=== PATIENT | female | born 1940 | race Caucasian/White ===

== ENCOUNTER 2017-12-21 12:38 | Inpatient (IN) | payer MEDICARE ==
[2017-12-21 13:37] VITALS: BMI 38.8
[2017-12-21 13:59] LABS: #Basophils 0.1 thou/uL (0.0-0.2); #Eosinphils 0.1 thou/uL (0.0-0.7); #Lymphocytes 0.9 thou/uL (1.20-3.40); #Monocytes 0.6 thou/uL (0.11-0.59); #Neutrophils 7.2 thou/uL (1.40-6.50); %Basophils 0.7 % (0.0-1.0); %Eosinophils 0.9 % (0.0-10.0); %Lymphocytes 10.6 % (21.0-51.0); %Monocytes 6.4 % (0.0-10.0); %Neutrophils 81.4 % (42.0-75.0); Hemoglobin 13.9 g/dL (12.0-16.0); Mean Corpuscular HGB CONC 32.2 g/dL (32.0-36.0); Mean Corpuscular Hemoglobin 29.9 pg (27.0-31.0); Mean Corpuscular Volume 92.7 fL (78.0-98.0); Mean Platelet Volume 8.5 fL (7.4-10.4); Platelet Count 236 thou/uL (130-400); Red Blood Cell (RBC) Count 4.65 mill/uL (4.20-5.40); White Blood Cell (WBC) Count 8.8 thou/uL (4.8-10.8)
[2017-12-21 14:05] LABS: INR-International Normal Ratio 1.3; PTT 29.5 SEC (22.9-36.1); Prothrombin Time 15.8 SEC (12.0-14.7)
[2017-12-21 14:20] LABS: ALT (SGPT) 10 U/L (8-55); AST (SGOT) 19 U/L (5-34); Albumin 3.8 g/dL (3.4-4.8); Alkaline Phosphatase 129 U/L (40-150); Anion Gap 11 mmol/L (10-20); BUN (Urea Nitrogen) 13 mg/dL (9.8-20.1); Calc. Creatinine Clearance 105 mL/min (70-130); Calcium 9.5 mg/dL (7.8-10.44); Carbon Dioxide 29 mmol/L (23-31); Chloride 106 mmol/L (98-107); Estimated GFR-MDRD 68; Globulin 2.8 g/dL (2.4-3.5); Glucose 109 mg/dL (83-110); Potassium 3.4 mmol/L (3.5-5.1); Protein, Total 6.6 g/dL (6.0-8.3); Sodium 143 mmol/L (136-145)
--- NOTE | 2017-12-21 14:28 | RAD ---
THREE VIEWS LEFT FOOT: Comparison: None. History: Non-healing foot ulcer. FINDINGS: Three views of the left foot shows the patient to be status post resection of the distal aspect of th e fifth metatarsal. There is a wound along the great toe metatarsal phalangeal joint. There is erosio n of the first metatarsal head concerning for osteomyelitis. No other osseous erosions are seen. Dege nerative changes are seen in the midfoot and hindfoot. IMPRESSION: Osseous erosions involving the first metatarsal head are concerning for osteomyelitis. POS: GAIL
[2017-12-21] MEDS: cefTRIAXone\\ROCEPHIN 2 GM in Sodium Chloride 0.9% 100 ML IVPB SCH (18:25)
[2017-12-21] MEDS: Pregabalin 50 MG CAP PO SCH (19:59)
[2017-12-21] MEDS: metroNIDAZOLE 500 MG TAB PO SCH (19:59)
[2017-12-21] MEDS: Melatonin 3 MG TAB PO SCH (19:59)
[2017-12-21] MEDS: traMADol HCl 50 MG TAB PO SCH (20:02)
[2017-12-21] MEDS: Acyclovir 400 mg Tablet PO SCH (20:03)
[2017-12-21] MEDS: Fluticasone Propionate Nasal Spray 16 gm Bottle NASAL SCH (20:04)
--- NOTE | 2017-12-21 20:32 | CON ---
DATE OF CONSULTATION: 12/21/2017 REASON FOR CONSULTATION: Possible osteomyelitis, left first MPJ area. HISTORY OF PRESENT ILLNESS: A 77-year-old who has a history of hypertension, deep vein thrombosis, p ulmonary disease with pulmonary embolism and neuropathy of unclear etiology, who has developed an ulc eration of the left first MPJ skin site for the past few weeks, previously managed by paramedical aide with progression of the area of ulceration and development of areas of necrosis. Patient was admitted, a nd she has plain film evidence of areas of osteolysis involving the first metatarsal head. The patient currently is in no apparent distress, no headaches, visual symptoms, sore throat, odynoph agia, dysphagia. No cough or sputum production or chest pain. No abdominal pain or diarrhea. No ge nitourinary symptoms. No neurological symptoms outside the neuropathy related symptoms. PAST MEDICAL HISTORY: Prior DVT and neuropathy of unclear etiology, also with history of atrial fibr illation on Xarelto and had previously an vena cava filter placed. PAST SURGICAL HISTORY: Includes left TKR, right shoulder repair, tubal ligation, appendectomy. I be lieve she also had a right TKR. ALLERGIES: None. She does have some adverse gastrointestinal reactions to OPIOIDS. CURRENT MEDICATION LIST: No medications are recorded at this time. PHYSICAL EXAMINATION: VITAL SIGNS: Temperature 98, blood pressure 160/79, pulse 75, respirations 16, O2 sat 99%. SKIN: Shows a round necrotic ulcer on medial aspect of the left first MPJ skin site measuring about 3 cm in diameter, appears to be a tendon exposure in the medial aspect and I was able to probe it abo ut 1 cm, but no evidence of bone exposure upon probing of the area. She has evidence of mild stasis dermatitis in lower extremities. Peripheral IV access. No Santoro catheter. HEENT: Ocular movements are conjugate. Nasal passages patent. Oral cavity normal. NECK: Supple. No jugular venous distention. LUNGS: Symmetric. Clear breath sounds. HEART: S1, S2, regular rate. No S3, S4. ABDOMEN: Soft, nondistended, nontender. No ascites. No bladder distention. EXTREMITIES: Pulses are faintly palpable in popliteals and dorsalis pedis. Cap refill is normal. NEUROLOGIC: Cognitive function appears to be normal. LABORATORY DATA: White cell count 8.8, hemoglobin 13.9, platelets 236. Sodium 143, creatinine 0.82 with normal transaminases. ASSESSMENT: History of atrial fibrillation, prior deep vein thrombosis, varicosities with I believe a recent procedure of venous ablation in the left lower extremity and now development of an ulcerated area in the medial aspect of the left MPJ skin site, probably secondary to neuropathy with progressi on and evidence of osteomyelitis. DISCUSSION: There is evidence of penetration of this ulcer and the x-ray indicates osteomyelitis of the metatarsal head by contiguity. This area will require debridement and maybe even demand amputati on of the first ray. We will start antimicrobial therapy for the time being with broad spectrum cove rage and consult General Surgery. We will order formal arterial studies if those have not been done yet.
--- NOTE | 2017-12-21 21:59 | ULT ---
LEFT LOWER EXTREMITY ARTERIAL DOPPLER ULTRASOUND: 12/21/17 HISTORY: Left lower extremity pain. FINDINGS: The peak systolic velocities in the left lower extremity arteries are as follows: NAPHTHALENE STILL OPERATOR: 143 cm/s. Profunda: 80 cm/s. Proximal SFA: 127 cm/s. Mid SFA: 144 cm/s. Distal SFA: 105 cm/s. Popliteal artery: 154 cm/s. Anterior tibial artery: 146 cm/s. Posterior tibial artery: 80 cm/s. Dorsalis pedis artery: 44 cm/s. There is triphasic waveform in the NAPHTHALENE STILL OPERATOR and proximal SFA, biphasic in the profunda and monophasic in t he remainder of the arteries mentioned above. IMPRESSION: No evidence of arterial occlusion in the left lower extremity. POS: GAIL
--- NOTE | 2017-12-22 06:03 | PDOC.EVN ---
Event Note - Event Note Event Note: h&p dictated [id number]
--- NOTE | 2017-12-22 07:58 | HP ---
CHIEF COMPLAINT: Concern for osteomyelitis. HISTORY OF PRESENT ILLNESS: This is a 77-year-old female who was visiting her customer advocate on a [facility] outpatient followup when she was found to have a foot wound progression that was concerning for t he possibility of osteomyelitis. The patient was subsequently admitted via a direct admission proces s to our service. The patient has a known prior history of hypertension, hyperlipidemia, depression, Alzheimer's, atria l fibrillation, prior history of PE and DVT in 2012 and chronic pain who presented with a concern for osteomyelitis secondary to an ulcer located along the medial aspect of her left first metatarsal. At the time of my evaluation, the patient is accompanied by her daughter at bedside. They state that over the last several months this wound has been treated on an outpatient basis with poor healing. The patient has longstanding neuropathy and typically does not have any pain or discomfort in both of her lower extremities; however, over the last few days she has developed an increasingly throbbing s ensation around that wound area. The patient otherwise denies any fevers, chills, nausea or vomiting . The patient denies any additional or recent trauma to that area. The patient denies any prior sim ilar episodes. REVIEW OF SYSTEMS: As per HPI. CONSTITUTIONAL: No fevers, no chills, no significant weight changes in the last few months. HEENT: No new headaches, lightheadedness, dizziness, or changes in vision. CARDIOVASCULAR: Denies any chest pain, chest pressure, easy fatigability with exertion, left-sided a rm numbness or tingling. RESPIRATORY: No dyspnea with exertion. No new shortness of breath, no new cough or congestion. GASTROINTESTINAL: Denies any nausea, vomiting, abdominal pain. Denies any issues with constipation or diarrhea. GENITOURINARY: Denies any dysuria, change in urinary frequency, quality, quantity or odor. MUSCULOSKELETAL: No new myalgias or arthralgias, other than the pain described above in the HPI. The remainder of the review of systems is otherwise negative. PAST MEDICAL HISTORY: As per history of present illness, includes: 1. Hypertension. 2. Hyperlipidemia. 3. Cholesterol. 4. A prior history of PE and left lower extremity DVT in 2011. 5. Atrial fibrillation. 6. Spondylosis of the lower spine, status post multiple steroid injections. 7. Status post fifth metatarsal resection of the fifth metatarsal head, resection of the left foot i n 2011. 8. IVC filter placement for DVT in 2014. 9. Left heart catheterization in 2013. 10. Left total knee replacement in 2014. 11. History of macular degeneration. 12. History of "Alzheimer's" disease. HOME MEDICATIONS: Please see the EMR for full details. The patient denies any recent rjvt-trk-smekq er medications, any herbal supplementations or any new vitamins. The patient denies any recent spence es to her home medication regimen which currently include memantine 5 mg p.o. daily, donepezil 5 mg p .o. daily, omeprazole 20 mg p.o. daily, aspirin 325 mg p.o. daily. Cetirizine 10 mg p.o. daily, tomás tonin 3 mg p.o. at bedtime, pregabalin 50 mg p.o. b.i.d., Cholecalciferol 4000 units p.o. daily. Acy clovir 400 mg p.o. b.i.d., tramadol 50 mg p.o. at bedtime, Fluticasone 2 sprays each nares at bedtime , diltiazem 120 mg p.o. daily. ALLERGIES: Include MORPHINE which filled the patient is a sense of overwhelming drude as the reactio n. FAMILY HISTORY: The patient denies any family history of known peripheral vascular disease. Denies any family history of recurrent infections or diabetic infection. SOCIAL HISTORY: The patient resides with her daughter who was with her at bedside. The patient does not use any alcohol, tobacco or illicit drug use actively. CODE STATUS: The daughter is designated as the medical decision maker if the patient is unable to m chepe her medical decisions. The patient is currently a full code as per discussion at bedside. PHYSICAL EXAMINATION: GENERAL: The patient is awake, alert, conversant, in no acute distress, seated in the hospital bed. HEENT: Normocephalic, atraumatic. Ocular motions are intact. Moist mucous membranes. CARDIOVASCULAR: S1, S2. No murmurs, rubs or gallops. Pulses 2+ bilateral upper extremities, trace bilateral peripheral edema. No carotid bruits. RESPIRATORY: Reasonable air movement. No wheezes, rales or rhonchi. CHEST: Clear to auscultation. No conversational dyspnea. ABDOMEN: Positive bowel sounds, soft, nontender to palpation. MUSCULOSKELETAL: Able to move all 4 extremities independently. The affected lesion is seen, it is a deeply ulcerative lesion and circular in appearance, also with significant amount of purulence scatt ered throughout the lesion which is approximately 1 inch in diameter. IMAGIN12/21/2017, x-ray of the foot. Impression: "osseous erosion involving the first metatarsal head are concerning for osteomyelitis". LABORATORY DATA: WBC 8.8, hemoglobin 13.9, hematocrit 43.1, platelets 236, neutrophils 81%, lymphocy bassem 10.6. PT 15.8, INR 1.3. Sodium 143, potassium 3.4, chloride 106, bicarbonate 59, BUN 13, creati nine 0.82, glucose 109, calcium 9.5, total bilirubin 1.0, AST 19, ALT 10, alkaline phosphatase 129, t otal protein 6.6, albumin 3.8. ASSESSMENT AND PLAN: This is a 77-year-old female who was brought in for concern worsening diabetic ulcer. 1. Concern for probable osteomyelitis. I appreciate Infectious Disease consultation. The patient h as been started on empiric antibiotics including ceftriaxone and metronidazole. Further antibiotic m anagement and infectious management as per Dr. Baum. 2. Prior history of deep venous thrombosis and PE. Continue the patient on her home regimen. The p atient currently also has an IVC filter in place it appears. 3. Left lower extremity pain likely related to the infectious process. General Surgery request has also been placed. Question ideal ____ imaging for the patient beyond x-ray. Whether or not an MRI i s warranted, will defer to both Infectious Disease and General Surgery. 4. Diet: Cardiac. 5. Activity: As tolerated. 6. DVT prophylaxis with enoxaparin.
[2017-12-22] MEDS ORDERED: Non-Formulary Item 1 EACH (Omeprazole [Omeprazole] 20 MG) PO SCH (09:00)
[2017-12-22] MEDS: metroNIDAZOLE 500 MG TAB PO SCH ×3 (09:46→21:20)
[2017-12-22] MEDS: Donepezil HCl 5 MG TAB PO SCH (09:46)
[2017-12-22] MEDS: Aspirin 325 MG TAB PO SCH (09:50)
[2017-12-22] MEDS: Acyclovir 400 mg Tablet PO SCH ×2 (09:51→21:20)
[2017-12-22] MEDS: Cetirizine HCl 10 MG TAB PO SCH (09:51)
[2017-12-22] MEDS: Enoxaparin Sodium 40 MG/0.4 ML SYRINGE SC SCH (09:51)
[2017-12-22] MEDS: Pregabalin 50 MG CAP PO SCH ×2 (09:52→21:20)
[2017-12-22] MEDS: cefTRIAXone\\ROCEPHIN 2 GM in Sodium Chloride 0.9% 100 ML IVPB SCH (16:00)
--- NOTE | 2017-12-22 17:49 | PDOC.PN ---
- Subjective Encounter Start Date: 12/22/17 Encounter Start Time: 08:40 Pt seen for followup re: osteomyelitis. Denies chest pain. denies foot pain. denies fevers. - Objective Vital Signs & Weight: Vital Signs (12 hours) Temp Pulse Resp BP BP Pulse Ox 12/22/17 16:21 98 F 67 19 125/61 94 L 12/22/17 11:29 98 F 63 22 H 138/68 93 L 12/22/17 09:48 73 149/67 H 12/22/17 08:00 93 L 12/22/17 07:31 98.2 F 71 20 156/73 H 93 L Weight Admit Weight 255 lb 5.007 oz Weight 255 lb 5.007 oz I&O: 12/21/17 12/22/17 12/23/17 06:59 06:59 06:59 Intake Total 480 580 Balance 480 580 Result Diagrams: 12/21/17 13:37 12/21/17 13:37 Phys Exam - Physical Examination Obese HEENT: moist MMs, sclera anicteric, oral pharynx no lesions, 2+ tonsils Neck: no nodes, no JVD, supple, full ROM Respiratory: no wheezing, no rales, no rhonchi, clear to auscultation bilateral Cardiovascular: RRR, no rub S1, s2 Gastrointestinal: soft, non-tender, no distention, positive bowel sounds Neurological: moves all 4 limbs Psychiatric: normal affect Deviation from normal: Oriented to person and place, not to time Deviation from normal: Ulcer over medial aspect of left foot Dx/Plan (1) Osteomyelitis Code(s): M86.9 - OSTEOMYELITIS, UNSPECIFIED Status: Acute Comment: continue IV ceftriaxone and metronidazole (2) HTN (hypertension) Code(s): I10 - ESSENTIAL (PRIMARY) HYPERTENSION Status: Chronic Comment: controlled (3) Afib Code(s): I48.91 - UNSPECIFIED ATRIAL FIBRILLATION Status: Chronic Comment: continue diltiazem (4) Alzheimer disease Code(s): G30.9 - ALZHEIMER'S DISEASE, UNSPECIFIED; F02.80 - DEMENTIA IN OTH DISEASES CLASSD ELSWHR W/O BEHAVRL DISTURB Status: Chronic Comment: continue Aricept and Namenda - Plan * . Review of Systems - Review of Systems Constitutional: negative: fever, chills, sweats, weakness, malaise Respiratory: negative: Cough, Shortness of Breath, SOB with Excertion, Pleuritic Pain, Wheezing Cardiovascular: negative: chest pain, palpitations, orthopnea, paroxysmal nocturnal dyspnea, edema, light headedness Gastrointestinal: negative: Nausea, Vomiting, Abdominal Pain, Diarrhea, Constipation, Melena, Hematochezia Musculoskeletal: negative: Neck Pain, Shoulder Pain, Arm Pain, Back Pain, Hand Pain, Leg Pain, Foot Pain Skin: Lesions Neurological: negative: Weakness, Numbness, Incoordination, Change in Speech, Confusion, Seizures - Medications/Allergies Allergies/Adverse Reactions: Allergies Allergy/AdvReac Type Severity Reaction Status Date / Time morphine Allergy Verified 12/21/17 13:16 Medications: Current Medications Acyclovir (Zovirax) 400 mg PO BID [facility] Last Admin: 12/22/17 09:51 Dose: 400 mg Aspirin (Aspirin) 325 mg PO DAILY [facility] Last Admin: 12/22/17 09:50 Dose: 325 mg Cetirizine HCl (Zyrtec) 10 mg PO DAILY [facility] Last Admin: 12/22/17 09:51 Dose: 10 mg Cholecalciferol (Vitamin D3) 4,000 units PO DAILY [facility] Last Admin: 12/22/17 09:47 Dose: 4,000 units Diltiazem HCl (Cardizem Cd) 120 mg PO DAILY [facility] Last Admin: 12/22/17 09:48 Dose: 120 mg Donepezil HCl (Aricept) 5 mg PO DAILY [facility] Last Admin: 12/22/17 09:46 Dose: 5 mg Enoxaparin Sodium (Lovenox) 40 mg SC 0900 [facility] Last Admin: 12/22/17 09:51 Dose: 40 mg Fluticasone Propionate (Flonase Nasal [place]) 0 gm NASAL HS [facility] Last Admin: 12/21/17 20:04 Dose: 2 sprays Ceftriaxone Sodium 2 gm/ (Sodium Chloride) 100 mls @ 200 mls/hr IVPB Q24HR [facility] Last Admin: 12/22/17 16:00 Dose: 100 mls Melatonin (Melatonin) 3 mg PO HS [facility] Last Admin: 12/21/17 19:59 Dose: 3 mg Memantine (Namenda) 5 mg PO DAILY [facility] Last Admin: 12/22/17 09:46 Dose: 5 mg Metronidazole (Flagyl) 500 mg PO TID [facility] Last Admin: 12/22/17 14:25 Dose: 500 mg Pantoprazole Sodium (Protonix) 40 mg PO DAILY [facility] Last Admin: 12/22/17 09:50 Dose: 40 mg Pregabalin (Lyrica) 50 mg PO BID [facility] Last Admin: 12/22/17 09:52 Dose: 50 mg Sodium Chloride (Flush - Normal Saline) 10 ml IVF Q12HR [facility] Last Admin: 12/22/17 09:53 Dose: 10 ml Sodium Chloride (Flush - Normal Saline) 10 ml IVF PRN PRN PRN Reason: Saline Flush Tramadol HCl (Ultram) 50 mg PO HS [facility] Last Admin: 12/21/17 20:02 Dose: 50 mg
[2017-12-22] MEDS: Melatonin 3 MG TAB PO SCH (21:19)
[2017-12-22] MEDS: traMADol HCl 50 MG TAB PO SCH (21:19)
[2017-12-22] MEDS: Fluticasone Propionate Nasal Spray 16 gm Bottle NASAL SCH (21:20)
--- NOTE | 2017-12-23 00:22 | CON ---
DATE OF CONSULTATION: 12/22/2017 She is an inpatient in room #4412 SUBJECTIVE FINDINGS: The patient was found to be sleep in her bed. The patient was easily awoken. I have been consulted for a diagnosis of osteomyelitis of the left first metatarsal head. Patient is diabetic and has neuropathy. Patient is known to our office. OBJECTIVE FINDINGS: Patient had an ultrasound of the right arterial flow yesterday on 12/21/2017. IMPRESSION: Reveals no evidence of arterial occlusion in the left lower extremity. X-ray examinatio n reviewed and seen on x-ray is lysis of the first metatarsal head and medial base of the proximal ph alanx first MPJ. It appears that the wound has the first metatarsophalangeal joint exposed. After removal of the patient's clean and dry bandaging, the wound was examined. The wound is dry and has a foul odor. Examination shows the first metatarsal head and base of the proximal phalanx in th e wound. There is erythema that surrounding the foot dorsally and medially. No exudate from the wou nd is noted. ASSESSMENT AND PLAN: The patient has osteomyelitis is evident from radiographic examination. The pa tietyrel has a necrotic ulcer on the medial aspect of the first metatarsophalangeal joint left foot with a foul smell and no exudate. There is also cellulitis to the foot. After discussing the current problems with the patient, we have scheduled an incision and drainage an d amputation of the distal first metatarsal with possible first digit. The patient asked me to call her son Ajay, which was done the night and the same problems and procedure was discussed with him. I informed Dr. Baum of her current status and of the procedure to be performed on 12/23/2017 at noon .
[2017-12-23] MEDS: Aspirin 325 MG TAB PO SCH (11:26)
[2017-12-23] MEDS: Donepezil HCl 5 MG TAB PO SCH (11:26)
[2017-12-23] MEDS: Acyclovir 400 mg Tablet PO SCH ×2 (11:26→21:44)
[2017-12-23] MEDS: Cetirizine HCl 10 MG TAB PO SCH (11:26)
[2017-12-23] MEDS: Enoxaparin Sodium 40 MG/0.4 ML SYRINGE SC SCH (11:26)
[2017-12-23] MEDS: metroNIDAZOLE 500 MG TAB PO SCH ×3 (11:27→21:45)
[2017-12-23] MEDS: Pregabalin 50 MG CAP PO SCH ×2 (11:27→21:46)
[2017-12-23] MEDS ORDERED: Bupivacaine PF 0.5% 30 ML VIAL ONE (12:26)
[2017-12-23] MEDS ORDERED: Neomycin-Polymyxin 1 ML AMP ONE (12:26)
[2017-12-23] MEDS ORDERED: Fentanyl 100 MCG/2 ML VIAL ONE (12:33)
[2017-12-23] MEDS ORDERED: Ondansetron HCl/PF 4 MG/2 ML Vial ONE (13:32)
[2017-12-23] MEDS ORDERED: Lidocaine 1% PF 5 ML VIAL ONE (13:32)
[2017-12-23] MEDS ORDERED: Succinylcholine Chloride 20 MG/ML 10 ml SYRINGE FS ONE (13:32)
[2017-12-23] MEDS ORDERED: Glycopyrrolate 0.2 MG/ML 5 ML SYRINGE ONE (13:32)
[2017-12-23] MEDS ORDERED: PROPOFOL 200 MG/20 ML VIAL ONE (13:32)
--- NOTE | 2017-12-23 14:56 | PDOC.PN ---
- Subjective Encounter Start Date: 12/23/17 Encounter Start Time: 09:20 Pt seen for followup re: osteomyelitis. Denies chest pain, shortness of breath , fevers or chills. - Objective MAR Reviewed: Yes Vital Signs & Weight: Vital Signs (12 hours) Temp Pulse Resp BP Pulse Ox 12/23/17 14:27 97.7 F 77 18 123/77 94 L 12/23/17 10:45 98.3 F 68 14 167/91 H 93 L 12/23/17 07:18 98.7 F 62 14 131/75 92 L Weight Admit Weight 255 lb 5.007 oz Weight 255 lb 5.007 oz I&O: 12/22/17 12/23/17 12/24/17 06:59 06:59 06:59 Intake Total 480 580 Balance 480 580 Result Diagrams: 12/21/17 13:37 12/21/17 13:37 Additional Labs: labs reviewed by me Phys Exam - Physical Examination Constitutional: NAD HEENT: moist MMs, sclera anicteric, oral pharynx no lesions, 2+ tonsils Neck: no nodes, no JVD, supple, full ROM Respiratory: no wheezing, no rales, no rhonchi, clear to auscultation bilateral Cardiovascular: RRR, no rub Gastrointestinal: soft, non-tender, no distention, positive bowel sounds Musculoskeletal: pulses present Neurological: moves all 4 limbs Psychiatric: normal affect Deviation from normal: ulcer medial aspect of left foot Dx/Plan (1) Osteomyelitis Code(s): M86.9 - OSTEOMYELITIS, UNSPECIFIED Status: Acute Comment: continue IV ceftriaxone and metronidazole, pt to go for surgery today (2) HTN (hypertension) Code(s): I10 - ESSENTIAL (PRIMARY) HYPERTENSION Status: Chronic Comment: controlled (3) Afib Code(s): I48.91 - UNSPECIFIED ATRIAL FIBRILLATION Status: Chronic Comment: on diltiazem (4) Alzheimer disease Code(s): G30.9 - ALZHEIMER'S DISEASE, UNSPECIFIED; F02.80 - DEMENTIA IN OTH DISEASES CLASSD ELSWHR W/O BEHAVRL DISTURB Status: Chronic Comment: on Aricept and Namenda - Plan * . Review of Systems - Review of Systems Constitutional: negative: fever, chills, sweats, weakness, malaise Respiratory: negative: Cough, Shortness of Breath, SOB with Excertion, Pleuritic Pain, Wheezing Cardiovascular: other. negative: chest pain, palpitations, orthopnea, paroxysmal nocturnal dyspnea, edema, light headedness Gastrointestinal: negative: Nausea, Vomiting, Abdominal Pain, Diarrhea, Constipation, Melena, Hematochezia Musculoskeletal: negative: Neck Pain, Shoulder Pain, Arm Pain, Back Pain, Hand Pain, Leg Pain, Foot Pain Skin: Lesions - Medications/Allergies Allergies/Adverse Reactions: Allergies Allergy/AdvReac Type Severity Reaction Status Date / Time morphine Allergy Verified 12/21/17 13:16 Medications: Current Medications Acyclovir (Zovirax) 400 mg PO BID [facility] Last Admin: 12/23/17 11:26 Dose: Not Given Aspirin (Aspirin) 325 mg PO DAILY [facility] Last Admin: 12/23/17 11:26 Dose: Not Given Cetirizine HCl (Zyrtec) 10 mg PO DAILY [facility] Last Admin: 12/23/17 11:26 Dose: Not Given Cholecalciferol (Vitamin D3) 4,000 units PO DAILY [facility] Last Admin: 12/23/17 11:26 Dose: Not Given Diltiazem HCl (Cardizem Cd) 120 mg PO DAILY [facility] Last Admin: 12/23/17 11:26 Dose: Not Given Donepezil HCl (Aricept) 5 mg PO DAILY [facility] Last Admin: 12/23/17 11:26 Dose: Not Given Enoxaparin Sodium (Lovenox) 40 mg SC 0900 [facility] Last Admin: 12/23/17 11:26 Dose: Not Given Fluticasone Propionate (Flonase Nasal [place]) 0 gm NASAL HS [facility] Last Admin: 12/22/17 21:20 Dose: 2 sprays Ceftriaxone Sodium 2 gm/ (Sodium Chloride) 100 mls @ 200 mls/hr IVPB Q24HR [facility] Last Admin: 12/22/17 16:00 Dose: 100 mls Melatonin (Melatonin) 3 mg PO HS [facility] Last Admin: 12/22/17 21:19 Dose: 3 mg Memantine (Namenda) 5 mg PO DAILY [facility] Last Admin: 12/23/17 11:26 Dose: Not Given Metronidazole (Flagyl) 500 mg PO TID [facility] Last Admin: 12/23/17 11:27 Dose: Not Given Pantoprazole Sodium (Protonix) 40 mg PO DAILY [facility] Last Admin: 12/23/17 11:27 Dose: Not Given Pregabalin (Lyrica) 50 mg PO BID [facility] Last Admin: 12/23/17 11:27 Dose: Not Given Sodium Chloride (Flush - Normal Saline) 10 ml IVF Q12HR [facility] Last Admin: 12/23/17 11:27 Dose: Not Given Sodium Chloride (Flush - Normal Saline) 10 ml IVF PRN PRN PRN Reason: Saline Flush Tramadol HCl (Ultram) 50 mg PO HS [facility] Last Admin: 12/22/17 21:19 Dose: 50 mg
[2017-12-23] MEDS: cefTRIAXone\\ROCEPHIN 2 GM in Sodium Chloride 0.9% 100 ML IVPB SCH (16:36)
[2017-12-23] MEDS: Melatonin 3 MG TAB PO SCH (21:44)
[2017-12-23] MEDS: traMADol HCl 50 MG TAB PO SCH (21:47)
[2017-12-23] MEDS: Fluticasone Propionate Nasal Spray 16 gm Bottle NASAL SCH (21:50)
--- NOTE | 2017-12-23 22:19 | OP ---
DATE OF SERVICE: 12/23/2017 PREOPERATIVE DIAGNOSES: Osteomyelitis of the first metatarsal head, proximal phalanx and necrosis f the first metatarsophalangeal joint, left foot. POSTOPERATIVE DIAGNOSES: Osteomyelitis of the first metatarsal head, proximal phalanx and necrosis o f the first metatarsophalangeal joint, left foot. PROCEDURE: Amputation of the hallux and partial first ray with debridement of abscess, left foot. ANESTHESIA: General with local. ESTIMATED BLOOD LOSS: Less than 100 mL. No hemostasis utilized. PATHOLOGY: Culture and sensitivity with Gram stain sent to the lab. Necrotic first metatarsophalang eal joint with adjacent bone noted. COMPLICATIONS: None. Patient is readmitted to the hospital for wound care and IV antibiotics.
--- NOTE | 2017-12-23 22:22 | OP ---
DATE OF PROCEDURE: 12/23/2017 SURGEON: Tomi Ballesteros D.P.M PREOPERATIVE DIAGNOSES: Osteomyelitis, first metatarsal head, base of the proximal phalanx and absce ss beneath the first ray distally, left foot. POSTOPERATIVE DIAGNOSES: Osteomyelitis, first metatarsal head, base of the proximal phalanx and absc ess beneath the first ray distally, left foot. SURGICAL PROCEDURE: Hallux amputation with partial first ray with incision and debridement of necrot ic tissue and plantar abscess, left foot. ANESTHESIA: General with ankle block. ESTIMATED BLOOD LOSS: Less than 100 mL. No hemostasis utilized. OBJECTIVE FINDINGS: The patient was taken to the operating room, placed on the operating room table in the supine position. After general anesthesia was achieved, an ankle block was performed on the l eft lower extremity. Next, the left lower extremity was scrubbed and draped in the usual surgical ma nner. Attention was directed to the left foot. An incision was made dorsal to the ulceration. At this idalia e, blunt dissection was utilized around the metatarsal and it was noted that necrotic tissue was at t he lateral aspect. Significant necrotic tissue at the first metatarsophalangeal joint also noted. A t this time, it was decided to remove the hallux with a partial first ray. An incision was made in a n elliptical manner from skin to bone surrounding the distal first metatarsal and hallux. Care was t aken not to expose the clean tissue to the ulcerative site. The hallux was clamped with a traumatic towel clamp and using a power saw, the first metatarsal was incised at an angle and the anatomical un it was removed. At this time, the plantar abscess was debrided at the first metatarsal. Next, with a rongeur and sharp dissection, all necrotic tissues were removed. Next, copious lavage with irri ernestine was performed. All remaining tissues appeared to be healthy and bleeding well. Several small v essels were bleeding and were cauterized. The wound was packed with iodoform gauze and retention suture placed over the skin flaps using 2-0 ny bandar suture. Dressings were then applied consisting of 4 x 4 gauze, Nayeli, and an Kevin bandage. Attention was directed to the back table. A deep culture was obtained from the amputated first metat arsal hallux unit. This was sent to the lab for culture, sensitivity, and Gram stain. The patient tolerated the procedure and anesthesia well. The patient left the operating room to bernice very room with vital signs stable. The patient will be readmitted to the hospital for wound care, pl acement of VAC. Physical therapy and to get IV antibiotics until cultures are returned.
[2017-12-24] MEDS: Aspirin 325 MG TAB PO SCH (08:06)
[2017-12-24] MEDS: metroNIDAZOLE 500 MG TAB PO SCH ×3 (08:06→20:43)
[2017-12-24] MEDS: Pregabalin 50 MG CAP PO SCH ×2 (08:07→20:43)
[2017-12-24] MEDS: Donepezil HCl 5 MG TAB PO SCH (08:09)
[2017-12-24] MEDS: Enoxaparin Sodium 40 MG/0.4 ML SYRINGE SC SCH (08:10)
[2017-12-24] MEDS: Acyclovir 400 mg Tablet PO SCH ×2 (08:56→20:43)
[2017-12-24] MEDS: Cetirizine HCl 10 MG TAB PO SCH (08:57)
[2017-12-24 09:46] LABS: #Basophils 0.1 thou/uL (0.0-0.2); #Eosinphils 0.1 thou/uL (0.0-0.7); #Lymphocytes 0.8 thou/uL (1.20-3.40); #Monocytes 1.1 thou/uL (0.11-0.59); #Neutrophils 9.7 thou/uL (1.40-6.50); %Basophils 0.5 % (0.0-1.0); %Eosinophils 0.5 % (0.0-10.0); %Lymphocytes 6.9 % (21.0-51.0); %Monocytes 9.3 % (0.0-10.0); %Neutrophils 82.8 % (42.0-75.0); Hemoglobin 13.3 g/dL (12.0-16.0); Mean Corpuscular HGB CONC 31.8 g/dL (32.0-36.0); Mean Corpuscular Hemoglobin 29.8 pg (27.0-31.0); Mean Corpuscular Volume 93.9 fL (78.0-98.0); Mean Platelet Volume 8.6 fL (7.4-10.4); Platelet Count 212 thou/uL (130-400); RBC Distribution Width 13.2 % (11.5-14.5); Red Blood Cell (RBC) Count 4.48 mill/uL (4.20-5.40); White Blood Cell (WBC) Count 11.8 thou/uL (4.8-10.8)
[2017-12-24 10:06] LABS: Anion Gap 11 mmol/L (10-20); BUN (Urea Nitrogen) 10 mg/dL (9.8-20.1); Calc. Creatinine Clearance 99 mL/min (70-130); Calcium 8.8 mg/dL (7.8-10.44); Carbon Dioxide 29 mmol/L (23-31); Chloride 103 mmol/L (98-107); Estimated GFR-MDRD 63; Glucose 133 mg/dL (83-110); Potassium 3.8 mmol/L (3.5-5.1); Sodium 139 mmol/L (136-145)
--- NOTE | 2017-12-24 13:35 | PRG ---
DATE OF SERVICE: 12/24/2017 ROOM NUMBER: [id number] SUBJECTIVE FINDINGS: The patient is resting comfortably in bed. The patient has had the VAC placed on the wound. The patient states she is feeling well and having no pain. OBJECTIVE FINDINGS: The patient responds appropriately and VAC appears to be in good placement and f unctional. PLAN: The patient can be discharged to home from podiatric standpoint. The patient will follow up willy bryant in the office in 1-2 weeks post-discharge.
[2017-12-24] MEDS: cefTRIAXone\\ROCEPHIN 2 GM in Sodium Chloride 0.9% 100 ML IVPB SCH (16:20)
[2017-12-24] MEDS ORDERED: traMADol HCl 50 MG TAB PO PRN (17:29)
--- NOTE | 2017-12-24 17:31 | PDOC.PN ---
- Subjective Encounter Start Date: 12/24/17 Encounter Start Time: 09:10 Pt seen for followup re: osteomyelitis. Feels better. No chest pain. - Objective MAR Reviewed: Yes Vital Signs & Weight: Vital Signs (12 hours) Temp Pulse Resp BP BP Pulse Ox 12/24/17 11:15 98.8 F 86 18 131/81 93 L 12/24/17 08:09 84 12/24/17 08:00 92 L 12/24/17 07:30 98.4 F 84 18 127/76 90 L Weight Admit Weight 255 lb 5.007 oz Weight 255 lb 5.007 oz I&O: 12/23/17 12/24/17 12/25/17 06:59 06:59 06:59 Intake Total 580 460 Balance 580 460 Result Diagrams: 12/25/17 04:10 12/25/17 04:10 Additional Labs: Accuchecks 12/23/17 20:38 POC Glucose 140 H Labs reviewed by me Phys Exam - Physical Examination Obese HEENT: moist MMs Neck: supple Respiratory: clear to auscultation bilateral Cardiovascular: RRR Gastrointestinal: soft s/p amputation of L hallux and distal ray Neurological: moves all 4 limbs Psychiatric: normal affect Dx/Plan (1) Osteomyelitis Code(s): M86.9 - OSTEOMYELITIS, UNSPECIFIED Status: Acute Comment: continue IV ceftriaxone and metronidazole, s/p L hallux and ray amputation (2) HTN (hypertension) Code(s): I10 - ESSENTIAL (PRIMARY) HYPERTENSION Status: Chronic Comment: controlled (3) Afib Code(s): I48.91 - UNSPECIFIED ATRIAL FIBRILLATION Status: Chronic Comment: continue diltiazem (4) Alzheimer disease Code(s): G30.9 - ALZHEIMER'S DISEASE, UNSPECIFIED; F02.80 - DEMENTIA IN OTH DISEASES CLASSD ELSWHR W/O BEHAVRL DISTURB Status: Chronic Comment: continue Aricept and Namenda - Plan * . Tramadol for pain control Review of Systems - Review of Systems Cardiovascular: negative: chest pain, palpitations, orthopnea, paroxysmal nocturnal dyspnea, edema, light headedness Musculoskeletal: negative: Neck Pain, Shoulder Pain, Arm Pain, Back Pain, Hand Pain, Leg Pain, Foot Pain - Medications/Allergies Allergies/Adverse Reactions: Allergies Allergy/AdvReac Type Severity Reaction Status Date / Time morphine Allergy Verified 12/21/17 13:16 Medications: Current Medications Acyclovir (Zovirax) 400 mg PO BID [facility] Last Admin: 12/24/17 08:56 Dose: 400 mg Aspirin (Aspirin) 325 mg PO DAILY [facility] Last Admin: 12/24/17 08:06 Dose: 325 mg Cetirizine HCl (Zyrtec) 10 mg PO DAILY [facility] Last Admin: 12/24/17 08:57 Dose: Not Given Cholecalciferol (Vitamin D3) 4,000 units PO DAILY [facility] Last Admin: 12/24/17 08:08 Dose: 4,000 units Diltiazem HCl (Cardizem Cd) 120 mg PO DAILY [facility] Last Admin: 12/24/17 08:09 Dose: 120 mg Donepezil HCl (Aricept) 5 mg PO DAILY [facility] Last Admin: 12/24/17 08:09 Dose: 5 mg Enoxaparin Sodium (Lovenox) 40 mg SC 0900 [facility] Last Admin: 12/24/17 08:10 Dose: 40 mg Fluticasone Propionate (Flonase Nasal [place]) 0 gm NASAL HS [facility] Last Admin: 12/23/17 21:50 Dose: 2 sprays Ceftriaxone Sodium 2 gm/ (Sodium Chloride) 100 mls @ 200 mls/hr IVPB Q24HR [facility] Last Admin: 12/24/17 16:20 Dose: 100 mls Melatonin (Melatonin) 3 mg PO HS [facility] Last Admin: 12/23/17 21:44 Dose: 3 mg Memantine (Namenda) 5 mg PO DAILY [facility] Last Admin: 12/24/17 08:06 Dose: 5 mg Metronidazole (Flagyl) 500 mg PO TID [facility] Last Admin: 12/24/17 15:08 Dose: 500 mg Pantoprazole Sodium (Protonix) 40 mg PO DAILY [facility] Last Admin: 12/24/17 08:07 Dose: 40 mg Pregabalin (Lyrica) 50 mg PO BID [facility] Last Admin: 12/24/17 08:07 Dose: 50 mg Sodium Chloride (Flush - Normal Saline) 10 ml IVF Q12HR [facility] Last Admin: 12/24/17 08:10 Dose: 10 ml Sodium Chloride (Flush - Normal Saline) 10 ml IVF PRN PRN PRN Reason: Saline Flush Tramadol HCl (Ultram) 50 mg PO HS [facility] Last Admin: 12/23/17 21:47 Dose: 50 mg Tramadol HCl (Ultram) 50 mg PO Q6H PRN PRN Reason: Pain
[2017-12-24] MEDS: Melatonin 3 MG TAB PO SCH (20:43)
[2017-12-24] MEDS: traMADol HCl 50 MG TAB PO SCH (20:43)
[2017-12-24] MEDS: Fluticasone Propionate Nasal Spray 16 gm Bottle NASAL SCH (20:44)
[2017-12-24] MEDS: Acetaminophen 325 MG TAB PO PRN (22:02)
[2017-12-25 04:47] LABS: #Basophils 0.1 thou/uL (0.0-0.2); #Eosinphils 0.1 thou/uL (0.0-0.7); #Lymphocytes 1.2 thou/uL (1.20-3.40); #Monocytes 1.2 thou/uL (0.11-0.59); #Neutrophils 6.7 thou/uL (1.40-6.50); %Basophils 0.6 % (0.0-1.0); %Eosinophils 1.4 % (0.0-10.0); %Lymphocytes 12.9 % (21.0-51.0); %Monocytes 12.8 % (0.0-10.0); %Neutrophils 72.2 % (42.0-75.0); Hemoglobin 12.2 g/dL (12.0-16.0); Mean Corpuscular HGB CONC 32.4 g/dL (32.0-36.0); Mean Corpuscular Hemoglobin 30.4 pg (27.0-31.0); Mean Corpuscular Volume 93.8 fL (78.0-98.0); Mean Platelet Volume 8.8 fL (7.4-10.4); Platelet Count 195 thou/uL (130-400); RBC Distribution Width 13.1 % (11.5-14.5); White Blood Cell (WBC) Count 9.2 thou/uL (4.8-10.8)
[2017-12-25 05:13] LABS: Anion Gap 9 mmol/L (10-20); BUN (Urea Nitrogen) 11 mg/dL (9.8-20.1); Calc. Creatinine Clearance 98 mL/min (70-130); Calcium 8.7 mg/dL (7.8-10.44); Carbon Dioxide 29 mmol/L (23-31); Chloride 104 mmol/L (98-107); Estimated GFR-MDRD 62; Glucose 96 mg/dL (83-110); Potassium 3.2 mmol/L (3.5-5.1); Sodium 139 mmol/L (136-145)
[2017-12-25] MEDS: metroNIDAZOLE 500 MG TAB PO SCH ×3 (08:33→22:04)
[2017-12-25] MEDS: Aspirin 325 MG TAB PO SCH (08:33)
[2017-12-25] MEDS: Pregabalin 50 MG CAP PO SCH ×2 (08:33→22:04)
[2017-12-25] MEDS: Donepezil HCl 5 MG TAB PO SCH (08:33)
[2017-12-25] MEDS: Enoxaparin Sodium 40 MG/0.4 ML SYRINGE SC SCH (08:34)
[2017-12-25] MEDS: Cetirizine HCl 10 MG TAB PO SCH (08:38)
[2017-12-25] MEDS: Acyclovir 400 mg Tablet PO SCH ×2 (11:34→22:04)
[2017-12-25] MEDS: Acetaminophen 325 MG TAB PO PRN (11:37)
[2017-12-25] MEDS: cefTRIAXone\\ROCEPHIN 2 GM in Sodium Chloride 0.9% 100 ML IVPB SCH (16:28)
--- NOTE | 2017-12-25 17:57 | PDOC.PN ---
- Subjective Encounter Start Date: 12/25/17 Encounter Start Time: 09:20 Pt seen for followup re: osteomyelitis. Denies any complaints. - Objective MAR Reviewed: Yes Vital Signs & Weight: Vital Signs (12 hours) Temp Pulse Resp BP BP Pulse Ox 12/25/17 15:37 98.5 F 12/25/17 12:00 99.8 F H 12/25/17 11:27 98.9 F 12/25/17 08:31 64 110/67 12/25/17 08:00 91 L 12/25/17 07:24 97.6 F 64 18 110/67 91 L Weight Admit Weight 255 lb 5.007 oz Weight 255 lb 5.007 oz I&O: 12/24/17 12/25/17 12/26/17 06:59 06:59 06:59 Intake Total 460 490 Balance 460 490 Result Diagrams: 12/25/17 04:10 12/25/17 04:10 Additional Labs: labs reviewed by me Phys Exam - Physical Examination Constitutional: NAD HEENT: moist MMs Neck: supple Respiratory: clear to auscultation bilateral Cardiovascular: RRR Gastrointestinal: soft s/p L foot surgery Neurological: moves all 4 limbs Psychiatric: normal affect Dx/Plan (1) Osteomyelitis Code(s): M86.9 - OSTEOMYELITIS, UNSPECIFIED Status: Acute Comment: continue IV ceftriaxone and metronidazole, s/p L hallux and ray amputation on Dec 23, 2017. Pt will need wound vac. (2) HTN (hypertension) Code(s): I10 - ESSENTIAL (PRIMARY) HYPERTENSION Status: Chronic Comment: controlled (3) Afib Code(s): I48.91 - UNSPECIFIED ATRIAL FIBRILLATION Status: Chronic Comment: on diltiazem (4) Alzheimer disease Code(s): G30.9 - ALZHEIMER'S DISEASE, UNSPECIFIED; F02.80 - DEMENTIA IN OTH DISEASES CLASSD ELSWHR W/O BEHAVRL DISTURB Status: Chronic Comment: on Aricept and Namenda - Plan * . Review of Systems - Review of Systems Cardiovascular: negative: chest pain, palpitations, orthopnea, paroxysmal nocturnal dyspnea, edema, light headedness Gastrointestinal: negative: Nausea, Vomiting, Abdominal Pain, Diarrhea, Constipation, Melena, Hematochezia - Medications/Allergies Allergies/Adverse Reactions: Allergies Allergy/AdvReac Type Severity Reaction Status Date / Time morphine Allergy Verified 12/21/17 13:16 Medications: Current Medications Acetaminophen (Tylenol) 650 mg PO Q6H PRN PRN Reason: Mild Pain (1-3)/TEMP Last Admin: 12/25/17 11:37 Dose: 650 mg Acyclovir (Zovirax) 400 mg PO BID [facility] Last Admin: 12/25/17 11:34 Dose: 400 mg Aspirin (Aspirin) 325 mg PO DAILY [facility] Last Admin: 12/25/17 08:33 Dose: 325 mg Cetirizine HCl (Zyrtec) 10 mg PO DAILY [facility] Last Admin: 12/25/17 08:38 Dose: 10 mg Cholecalciferol (Vitamin D3) 4,000 units PO DAILY [facility] Last Admin: 12/25/17 08:33 Dose: 4,000 units Diltiazem HCl (Cardizem Cd) 120 mg PO DAILY [facility] Last Admin: 12/25/17 08:31 Dose: 120 mg Donepezil HCl (Aricept) 5 mg PO DAILY [facility] Last Admin: 12/25/17 08:33 Dose: 5 mg Enoxaparin Sodium (Lovenox) 40 mg SC 0900 [facility] Last Admin: 12/25/17 08:34 Dose: 40 mg Fluticasone Propionate (Flonase Nasal [place]) 0 gm NASAL HS [facility] Last Admin: 12/24/17 20:44 Dose: 2 sprays Ceftriaxone Sodium 2 gm/ (Sodium Chloride) 100 mls @ 200 mls/hr IVPB Q24HR [facility] Last Admin: 12/25/17 16:28 Dose: 100 mls Melatonin (Melatonin) 3 mg PO HS [facility] Last Admin: 12/24/17 20:43 Dose: 3 mg Memantine (Namenda) 5 mg PO DAILY [facility] Last Admin: 12/25/17 08:33 Dose: 5 mg Metronidazole (Flagyl) 500 mg PO TID [facility] Last Admin: 12/25/17 14:55 Dose: 500 mg Pantoprazole Sodium (Protonix) 40 mg PO DAILY [facility] Last Admin: 12/25/17 08:33 Dose: 40 mg Pregabalin (Lyrica) 50 mg PO BID [facility] Last Admin: 12/25/17 08:33 Dose: 50 mg Sodium Chloride (Flush - Normal Saline) 10 ml IVF Q12HR [facility] Last Admin: 12/25/17 08:34 Dose: 10 ml Sodium Chloride (Flush - Normal Saline) 10 ml IVF PRN PRN PRN Reason: Saline Flush Tramadol HCl (Ultram) 50 mg PO HS [facility] Last Admin: 12/24/17 20:43 Dose: 50 mg Tramadol HCl (Ultram) 50 mg PO Q6H PRN PRN Reason: Pain Last Admin: 12/25/17 08:32 Dose: 50 mg
[2017-12-25] MEDS: Melatonin 3 MG TAB PO SCH (22:04)
[2017-12-25] MEDS: traMADol HCl 50 MG TAB PO SCH (22:05)
[2017-12-25] MEDS: Fluticasone Propionate Nasal Spray 16 gm Bottle NASAL SCH (22:06)
[2017-12-26] MEDS: Pregabalin 50 MG CAP PO SCH ×2 (09:50→21:37)
[2017-12-26] MEDS: Aspirin 325 MG TAB PO SCH (09:50)
[2017-12-26] MEDS: Donepezil HCl 5 MG TAB PO SCH (09:50)
[2017-12-26] MEDS: metroNIDAZOLE 500 MG TAB PO SCH ×3 (09:51→21:36)
[2017-12-26] MEDS: Enoxaparin Sodium 40 MG/0.4 ML SYRINGE SC SCH (09:51)
[2017-12-26] MEDS: Cetirizine HCl 10 MG TAB PO SCH (09:53)
[2017-12-26] MEDS: Acyclovir 400 mg Tablet PO SCH ×2 (09:53→21:36)
--- NOTE | 2017-12-26 16:53 | PDOC.PN ---
- Subjective Encounter Start Date: 12/26/17 Encounter Start Time: 15:30 -: old records requested/rev Pt seen and examined, chart reviewed in its entirety, this is my first visit with this patient No F/C,no N/V/D/C, no CP or SOB, no cough. No acute events overnight, no new complaints All systems reviewed and neg except as above - Objective MAR Reviewed: Yes Vital Signs & Weight: Vital Signs (12 hours) Temp Pulse Resp BP BP Pulse Ox 12/26/17 09:49 68 145/83 H 12/26/17 08:00 97 12/26/17 07:19 98.2 F 68 18 145/83 H 97 Weight Admit Weight 255 lb 5.007 oz Weight 255 lb 5.007 oz I&O: 12/25/17 12/26/17 12/27/17 06:59 06:59 06:59 Intake Total 490 250 Balance 490 250 Result Diagrams: 12/25/17 04:10 12/25/17 04:10 Radiology Reviewed by me: Yes EKG Reviewed by me: Yes Phys Exam - Physical Examination Constitutional: NAD HEENT: PERRLA, moist MMs, sclera anicteric, oral pharynx no lesions Neck: no nodes, no JVD, supple, full ROM Respiratory: no wheezing, no rales, no rhonchi, clear to auscultation bilateral Cardiovascular: RRR, no significant murmur, no rub Gastrointestinal: soft, non-tender, no distention, positive bowel sounds Musculoskeletal: edema present Neurological: moves all 4 limbs Lymphatic: no nodes Psychiatric: normal affect Skin: no rash, normal turgor, cap refill <2 seconds Dx/Plan (1) Osteomyelitis Code(s): M86.9 - OSTEOMYELITIS, UNSPECIFIED Status: Acute Qualifiers: Osteomyelitis location: foot Laterality: left Comment: continue IV ceftriaxone and metronidazole, s/p L hallux and ray amputation on Dec 23, 2017. Pt will need wound vac. to go to [facility] when approved. path of proximal margin pending (2) Afib Code(s): I48.91 - UNSPECIFIED ATRIAL FIBRILLATION Status: Chronic Qualifiers: Atrial fibrillation type: chronic Qualified Code(s): I48.2 - Chronic atrial fibrillation Comment: on diltiazem for rate control (3) Alzheimer disease Code(s): G30.9 - ALZHEIMER'S DISEASE, UNSPECIFIED; F02.80 - DEMENTIA IN OTH DISEASES CLASSD ELSWHR W/O BEHAVRL DISTURB Status: Chronic Comment: on Aricept and Namenda (4) Dyslipidemia Code(s): E78.5 - HYPERLIPIDEMIA, UNSPECIFIED Status: Chronic (5) HTN (hypertension) Code(s): I10 - ESSENTIAL (PRIMARY) HYPERTENSION Status: Chronic Qualifiers: Hypertension type: essential hypertension Qualified Code(s): I10 - Essential (primary) hypertension Comment: controlled - Plan cont current plan of care, 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
[2017-12-26] MEDS: cefTRIAXone\\ROCEPHIN 2 GM in Sodium Chloride 0.9% 100 ML IVPB SCH (17:41)
[2017-12-26] MEDS: traMADol HCl 50 MG TAB PO SCH (21:36)
[2017-12-26] MEDS: Fluticasone Propionate Nasal Spray 16 gm Bottle NASAL SCH (21:37)
[2017-12-26] MEDS: Melatonin 3 MG TAB PO SCH (21:42)
[2017-12-27] MEDS: Acyclovir 400 mg Tablet PO SCH (09:49)
[2017-12-27] MEDS: Donepezil HCl 5 MG TAB PO SCH (09:49)
[2017-12-27] MEDS: metroNIDAZOLE 500 MG TAB PO SCH (09:49)
[2017-12-27] MEDS: Enoxaparin Sodium 40 MG/0.4 ML SYRINGE SC SCH (09:49)
[2017-12-27] MEDS: Cetirizine HCl 10 MG TAB PO SCH (09:50)
[2017-12-27] MEDS: Aspirin 325 MG TAB PO SCH (09:50)
[2017-12-27] MEDS: Pregabalin 50 MG CAP PO SCH (09:50)
[2017-12-27] MEDS ORDERED: Piperacillin/Tazobactam 4.5 GM in Sodium Chloride 0.9% 100 ML IVPB SCH (14:00)
[2017-12-27 16:35] VITALS: BP 134/84; TEMP 98
--- NOTE | 2017-12-27 18:59 | PRG ---
DATE OF SERVICE: 12/27/2017 SUBJECTIVE: The patient denies any shortness of breath or chest pain. No abdominal pain, no diarrhe a. OBJECTIVE: VITAL SIGNS: T-max 100.1 on 12/27/2017, BP 144/84, pulse 73, respirations 18, O2 sat 92%. GENERAL: Appears in no distress. HEART: S1, S2 regular rate. ABDOMEN: Soft and not distended. LUNGS: With symmetric clear breath sounds. EXTREMITIES: The wound site with the extensive area of debridement, fairly deep amputation site, has negative pressure dressing over it. LABORATORY DATA: White cell count 9.2, hemoglobin 12.2, platelets 195. Sodium 139, creatinine 0.88 with a normal liver profile. Microbiology with P. aeruginosa with a broad susceptibility profile and Enterococcus species to different strains, which is susceptible to penicillin. Pathology of the sandy gical specimen is pending to determine the margin of amputation. ASSESSMENT AND DISCUSSION: Atrial fibrillation, prior deep venous thrombosis, varicosities with a re cent venous ablation procedure, and osteomyelitis of the left first MPJ status post ray amputation. Waiting on the margin of amputation. The patient has to be transitioned to cefepime or oral ciproflo xacin plus coverage for Enterococcus with oral Augmentin or could transition him to Zosyn, which woul d cover both elements. Once there is further improvement, then transition to fully oral antimicrobia l therapy with Augmentin plus ciprofloxacin for I would say another 3-4 weeks.
== END 2017-12-27 17:52 | DRG 617 ==
LOC: 2SW 12:38 → OBSVTOIN 19:04 → T4-A 23:22
PROVIDERS: ADMIT Internal Medicine; ATTEND Internal Medicine
PROC: 0Y6Q0Z0 Detachment at Left 1st Toe, Complete, Open Approach (ICD-10-PCS; principal; 2017-12-23)
DX: E11.69 Type 2 diabetes mellitus with other specified complication (principal); M86.8X7 Other osteomyelitis, ankle and foot; L03.115 Cellulitis of right lower limb; Z86.718 Personal history of other venous thrombosis and embolism; I48.2 Chronic atrial fibrillation; G30.9 Alzheimer's disease, unspecified; F02.80 Dementia in other diseases classified elsewhere, unspecified severity, without behavioral disturbance, psychotic disturbance, mood disturbance, and anxiety; E78.5 Hyperlipidemia, unspecified; I10 Essential (primary) hypertension; E11.40 Type 2 diabetes mellitus with diabetic neuropathy, unspecified; E66.8 Other obesity; Z68.38 Body mass index [BMI] 38.0-38.9, adult; Z86.711 Personal history of pulmonary embolism; Z79.01 Long term (current) use of anticoagulants; Z96.653 Presence of artificial knee joint, bilateral
CPT/HCPCS: 36415; 36416; 80048; 80053; 85025; 85610; 85730; 87070; 87077; 87186; 87205; 88305; 88311; 90471; 90662; 93923; G0008; G8978-GP-CL; G8979-GP-CJ; J0696; J1650; J2001; J2405; J2543; J2704; J3010; J7050; S0020

== ENCOUNTER 2018-03-15 02:37 | Observation (INO) | payer MEDICARE ==
[2018-03-15 03:38] LABS: #Basophils 0.1 thou/uL (0.0-0.2); #Eosinphils 0.1 thou/uL (0.0-0.7); #Lymphocytes 0.9 thou/uL (1.20-3.40); #Monocytes 0.7 thou/uL (0.11-0.59); #Neutrophils 9.2 thou/uL (1.40-6.50); %Basophils 0.6 % (0.0-1.0); %Eosinophils 1.2 % (0.0-10.0); %Lymphocytes 8.2 % (21.0-51.0); %Monocytes 6.6 % (0.0-10.0); %Neutrophils 83.4 % (42.0-75.0); Hemoglobin 13.9 g/dL (12.0-16.0); Mean Corpuscular HGB CONC 33.2 g/dL (32.0-36.0); Mean Corpuscular Hemoglobin 30.3 pg (27.0-31.0); Mean Corpuscular Volume 91.3 fL (78.0-98.0); Mean Platelet Volume 5.4 fL (7.4-10.4); Platelet Count 192 thou/uL (130-400); RBC Distribution Width 13.5 % (11.5-14.5); Red Blood Cell (RBC) Count 4.59 mill/uL (4.20-5.40)
[2018-03-15 03:55] LABS: ALT (SGPT) 8 U/L (8-55); AST (SGOT) 19 U/L (5-34); Albumin 3.8 g/dL (3.4-4.8); Alkaline Phosphatase 127 U/L (40-150); Anion Gap 17 mmol/L (10-20); BUN (Urea Nitrogen) 13 mg/dL (9.8-20.1); Bilirubin, Total 0.8 mg/dL (0.2-1.2); Calc. Creatinine Clearance 0 mL/min (70-130); Calcium 9.8 mg/dL (7.8-10.44); Carbon Dioxide 28 mmol/L (23-31); Chloride 104 mmol/L (98-107); Estimated GFR-MDRD 63; Globulin 2.9 g/dL (2.4-3.5); Glucose 100 mg/dL (83-110); Potassium 3.2 mmol/L (3.5-5.1); Protein, Total 6.7 g/dL (6.0-8.3); Sodium 146 mmol/L (136-145)
[2018-03-15] MEDS ORDERED: Potassium Chloride 20 MEQ TAB ONE (05:20)
--- NOTE | 2018-03-15 08:39 | RAD ---
AP VIEW CHEST: Date: 03/15/18 HISTORY: Left arm pain. FINDINGS: Comparison made to previous exam from 10/04/14. AP vie of chest demonstrates previous right shoulder surgical changes. The lungs are well aerated. Th ere is some mild elevation of the right hemidiaphragm. No evidence of effusions, pneumonia, or pneumo thorax seen. IMPRESSION: Mildly elevated right hemidiaphragm. No acute intrathoracic abnormality is seen. POS: [facility]
--- NOTE | 2018-03-15 09:00 | CT ---
"PRELIMINARY REPORT/[facility]/EMERGENTY AFTER-HOURS PROCEDURE CT Head Without Contrast EXAM DATE/TIME: 03/15/2018 3:39 AM CLINICAL HISTORY: 78 years old, female; Signs and symptoms; Numbness / parasthesia; Left; Patient HX: Er 7; Left upper ext numbness TECHNIQUE: Axial computed tomography images of the head/brain without contrast. COMPARISON: No relevant prior studies available. FINDINGS: Brain: There is no evidence for acute stroke or bleed. There is parenchymal volume loss. Remote right occipi leroy infarct. There are scattered foci of decreased attenuation in the periventricular and subcortical white matter, nonspecific, but most consistent with chronic small vessel ischemic changes in patient of this age. Ventricles / cisterns / extra-axial spaces: There is no hydrocephalus, midline shift, or acute extra-axial fluid collection. There is no sulcal e ffacement. Sinuses: No findings of acute sinusitis or suspicious sinus mass. Bone: No acute fracture or displacement. Benign hyperostosis. Impression: Chronic changes without evidence for acute, intracranial pathology. Thank you for allowing us to participate in the care of your patient. MANJIT MCGRAW | Preliminary Radiology Report ASSISTANT PROGRAM MANAGER (QA) DISCREPANCY? If there is a discrepancy between the preliminary and final interpretation, please notify [facility] via ht [email or web address]. If you do not have access to our QA portal, call our QA team at [phone] CONFIDENTIALITY STATEMENT This report is intended only for the use of the referring physician, and only in accordance with law, If you received this in error, call [phone] Page 2 of 2 Dictated and Authenticated by: Alistair Lu MD 03/15/2018 4:08 AM Central Time ([place] & [place]) FINAL REPORT HEAD CT WITHOUT CONTRAST: Date: 03/15/18 COMPARISON: 10/13/15. HISTORY: Left upper extremity numbness. FINDINGS/IMPRESSION: This report is in agreement with the preliminary report given by [facility]. There is a new area of hypoden sity within the occipital lobe on the right, suggesting encephalomalacia on the basis of prior right PLOW HOLDER infarction. If there is clinical concern for acute infarction, brain MRI is suggested. Imaged par anasal sinuses and mastoid air cells appear well aerated. There is no displaced calvarial fracture. T here is periventricular hypodensity, evidence of small vessel disease. 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 Evidence of small vessel disease with no evidence for intrac ranial hemorrhage. If there is clinical concern for acute infarction, brain MRI advised. POS: [facility]"
[2018-03-15 09:33] LABS: Cardiac Risk 5.5 (Less than 4.5)
[2018-03-15 09:37] LABS: Troponin I 0.033 ng/mL (< 0.028)
[2018-03-15] MEDS ORDERED: Prevnar 13-Val Conj/PF 0.5 ML SYRINGE IM ONE (10:00)
--- NOTE | 2018-03-15 10:07 | ULT ---
CAROTID DOPPLER ULTRASOUND: Date: 03/15/18 HISTORY: TIA. COMPARISON: None. TECHNIQUE: Real-time Azar scale, color Doppler, and spectral analysis of the extracranial carotid and vertebral arteries was performed. FINDINGS: Normal peak systolic velocities within the internal carotid arteries. Antegrade flow both vertebral a rteries. Right ICA/CCA ratio is 0.81. Left ICA/CCA ratio is 0.89. IMPRESSION: No hemodynamically significant stenosis. POS: [facility]
--- NOTE | 2018-03-15 13:11 | MRI ---
MRI OF THE BRAIN WITHOUT CONTRAST: Date: 03-15-18 Comparison: 01-22-12 History: Left arm numbness and tingling. Possible TIA/Stroke. Technique: Multiplanar, multisequence MRI images were obtained of the brain without contrast. FINDINGS: The diffusion weighted imaging demonstrates no evidence for acute infarction. There is an old infarction of the RECTIFICATION PRINTER territory on the right. In this region there is a linear bloomi ng artifact consistent with prior hemorrhage in this region. No MR evidence of acute hemorrhage is no alva. Imaged paranasal sinuses and mastoid air cells well aerated. Arterial flow voids at axial level of skull base appear patent on the T2 weighted imaging. Imaged paranasal sinuses/mastoid air cells well aerated. There is multifocal, periventricular, deep and subcortical white matter T2 and FLAIR hyperintensity, evidence of significant small vessel disease. 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 No MR evidence for acute hemorrhage or acute infar ction. Small vessel disease. POS: [facility]
[2018-03-15 13:17] LABS: Troponin I 0.029 ng/mL (< 0.028)
[2018-03-15] MEDS ORDERED: Acetaminophen 500 MG TAB PO PRN (13:41)
[2018-03-15] MEDS ORDERED: Nitroglycerin 2% Ointment 1 INCH/1 GM Packet TOP SCH (13:45)
[2018-03-15] MEDS ORDERED: Potassium Chloride 20 MEQ TAB PO SCH (15:45)
--- NOTE | 2018-03-15 18:06 | HP ---
PRIMARY CARE PHYSICIAN: Dr. Suero. CHIEF COMPLAINT: Left arm pain and numbness starting around midnight. HISTORY OF PRESENT ILLNESS: Ms. Davis is a very pleasant 78-year-old female, who presented to the emergency room [facility] on 03/15/2018 for evaluation of left arm pain accompanied with numbness in her hands. The patient has a history of atrial fibrillation, rate controlled, dementia, neuropathy, and GERD. The patient reports that she was asleep and woke up to her left arm hurting and numbness. Reports that when she was in the ambulance, it improved. On exam, this morning, she denied any current pain or numbness or tingling. 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 Evidence of small-vessel disease. No evidence of intracranial hemorrhage. Based on history and symptoms, the patient was admitted to the stroke unit for further management. PAST MEDICAL HISTORY: As above. Also history of osteomyelitis in December with amputation of the left great toe, history of DVT in left leg in 2011, chronic pain and peripheral neuropathy, GERD, Alzheimer's, history of herpes simplex-1, spondylosis of the LS spine, venous insufficiency of lower extremities. PAST SURGICAL HISTORY: Amputation of left great toe in December of 2017, placement of filter device in July of 2013 after she developed DVT, resection of left fifth metatarsal in 2011, orthopedic surgery on her right shoulder and rotator cuff repair in 1998, required repeat surgery in 2002, had stomach stapling in 1981 and removal of the staple in 1984, total abdominal hysterectomy, hemorrhoidectomy, cholecystectomy. She had a heart catheterization in 2013. SOCIAL HISTORY: The patient lives at home with her . She has a family that is close by and assists her with her ADLs. HOME MEDICATIONS: Include; 1. Acyclovir 400 mg p.o. b.i.d. as needed for herpes outbreaks. 2. Aspirin 325 mg p.o. daily. 3. Zyrtec 10 mg p.o. daily. 4. Vitamin D 4000 units p.o. daily. 5. Diltiazem 120 mg ER daily. 6. Aricept 5 mg p.o. daily. 7. Fluconazole 2 sprays each nostril daily. 8. Melatonin 3 mg p.o. at bedtime. 9. Namenda 5 mg p.o. daily. 10. Prilosec 20 mg p.o. daily. 11. Lyrica 500 mg p.o. b.i.d. 12. Ultram 50 mg p.o. at bedtime. 13. Tylenol 650 mg p.o. q.6 hours as needed for pain. 14. Probiotic 250 mg p.o. daily. ALLERGIES: CODEINE AND MORPHINE. REVIEW OF SYSTEMS: CONSTITUTIONAL: Denies chills or fever. HEENT: Eyes, denies eye pain or vision changes. ENT; denies sore throat, rhinorrhea, or voice changes. CARDIOVASCULAR: Denies chest pain or palpitations. RESPIRATORY: Denies cough or shortness of breath. GI: Denies abdominal pain, constipation, or diarrhea. : Denies dysuria or increased frequency. MUSCULOSKELETAL: Currently denies back pain. Denies fall. Denies injury. Reports that she had some left arm pain and numbness, which is resolved. SKIN: Denies rashes or skin changes. NEUROLOGIC: Denies headache. Denies mental status changes. Denies sensory changes. Currently, reports that she had some numbness in her left hand when she reported to the ER earlier today. PHYSICAL EXAMINATION: VITAL SIGNS: Blood pressure is 175/65, pulse is 59, respirations 18, temperature is 97.8, pulse ox is 98% on room air. CONSTITUTIONAL: The patient is alert and oriented to person, place, and time. Appears nontoxic. HEENT: Head is atraumatic and normocephalic. Eyes, pupils are equally round and reactive to light. Extraocular muscles are intact. ENT, mouth exam is normal. Mucous membranes are moist. NECK: Normal range of motion. Trachea is midline. RESPIRATORY AND CHEST: Regular heart rate and rhythm. Heart sounds are normal. ABDOMEN: Nontender. Bowel sounds are heard. BACK: Normal inspection. Normal range of motion. EXTREMITIES: Upper extremities, inspection is normal, normal range of motion. Motor strength is normal bilaterally. Sensation is intact bilaterally. Radial pulse is equal bilaterally. Lower extremity, normal range of motion. Normal motor strength. Sensation intact. Pedal pulses are normal bilaterally. NEUROLOGIC: The patient is oriented to person, place, and time. Gait is not assessed. Cranial nerves 2 through 12 are intact. No focal motor deficits. No focal sensory deficits. SKIN: Warm, dry, and normal in color. PSYCH: Normal affect. IMAGING DATA: EKG in the emergency room shows atrial fibrillation with controlled ventricular rate, beats per minute 65, infrequent premature ventricular complexes, T-waves are normal, axis is left. LABORATORY DATA: White blood cell count 11, platelets 192. Sodium 146, potassium 3.2, chloride 104, carbon dioxide 28, gap is 17, BUN is 13, creatinine 0.87, estimated GFR 63, AST is 19, ALT is 8, alkaline phosphatase is 127. Troponin 0.015. Albumin 3.8, globulin 2.9, cholesterol 214, triglycerides 111, LDL 153, HDL 39. TSH is 2.27. ASSESSMENT AND PLAN: 1. Left arm pain with numbness, which is currently resolved. Only one troponin was ordered in the ER. We will repeat x2. We will order an MRI of the brain and echocardiogram. 2. Hypertension. We will continue home medications. 3. Dementia. We will continue home medications. 4. We will continue aspirin 325 mg. 5. We will provide DVT and GI prophylaxis as needed. 6. Hospital course is dependent on clinical findings. Job ID: [id number]
--- NOTE | 2018-03-15 20:39 | PDOC.EVN ---
Event Note - Event Note Event Note: Reviewed with Jennifer. Evaluated patient. Had possible TIA symptoms with some numbness in extremities. Workup revealed equivocal trops, but not in a physiologic rise. Echo pending. She complains of some left arm pain, but cannot give much detail beyond the fact that it is the upper arm. Has some dementia, but appears to be at baseline. Heart regular. Lungs clear. No evidence of neuro deficits other than the dementia. Evidence of TIA with workup pending. Negative MRI for acute findings. Cardiology consult pending. May be cervical radiculopathy.
--- NOTE | 2018-03-16 01:54 | CON ---
DATE OF CONSULTATION: HISTORY OF PRESENT ILLNESS: Sylvie Davis is a 78-year-old white female, who has been a patient of Dr. Jansen for many years. In December 2011, she was hospitalized with acute onset shortness of breath and diaphoresis after she had been on long car trip in [place], that lasted 3 hours. She also had a history of DVT x2 in the past. CT angiogram showed extensive pulmonary emboli. She also had mildly elevated troponin. She was placed on Coumadin and Lovenox. Other evaluations in the past include cardiac catheterization in December 2013 for exertional dyspnea on equivocal nuclear scan. This revealed normal coronary arteries with ejection fraction of 55% to 60%. She underwent placement of an IVC filter in July 2014 due to the need for surgery and to interrupt anticoagulation. Also, discussion has been held with her in regard to Watchman procedure; however , she does not wish to pursue that. Currently, she is not anticoagulated. She now is admitted with pain in her left arm from her elbow to her wrist associated with some numbness that she woke with. She had a brain CT which showed possible new chronic right posterior cerebral artery infarction and evidence of small vessel disease. There was no intracranial hemorrhage. She has had mildly elevated troponin I. PAST MEDICAL HISTORY: Hypertension, diabetes, hyperlipidemia, DVT, pulmonary emboli, chronic pain, peripheral neuropathy, GERD, Alzheimer disease, venous insufficiency, osteomyelitis in December 2017 with amputation of left great toe. OPERATIONS: Amputation if left great toe in December 2017 for osteomyelitis, IVC filter placed in July 2014, resection of left 5th metatarsal in 2011, right shoulder and right rotator cuff repair with repeat surgery 4 years later, stomach stapling, removal of silas in 1984, total abdominal hysterectomy, hemorrhoidectomy, cholecystectomy. SOCIAL HISTORY: She does not smoke or drink. MEDICATIONS: 1. Acyclovir 400 b.i.d. p.r.n. 2. Aspirin 325 daily. 3. Zyrtec 10 daily. 4. Diltiazem 120 daily. 5. Aricept 5 mg daily. 6. Fluconazole each nostril 2 sprays daily. 7. Melatonin 3 mg at bedtime. 8. Namenda 5 mg daily. 9. Lyrica 500 mg b.i.d. 10. Prilosec 20 daily. 11. Probiotic 250 daily. 12. Ultram 50 mg p.o. at bedtime. ALLERGIES: 1. CODEINE. 2. MORPHINE. REVIEW OF SYSTEMS: A 12-point review of systems unremarkable. Specifically, she denies any chest discomfort or shortness of breath. PHYSICAL EXAMINATION: VITAL SIGNS: Blood pressure 164/73, pulse of 63. HEENT: PERRL. NECK: Supple. CHEST: Clear. CARDIAC: S1 and S2 normal without any S3, S4, or murmurs. ABDOMEN: Normal bowel sounds without tenderness or organomegaly. Abdomen is obese. EXTREMITIES: Revealed no clubbing, cyanosis, or edema. Left arm is warm without any skin discoloration. There are normal pulses. NEUROLOGIC: Grossly intact. SKIN: Warm and dry. LABORATORY DATA: EKG revealed atrial fibrillation with left axis deviation, poor R-wave progression. White count 11,000, hemoglobin 13.9, hematocrit 41.9, platelets 192,000. Sodium 146, potassium 3.2, chloride 104, carbon dioxide 28, BUN 13, creatinine 0.87. Cholesterol 214, triglycerides 111, HDL 39, LDL 153. Troponin I 0.033. TSH is normal. Echocardiogram revealed mild concentric left ventricular hypertrophy with ejection fraction of 55% to 60%, mild left atrial enlargement, moderate mitral regurgitation, aortic valve sclerosis, moderate aortic insufficiency, mild tricuspid regurgitation, and moderate pulmonic insufficiency. IMPRESSION: 1. Left forearm pain, which has resolved and there is no palpable tenderness at this time. There was a question of stroke on CT. Brain MRI shows old hemorrhagic infarction of the right posterior cerebral artery. No acute hemorrhage or acute infarction. There is a small vessel disease. 2. Very mildly elevated troponin I, probably due to demand ischemia. She also had elevated troponin I in 2011 with her pulmonary embolism. 3. Chronic atrial fibrillation, not anticoagulated with a history of previous intracranial bleed. 4. History of deep venous thrombosis and pulmonary embolism, status post IVC filter placement in July 2014. 5. Normal coronary arteries on catheterization in 2013. 6. Hypertension. 7. Hypercholesterolemia, not on a statin at this time. 8. Alzheimer's disease. PLAN: Certainly, concern needs to give the possibility of embolic phenomenon to her left arm. However, her arm is warm with good capillary refill, and I doubt this is the case. I imagine this is some neurological problem that she has had. I do not feel that the troponin I needs to be further evaluated with normal coronary arteries on catheterization in 2013. She also did not have any chest discomfort or any other associated cardiac symptoms. Job ID: [id number] MTDD
[2018-03-16 05:24] LABS: #Basophils 0.1 thou/uL (0.0-0.2); #Eosinphils 0.2 thou/uL (0.0-0.7); #Lymphocytes 1.4 thou/uL (1.20-3.40); #Monocytes 0.8 thou/uL (0.11-0.59); #Neutrophils 5.8 thou/uL (1.40-6.50); %Basophils 1.1 % (0.0-1.0); %Eosinophils 2.6 % (0.0-10.0); %Lymphocytes 17.3 % (21.0-51.0); %Monocytes 8.9 % (0.0-10.0); Hemoglobin 13.2 g/dL (12.0-16.0); Mean Corpuscular HGB CONC 33.2 g/dL (32.0-36.0); Mean Corpuscular Hemoglobin 30.1 pg (27.0-31.0); Mean Corpuscular Volume 90.9 fL (78.0-98.0); Mean Platelet Volume 8.6 fL (7.4-10.4); Platelet Count 192 thou/uL (130-400); RBC Distribution Width 13.4 % (11.5-14.5); Red Blood Cell (RBC) Count 4.39 mill/uL (4.20-5.40); White Blood Cell (WBC) Count 8.3 thou/uL (4.8-10.8)
[2018-03-16 05:43] LABS: ALT (SGPT) 9 U/L (8-55); AST (SGOT) 18 U/L (5-34); Albumin 3.4 g/dL (3.4-4.8); Alkaline Phosphatase 108 U/L (40-150); Anion Gap 15 mmol/L (10-20); BUN (Urea Nitrogen) 13 mg/dL (9.8-20.1); Bilirubin, Total 0.9 mg/dL (0.2-1.2); Calc. Creatinine Clearance 95 mL/min (70-130); Carbon Dioxide 25 mmol/L (23-31); Chloride 107 mmol/L (98-107); Estimated GFR-MDRD 66; Globulin 2.7 g/dL (2.4-3.5); Glucose 110 mg/dL (83-110); Potassium 3.7 mmol/L (3.5-5.1); Protein, Total 6.1 g/dL (6.0-8.3); Sodium 143 mmol/L (136-145)
[2018-03-16 06:12] LABS: Bilirubin Negative (Negative); Blood, Urine Negative (Negative); Glucose, Urine (Dipstick) Negative (Negative); Leukocyte Trace (Negative); Nitrite Positive (Negative); Protein, Urine (Dipstick) Negative (Neg-Trace); Specific Gravity, Urine 1.025 (1.005-1.030); Urobilinogen 0.2 mg/dL (0.2-1.0); pH, Urine 6.5 (5.0-9.0)
[2018-03-16 06:15] LABS: Clarity Clear (Clear)
[2018-03-16 06:24] LABS: RBC/HPF 0-3 HPF (0-3)
[2018-03-16 06:25] LABS: WBC/HPF 0-3 HPF (0-3)
[2018-03-16 06:26] LABS: Bacteria/HPF 4+ HPF (None Seen); Renal Epithelial None Seen HPF (0-3); Squamous Epithelial 0-3 HPF (0-3); Transitional Epithelial NONE SEEN HPF (0-3)
[2018-03-16 06:27] LABS: Hyaline Casts/LPF NONE SEEN LPF (0-3 Hyaline)
[2018-03-16 06:28] LABS: Crystals/HPF 1+ CA OXALATE HPF (Negative)
[2018-03-16] MEDS ORDERED: Potassium Chloride 20 MEQ TAB PO SCH (08:00)
[2018-03-16] MEDS ORDERED: hydrALAZINE 20 MG/ML VIAL SLOW IVP PRN (08:43)
[2018-03-16] MEDS ORDERED: Acyclovir 400 mg Tablet PO SCH (09:00)
[2018-03-16] MEDS ORDERED: Donepezil HCl 5 MG TAB PO SCH (09:00)
[2018-03-16] MEDS ORDERED: Pregabalin 50 MG CAP PO SCH (09:00)
[2018-03-16] MEDS ORDERED: Aspirin 325 MG TAB PO SCH (09:00)
[2018-03-16] MEDS: cefTRIAXone\\ROCEPHIN 1 GM in Sodium Chloride 0.9% 100 ML IVPB SCH ×2 (10:22→12:46)
[2018-03-16 11:53] VITALS: TEMP 97.9
[2018-03-16 12:08] VITALS: BP 161/77
[2018-03-16] MEDS ORDERED: Cefdinir 300 MG CAP PO SCH (21:00)
[2018-03-16] MEDS ORDERED: Atorvastatin Calcium 40 MG TAB PO SCH (21:00)
[2018-03-16] MEDS ORDERED: traMADol HCl 50 MG TAB PO SCH (21:00)
--- NOTE | 2018-03-17 02:53 | DIS ---
DATE OF ADMISSION: 03/15/2018 DATE OF DISCHARGE: 03/16/2018 PRIMARY CARE PHYSICIAN: Dr. Suero. CONSULTANTS: Dr. Palacios, Cardiology. PROCEDURES: 1. The patient had a brain CT. 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 Brain MRI is suggested. The patient had a chest x-ray, which showed a mildly elevated right hemidiaphragm. No acute abnormality is seen. 2. The patient had a brain MRI that showed an old hemorrhagic infarction of the right IMPORT EXPORT AGENT territory. No evidence for acute hemorrhage or acute infarction, small-vessel disease. 3. Carotid Doppler study showed no hemodynamically significant stenosis. 4. Echocardiogram showed mild concentric left ventricular hypertrophy. Ejection fraction visually estimated at 55%-60%. Left atrium is mildly dilated. Moderate mitral regurgitation is present. Aortic valve is sclerotic. Moderate aortic regurgitation. Mild tricuspid regurgitation. Moderate pulmonic regurgitation is present. DISCHARGE DIAGNOSES: 1. Left arm pain, resolved. 2. Possible transient ischemic attack. 3. Hypertension. 4. Dementia. 5. Herpes simplex I. 6. Peripheral neuropathy. REVIEW OF SYSTEMS: The patient was examined on the day of discharge and reports that she feels better. Denies any current arm pain. Reports that she generally feels better. All other systems were reviewed and are negative unless mentioned in the hospital course. PHYSICAL EXAMINATION: VITAL SIGNS: Temperature 98.2, pulse 69, respirations 16, blood pressure 191/77, pulse ox is 92% on room air. CONSTITUTIONAL: The patient appears nontoxic, appears pain free, is alert and oriented to person, place, and time. HEENT: Head is atraumatic and normocephalic. Eyes; eyelids are normal to inspection. Pupils are equally round and reactive to light. ENT; mouth exam is normal. Mucous membranes are moist. NECK: Trachea is midline. Normal range of motion. No tenderness on palpation. RESPIRATORY/CHEST: Breath sounds are clear. No findings of respiratory distress. CARDIOVASCULAR: Regular heart rate and rhythm. Heart sounds are normal. ABDOMEN: Nontender. Bowel sounds are heard. BACK: Normal inspection. Normal range of motion. EXTREMITIES: Upper extremities, normal range of motion, normal inspection. Sensation is intact. Motor strength is normal. Radial pulses are equal bilaterally. Lower extremity, normal inspection. Normal range of motion. Sensation intact. Pedal pulses are equal bilaterally. NEURO: The patient is oriented to person, place, and time. Speech is normal. Cranial nerves 2 through 12 are intact. No focal sensory or motor deficits are noted. SKIN: Warm, dry, and normal in color. PSYCH: Normal affect. HOSPITAL COURSE: Ms. Davis is a very pleasant 78-year-old female who presented to the emergency room on date of admission complaining of left arm pain and numbness, which started around midnight. She denied any chest pain, but reports the pain is sharp in nature, shooting and reports that her hand had decreased sensation. Reports that on her way to the emergency room that pain and numbness started to improve. The patient underwent a TIA workup on the stroke unit, findings as above. The patient had a slightly bumped troponin x2 out and due to symptoms and slightly elevated troponin, we asked Cardiology to consult. Dr. Palacios did not believe the pain was cardiac in nature and we are grateful for his input. The patient's vital signs and labs have remained stable. The patient did have a nitrite positive UA and patient was started on Omnicef, which she will continue as an outpatient. Case was discussed with Dr. Guaman and he agreed to the plan. Patient was discharged home. DISCHARGE MEDICATIONS: Patient was restarted on home medications: 1. Acyclovir 400 mg p.o. b.i.d. 2. Aspirin 325 p.o. daily. 3. Bismuth 30 mL p.o. t.i.d. as needed. 4. Vitamin D 4000 units p.o. daily. 5. Diltiazem 120 mg p.o. daily. 6. Aricept 5 mg p.o. daily. 7. Namenda 5 mg p.o. daily. 8. Prednisone 20 mg p.o. at night. 9. Lyrica 50 mg p.o. b.i.d. 10. Ultram 50 mg p.o. at night. 11. Lipitor 40 mg p.o. daily, which was added on this visit and as well as cefdinir 300 mg p.o. b.i.d. x7 days. ALLERGIES: 1. CODEINE. 2. MORPHINE. PATIENT CONDITION: Stable. DISPOSITION: The patient may be discharged home. REFERRAL: Patient should follow up with within one week. Urine culture was sent off and will need to be reviewed by Dr. Suero. Job ID: [id number]
== END 2018-03-16 14:01 | disposition home health service (06) ==
LOC: ERS 02:37 → 2SE 04:49
PROVIDERS: ADMIT Internal Medicine Infectious Disease; ATTEND Internal Medicine Infectious Disease
DX: M79.602 Pain in left arm (principal); I48.2 Chronic atrial fibrillation; I10 Essential (primary) hypertension; B00.9 Herpesviral infection, unspecified; E11.42 Type 2 diabetes mellitus with diabetic polyneuropathy; E78.00 Pure hypercholesterolemia, unspecified; G30.9 Alzheimer's disease, unspecified; F02.80 Dementia in other diseases classified elsewhere, unspecified severity, without behavioral disturbance, psychotic disturbance, mood disturbance, and anxiety; K21.9 Gastro-esophageal reflux disease without esophagitis; Z86.711 Personal history of pulmonary embolism; Z86.718 Personal history of other venous thrombosis and embolism; Z90.710 Acquired absence of both cervix and uterus; Z89.412 Acquired absence of left great toe; Z90.49 Acquired absence of other specified parts of digestive tract; Z88.5 Allergy status to narcotic agent; Z79.82 Long term (current) use of aspirin; Z79.2 Long term (current) use of antibiotics; Z79.891 Long term (current) use of opiate analgesic; Z79.899 Other long term (current) drug therapy; Z98.890 Other specified postprocedural states
CPT/HCPCS: 70450; 70551; 71045; 80053; 80061; 84484 ×2; 85025; 87077; 87086; 87186; 93005; 93306; 93880; 94760; 97139; 99285; G0378 ×2; 36415; 81003; 81015; 84443; J0696; J7050

== ENCOUNTER 2018-05-19 12:47 | Day surgery (SDC) | payer MEDICARE ==
[~2018-05-19 12:47] MED LIST: Heparin 1,000 UNITS/ML VIAL ONE; MEROPENEM 1 GM/50 ML 1 GM in Premix Bag 1 BAG IVPB SCH
--- NOTE | 2018-05-19 15:21 | SPC ---
ULTRASOUND GUIDED LEFT UPPER EXTREMITY PICC LINE PLACEMENT: DATE: 05/19/2018. HISTORY: Osteomyelitis distal bilateral lower extremities. The patient needs long-term IV antibiotics. TECHNIQUE: After informed consent was obtained. The patient was placed on the angiography table in the supine po sition. The left upper extremity was meticulously prepped and draped in the usual sterile fashion. An appropriate access site was determined with ultrasound guidance. The skin and subcutaneous tissues were infiltrated with buffered 1% Lidocaine for local anesthesia at the intended puncture site. The left basilic vein was accessed utilizing micropuncture technique an d concurrent real-time ultrasound guidance. A 5 [place] peelaway sheath was placed. The catheter was measured and cut to the appropriate length. The catheter was placed over the guidewire with the tip positioned overlying the distal SVC. Guidewire and peelaway sheath were removed. The catheter was accessed and aspirated/flushed easily. The catheter was secured in place utilizing a dry sterile priya ssing. The patient tolerated the procedure well and without immediate complication. FLUOROSCOPY: Total fluoroscopy time is 0 minutes with a total dose of 640 mGy*^cm2. FINDINGS: Technically successful placement of a single-lumen 5 [place] 43 cm PICC line via the left basilic vein . The tip of the catheter overlies the distal SVC. IMPRESSION: Technically successful left upper extremity PICC line placement. POS: GAIL
== END 2018-05-19 15:49 | disposition home or self-care (01) ==
LOC: SPEC 12:47 → ONC/OP 15:49
PROVIDERS: ATTEND Internal Medicine Infectious Disease
PROC: 02HV33Z Insertion of Infusion Device into Superior Vena Cava, Percutaneous Approach (ICD-10-PCS; principal; 2018-05-19)
DX: M86.271 Subacute osteomyelitis, right ankle and foot (principal); M86.272 Subacute osteomyelitis, left ankle and foot; Z79.2 Long term (current) use of antibiotics; Z88.5 Allergy status to narcotic agent
CPT/HCPCS: 36569; 96365; J1644; J2185

== ENCOUNTER 2018-10-06 15:18 | Inpatient (IN) | payer MEDICARE ==
[2018-10-06] MEDS ORDERED: Ondansetron ODT 4 MG TAB SL PRN (18:55)
[2018-10-06] MEDS ORDERED: Ondansetron PF 4 MG/2 ML Vial IVP PRN ×2 (18:55→19:32)
[2018-10-06] MEDS ORDERED: Acetaminophen 325 MG TAB PO PRN (19:32)
[2018-10-06] MEDS ORDERED: Guaifenesin DM 100-10/5 ML UDCUP PO PRN (19:32)
[2018-10-06] MEDS ORDERED: Bismuth Subs 17.5mg/mL Susp 120 ML BOT PO PRN (19:32)
[2018-10-06] MEDS ORDERED: Bisacodyl 10 MG SUPP PR PRN (19:32)
[2018-10-06 20:06] VITALS: BMI 37.7
--- NOTE | 2018-10-06 20:25 | HP ---
REASON FOR ADMISSION: Right foot osteomyelitis. HISTORY OF PRESENTING ILLNESS: The patient gives history of her home health nurse, who is also managing her wound care told her that her right foot wound was not looking good. The foot was swollen and was red. She called an ambulance to send her to [facility]. From there, the patient was transferred here for higher level of care. The patient stays with her . She ambulates with a walker. The patient was supposed to see Dr. Baum in followup unclear of the exact date. The patient has had prior amputation of left big toe with prior ulcerations as well in the legs. She has known likely venous stasis in both lower extremities. 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 CURRENT MEDICATIONS: The patient is on: 1. Acyclovir 400 mg twice daily. 2. Lyrica 50 mg twice daily. 3. Aspirin 325 mg daily. 4. Zyrtec 10 mg p.r.n. 5. Vitamin D 4000 units p.o. daily. 6. Cardizem CD 120 mg daily. 7. Aricept 5 mg daily. 8. Namenda 5 mg daily. 9. Melatonin 3 mg p.o. at bedtime. 10. Lipitor 20 mg p.o. at bedtime. 11. Prilosec 20 mg p.o. daily. 12. Ultram 50 mg p.o. at bedtime. 13. Tylenol p.r.n. ALLERGIES: ALLERGIC TO CODEINE AND MORPHINE. PERSONAL HISTORY: Does not abuse alcohol or drugs. No history of smoking. Lives with her . FAMILY HISTORY: Mother in her late 60s from unknown causes. Father at the age of 74 years from natural causes as far as she knows. CODE STATUS: Do not attempt to resuscitate. I have discussed this with the patient at bedside in room 4 in the ER. Power of prosecuting attorney is her . REVIEW OF SYSTEMS: CONSTITUTIONAL: Negative for weight loss or gain, ability to conduct usual activities. SKIN: Negative for rash, itching. EYES: Negative for double vision, pain. ENT/MOUTH: Negative for nose bleeding, neck stiffness, pain, tenderness. CARDIOVASCULAR: Negative for palpitations, dyspnea on exertion, orthopnea. RESPIRATORY: Negative for shortness of breath, wheezing, cough, hemoptysis, fever or night sweats. GASTROINTESTINAL: Negative for poor appetite, abdominal pain, heartburn, nausea , vomiting, constipation, or diarrhea. GENITOURINARY: Negative for urgency, frequency, dysuria, nocturia. MUSCULOSKELETAL: Negative for pain, swelling. NEUROLOGIC/PSYCHIATRIC: Negative for anxiety, depression. ALLERGY/IMMUNOLOGIC: Negative for skin rash, bleeding tendency. PHYSICAL EXAMINATION: GENERAL: The patient is a 78-year-old female, who is currently not in any acute distress. VITAL SIGNS: Blood pressure 170/96, pulse 58 per minute, respiratory rate 18 per minute, temperature 98 degrees Fahrenheit, and saturating 97% on room air. NECK: Supple. No elevated JVD. HEENT: Eyes; extraocular muscles intact. Pupils reacting to light. Oral cavity, mucous membranes are moist. No exudates or congestion. CARDIOVASCULAR: S1 and S2 heard. Regular rhythm. RESPIRATORY SYSTEM: Air entry 1+ bilateral. No rales or rhonchi. ABDOMEN: Soft. Bowel sounds heard. No tenderness, rigidity, or guarding. EXTREMITIES: The patient has ulcer with a sinus tract measuring 0.5 x 0.5 cm at the outer edge on the right lateral fifth metatarsal area. She also has a left medial foot area sinus tract with ulceration. Right forefoot is edematous and erythematous. No tenderness to touch. The patient has left big toe amputation in the past, likely ray amputation. Peripheral pulses are 1+ bilateral. No ischemic ulcerations or gangrene. CENTRAL NERVOUS SYSTEM: No gross focal deficits noted. The patient is alert, awake, and responds well to questions. The patient takes a bit to recall events , but otherwise responds well. PSYCHIATRIC SYSTEM: No obvious hallucinations or delusions. LABORATORY DATA: Right foot three-view x-ray done shows osteopenia and degenerative changes of the foot. Erosive changes involving the lateral aspect of the distal fifth metatarsal could represent changes of osteomyelitis. Diffuse soft tissue swelling in the mid foot and forefoot is seen. White count of 9.4, hemoglobin and hematocrit of 12 and 39, platelet count 155, MCV is 89 with 79% neutrophils. Electrolytes stable. BUN 20, creatinine 1.0, calcium 9.1, serum glucose 107, and CRP 2.1. CLINICAL IMPRESSION AND PLAN: The patient will be admitted to medical floor for right foot osteomyelitis with right foot cellulitis. Deep wound cultures will be obtained. She will be placed on vancomycin and Zosyn. We will continue her aspirin, Lipitor, Cardizem CD, Aricept, Namenda, Ultram, and Lyrica as before. I have spoken to Dr. Hernandez, who will see her on Tuesday. Further imaging studies will be obtained per Dr. Hernandez's advice. We will obtain PT/OT evaluations to make her ambulate. The patient to continue her venous compression device that she uses at home. If not, we will place a PAUL hose on her to reduce swelling. Job ID: [id number] MTDD
[2018-10-06] MEDS: Pregabalin 50 MG CAP PO SCH (20:48)
[2018-10-06] MEDS: traMADol HCl 50 MG TAB PO SCH (20:49)
[2018-10-06] MEDS: Piperacillin/Tazobactam 3.375 GM in Sodium Chloride 0.9% 100 ML IVPB SCH (20:49)
[2018-10-06] MEDS: Senokot S 8.6-50 MG TAB PO SCH (20:50)
[2018-10-06] MEDS ORDERED: Non-Formulary Item 1 EACH (Omeprazole [Omeprazole] 20 MG) PO SCH (21:00)
[2018-10-06] MEDS: Vancomycin HCl 1.25 GM in Sodium Chloride 0.9% 250 ML 250 ML IVPB SCH (21:02)
[2018-10-07] MEDS ORDERED: Vancomycin HCl 1 GM in Premix Bag 1 BAG IVPB SCH (01:00)
[2018-10-07] MEDS: Piperacillin/Tazobactam 3.375 GM in Sodium Chloride 0.9% 100 ML IVPB SCH ×3 (04:44→20:45)
[2018-10-07 06:41] LABS: #Eosinphils 0.3 thou/uL (0.0-0.7); #Lymphocytes 1.1 thou/uL (1.20-3.40); #Monocytes 0.7 thou/uL (0.11-0.59); #Neutrophils 5.5 thou/uL (1.40-6.50); %Basophils 0.6 % (0.0-1.0); %Eosinophils 4.5 % (0.0-10.0); %Lymphocytes 14.1 % (21.0-51.0); %Monocytes 9.1 % (0.0-10.0); %Neutrophils 71.7 % (42.0-75.0); Hemoglobin 12.7 g/dL (12.0-16.0); Mean Corpuscular HGB CONC 32.2 g/dL (32.0-36.0); Mean Platelet Volume 9.1 fL (7.4-10.4); Platelet Count 147 thou/uL (130-400); RBC Distribution Width 15.5 % (11.5-14.5); Red Blood Cell (RBC) Count 4.38 mill/uL (4.20-5.40); White Blood Cell (WBC) Count 7.7 thou/uL (4.8-10.8)
[2018-10-07 07:01] LABS: Anion Gap 13 mmol/L (10-20); BUN (Urea Nitrogen) 18 mg/dL (9.8-20.1); Calc. Creatinine Clearance 90 mL/min (70-130); Calcium 9.3 mg/dL (7.8-10.44); Carbon Dioxide 23 mmol/L (23-31); Chloride 110 mmol/L (98-107); Estimated GFR-MDRD 58; Glucose 93 mg/dL (83-110); Potassium 4.1 mmol/L (3.5-5.1); Sodium 142 mmol/L (136-145)
[2018-10-07] MEDS: Senokot S 8.6-50 MG TAB PO SCH ×2 (09:26→20:44)
[2018-10-07] MEDS: Aspirin 325 MG TAB PO SCH (09:26)
[2018-10-07] MEDS: Donepezil HCl 5 MG TAB PO SCH (09:27)
[2018-10-07] MEDS: Atorvastatin Calcium 40 MG TAB PO SCH (09:27)
[2018-10-07] MEDS: Pregabalin 50 MG CAP PO SCH ×2 (09:27→20:43)
[2018-10-07] MEDS: Vancomycin HCl 1.25 GM in Sodium Chloride 0.9% 250 ML 250 ML IVPB SCH (09:28)
[2018-10-07] MEDS: Enoxaparin Sodium 40 MG/0.4 ML SYRINGE SC SCH (09:28)
--- NOTE | 2018-10-07 12:57 | PDOC.HOSPP ---
- Subjective Subjective: awake, no pain in her foot had good sleep, ate her breakfast no sob or chest pain - Objective Vital Signs & Weight: Vital Signs (12 hours) Temp Pulse Resp BP Pulse Ox 10/07/18 11:45 97.8 F 72 20 159/71 H 97 10/07/18 09:26 72 10/07/18 08:00 97 10/07/18 07:48 97.8 F 72 20 153/82 H 97 10/07/18 04:00 98.3 F 68 18 150/83 H 95 Weight Weight 255 lb 4.8 oz Result Diagrams: 10/07/18 05:48 10/07/18 05:48 ROS - Review of Systems All systems: All other ROS were reviewed and found negative. - Medication Medications: Active Medications Generic Name Dose Route Start Last Admin Trade Name Freq PRN Reason Stop Dose Admin Aspirin 325 mg 10/07/18 09:00 10/07/18 09:26 Aspirin PO 325 mg DAILY PRISCILLA Administration Atorvastatin Calcium 40 mg 10/07/18 09:00 10/07/18 09:27 Lipitor PO 40 mg DAILY PRISCILLA Administration Diltiazem HCl 120 mg 10/07/18 09:00 10/07/18 09:26 Cardizem Cd PO 120 mg DAILY PRISCILLA Administration Donepezil HCl 5 mg 10/07/18 09:00 10/07/18 09:27 Aricept PO 5 mg DAILY PRISCILLA Administration Enoxaparin Sodium 40 mg 10/07/18 09:00 10/07/18 09:28 Lovenox SC 40 mg 0900 PRISCILLA Administration Piperacillin Sod/Tazobactam 100 mls @ 200 mls/hr 10/06/18 22:00 10/07/18 04: 44 Sod 3.375 gm/ Sodium Chloride IVPB 100 mls Q8HR PRISCILLA Administration Vancomycin HCl 1.25 gm/ Sodium 250 mls @ 166.667 mls/hr 10/06/18 21:00 09:28 Chloride IVPB 250 mls Q12HR PRISCILLA Administration Memantine 5 mg 10/07/18 09:00 10/07/18 09:26 Namenda PO 5 mg DAILY PRISCILLA Administration Pantoprazole Sodium 40 mg 10/06/18 21:00 10/06/18 20:48 Protonix PO 40 mg HS PRISCILLA Administration Pregabalin 50 mg 10/06/18 21:00 10/07/18 09:27 Lyrica PO 50 mg BID PRISCILLA Administration Senna/Docusate Sodium 2 tab 10/06/18 21:00 10/07/18 09:26 Senokot S PO 2 tab BID PRISCILLA Administration Sodium Chloride 10 ml 10/06/18 21:00 10/07/18 09:28 Flush - Normal Saline IVF 10 ml Q12HR PRISCILLA Administration Tramadol HCl 50 mg 10/06/18 21:00 10/06/18 20:49 Ultram PO 50 mg HS PRISCILLA Administration - Exam NAD, awake alert Eye: PERRL, anicteric sclera ENT: no oropharyngeal lesions, moist mucosa Neck: supple, no JVD Heart: RRR, no murmur Respiratory: no wheezes, no rales, rhonchi Gastrointestinal: soft, non-tender, normal bowel sounds Extremities: 1+ LE edema (right foot erythema and edema is better) Neurological: CN's grossly intact, no focal deficits Psychiatric: normal affect, normal behavior Hosp A/P (1) Osteomyelitis Code(s): M86.9 - OSTEOMYELITIS, UNSPECIFIED Status: Acute Qualifiers: Osteomyelitis location: foot Laterality: right (2) H/O: CVA (cerebrovascular accident) Code(s): Z86.73 - PRSNL HX OF TIA (TIA), AND CEREB INFRC W/O RESID DEFICITS Status: Chronic Plan: 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 (3) Chronic venous stasis Code(s): I87.8 - OTHER SPECIFIED DISORDERS OF VEINS Status: Chronic (4) Afib Code(s): I48.91 - UNSPECIFIED ATRIAL FIBRILLATION Status: Chronic Qualifiers: Atrial fibrillation type: paroxysmal Qualified Code(s): I48.0 - Paroxysmal atrial fibrillation (5) Alzheimer disease Code(s): G30.9 - ALZHEIMER'S DISEASE, UNSPECIFIED; F02.80 - DEMENTIA IN OTH DISEASES CLASSD ELSWHR W/O BEHAVRL DISTURB Status: Chronic Qualifiers: Alzheimer's disease onset: unspecified onset (6) Dyslipidemia Code(s): E78.5 - HYPERLIPIDEMIA, UNSPECIFIED Status: Chronic (7) HTN (hypertension) Code(s): I10 - ESSENTIAL (PRIMARY) HYPERTENSION Status: Chronic Qualifiers: Hypertension type: essential hypertension Qualified Code(s): I10 - Essential (primary) hypertension - Plan is on vanc and zosyn, cultures have been obtained continue asp, lipitor, maryann cd, lyrica, namenda and aricept wound care, will see her on tuesday hemostable, sourav will need placement
--- NOTE | 2018-10-07 15:36 | CON ---
DATE OF CONSULTATION: HISTORY OF PRESENT ILLNESS: Sylvie Davis is a 78-year-old female ambulates with a walker, lives at home with her . She is admitted by Dr. Saunders, hospitalist service, on 10/06/2018, 7 p.m. on Tuesday for a right foot infection. Home Health has been managing the wound care. The wound is swollen and red. X-rays revealed changes consistent with osteomyelitis. She is transferred from [facility]. The patient has had prior amputation of the left great toe by Dr. Ballesteros. This wound had almost completely healed, except for a small opening. The patient has an ulceration over the metatarsophalangeal joint laterally right foot of the fifth toe. Probing of this wound revealed it extends down to the bone. The patient has a history of dementia, chronic venous stasis disease. She reports history of coronary stents. She has a history of bariatric surgery in 1991, type of which she cannot recall. This was an open procedure. MEDICATIONS: 1. Acyclovir. 2. Lyrica. 3. Aspirin. 4. Zyrtec. 5. Vitamin D. 6. Cardizem. 7. Aricept. 8. Namenda. 9. Melatonin. 10. Lipitor. 11. Prilosec. 12. Ultram. 13. Tylenol. ALLERGIES: CODEINE, MORPHINE. HABITS: Tobacco and alcohol, none. FAMILY HISTORY: Significant for that her mother in her late 60s, father at age 74. The patient is a DNR per Dr. Saunders's report. Power of workers compensation defense attorney is the patient's . PAST MEDICAL HISTORY: Dementia, GERD, history of morbid obesity, coronary artery disease with cardiac catheterization in 2013 and stenting. Prior stroke, right [employer] territory. Based on MRI of March 2018. PAST SURGICAL HISTORY: Bariatric surgery in 1981, type of which she cannot recall, open procedure; hysterectomy, unknown status of ovaries; IVC filter in 2013; right shoulder surgery. PHYSICAL EXAMINATION: GENERAL: The patient is alert and able to converse. She is not cognitive of her details of her past history, but she is able to give some history. VITAL SIGNS: 5 feet 9 inches, 255 pounds, 37 BMI, temperature 97.8, heart rate 72, blood pressure 159/71. HEAD, EYES, EARS, NOSE, AND THROAT: Unremarkable. LUNGS: Clear to auscultation. CARDIAC: Regular rate and rhythm. No murmur or gallop. ABDOMEN: Soft and nontender. Midline scar, well healed, xiphoid, below umbilicus. No abdominal masses. EXTREMITIES: Palpable femoral, popliteal, posterior tibial pulses bilaterally. Chronic venous stasis changes in both feet. Status post amputation of left great toe, wound completely healed, almost except for open wound approximately less than 1 cm, granulating without infection. It is superficial in depth. On the right foot, there is an ulceration laterally over the metatarsophalangeal joint of the small toe. This extends to the bone. IMAGING STUDIES: X-rays of the right foot reveal changes consistent with osteomyelitis of the metatarsal. White count 7, hemoglobin 12. Comprehensive metabolic profile normal. ASSESSMENT AND PLAN: Osteomyelitis, right foot. We would recommend amputation of the right fifth toe and metatarsal healing by secondary intention with wound VAC and outpatient arrangements for wound VAC. She understands risks, benefits, and consents. She will discuss with her . We will plan this for Tuesday unless she decides otherwise. Job ID: [id number]
--- NOTE | 2018-10-07 18:32 | RAD ---
Right foot 3 views HISTORY: Right foot pain. Ulcers. COMPARISON: 10/06/2018. FINDINGS: Lisfranc joint alignment is anatomic. Plantar arch is maintained. Erosions involving the pl renea lateral aspect of the fifth metatarsal head is again demonstrated. Medial subluxation of the lateral third metatarsophalangeal joints is also stable. Osseous structures are diffusely demineraliz ed. Prominent degenerative changes of the midfoot and hindfoot. IMPRESSION: Erosion of the fifth metatarsal head and other findings are stable.
--- NOTE | 2018-10-07 18:34 | RAD ---
Left foot 3 views HISTORY: Left foot pain. Ulcers. COMPARISON: 12/21/2017. FINDINGS: Amputation of the first ray at the distal metatarsal shaft is now apparent. Small amount of soft tissue gas at the medial margin of the postoperative level. Surgical resection of the fifth metatarsal head is similar in appearance. Lisfranc joint alignment is anatomic. Plantar arch is maint ained. Osteophytosis and other degenerative changes throughout the foot are similar in appearance to the prior study. IMPRESSION: Interval surgical resection of the left big toe. Other findings are stable.
[2018-10-07 20:28] LABS: Vancomycin, Trough 19.3 ug/mL
[2018-10-07] MEDS: traMADol HCl 50 MG TAB PO SCH (20:44)
[2018-10-07] MEDS: Vancomycin HCl 1 GM in Premix Bag 1 BAG IVPB SCH (20:45)
[2018-10-08] MEDS: Piperacillin/Tazobactam 3.375 GM in Sodium Chloride 0.9% 100 ML IVPB SCH ×3 (04:51→20:06)
[2018-10-08 08:43] LABS: Anion Gap 11 mmol/L (10-20); BUN (Urea Nitrogen) 17 mg/dL (9.8-20.1); Calc. Creatinine Clearance 82 mL/min (70-130); Calcium 9.2 mg/dL (7.8-10.44); Carbon Dioxide 27 mmol/L (23-31); Chloride 106 mmol/L (98-107); Estimated GFR-MDRD 52; Glucose 117 mg/dL (83-110); Potassium 4.4 mmol/L (3.5-5.1); Sodium 140 mmol/L (136-145)
[2018-10-08] MEDS: Pregabalin 50 MG CAP PO SCH ×2 (09:38→20:05)
[2018-10-08] MEDS: Aspirin 325 MG TAB PO SCH (09:38)
[2018-10-08] MEDS: Enoxaparin Sodium 40 MG/0.4 ML SYRINGE SC SCH (09:39)
[2018-10-08] MEDS: Donepezil HCl 5 MG TAB PO SCH (09:39)
[2018-10-08] MEDS: Atorvastatin Calcium 40 MG TAB PO SCH (09:39)
[2018-10-08] MEDS: Senokot S 8.6-50 MG TAB PO SCH ×2 (09:40→20:05)
[2018-10-08] MEDS: Vancomycin HCl 1 GM in Premix Bag 1 BAG IVPB SCH ×2 (09:45→20:06)
--- NOTE | 2018-10-08 14:11 | PDOC.HOSPP ---
- Subjective Subjective: awake, not in distress is moving extemities has worked with PT yesterday - Objective Vital Signs & Weight: Vital Signs (12 hours) Temp Pulse Resp BP BP Pulse Ox 10/08/18 09:39 66 148/53 H 10/08/18 08:28 98.3 F 66 18 148/83 H 96 10/08/18 08:00 96 Weight Admit Weight 255 lb 4.8 oz Weight 255 lb 4.8 oz Result Diagrams: 10/07/18 05:48 10/08/18 07:36 ROS - Review of Systems All systems: All other ROS were reviewed and found negative. - Medication Medications: Active Medications Generic Name Dose Route Start Last Admin Trade Name Freq PRN Reason Stop Dose Admin Aspirin 325 mg 10/07/18 09:00 10/08/18 09:38 Aspirin PO 325 mg DAILY PRISCILLA Administration Atorvastatin Calcium 40 mg 10/07/18 09:00 10/08/18 09:39 Lipitor PO 40 mg DAILY PRISCILLA Administration Diltiazem HCl 120 mg 10/07/18 09:00 10/08/18 09:39 Cardizem Cd PO 120 mg DAILY PRISCILLA Administration Donepezil HCl 5 mg 10/07/18 09:00 10/08/18 09:39 Aricept PO 5 mg DAILY PRISCILLA Administration Enoxaparin Sodium 40 mg 10/07/18 09:00 10/08/18 09:39 Lovenox SC 40 mg 0900 PRISCILLA Administration Piperacillin Sod/Tazobactam 100 mls @ 200 mls/hr 10/06/18 22:00 10/08/18 04: 51 Sod 3.375 gm/ Sodium Chloride IVPB 100 mls Q8HR PRISCILLA Administration Vancomycin HCl 1 gm/ Device 200 mls @ 200 mls/hr 10/07/18 21:00 10/08/18 09: 45 IVPB 200 mls Q12HR PRISCILLA Administration Memantine 5 mg 10/07/18 09:00 10/08/18 09:39 Namenda PO 5 mg DAILY PRISCILLA Administration Pantoprazole Sodium 40 mg 10/06/18 21:00 10/07/18 20:43 Protonix PO 40 mg HS PRISCILLA Administration Pregabalin 50 mg 10/06/18 21:00 10/08/18 09:38 Lyrica PO 50 mg BID PRISCILLA Administration Senna/Docusate Sodium 2 tab 10/06/18 21:00 10/08/18 09:40 Senokot S PO Not Given BID PRISCILLA Sodium Chloride 10 ml 10/06/18 21:00 10/08/18 09:40 Flush - Normal Saline IVF 10 ml Q12HR PRISCILLA Administration Tramadol HCl 50 mg 10/06/18 21:00 10/07/18 20:44 Ultram PO 50 mg HS PRISCILLA Administration - Exam NAD, awake alert Eye: PERRL, anicteric sclera ENT: normocephalic atraumatic, moist mucosa Neck: supple, no JVD Heart: RRR, no gallops Respiratory: CTAB, no rales Gastrointestinal: soft, non-tender, normal bowel sounds Extremities: no cyanosis, no clubbing Neurological: CN's grossly intact, no focal deficits Hosp A/P (1) Osteomyelitis Code(s): M86.9 - OSTEOMYELITIS, UNSPECIFIED Status: Acute Qualifiers: Osteomyelitis location: foot Laterality: right (2) H/O: CVA (cerebrovascular accident) Code(s): Z86.73 - PRSNL HX OF TIA (TIA), AND CEREB INFRC W/O RESID DEFICITS Status: Chronic (3) Chronic venous stasis Code(s): I87.8 - OTHER SPECIFIED DISORDERS OF VEINS Status: Chronic (4) Afib Code(s): I48.91 - UNSPECIFIED ATRIAL FIBRILLATION Status: Chronic Qualifiers: Atrial fibrillation type: paroxysmal Qualified Code(s): I48.0 - Paroxysmal atrial fibrillation (5) Alzheimer disease Code(s): G30.9 - ALZHEIMER'S DISEASE, UNSPECIFIED; F02.80 - DEMENTIA IN OTH DISEASES CLASSD ELSWHR W/O BEHAVRL DISTURB Status: Chronic Qualifiers: Alzheimer's disease onset: unspecified onset (6) Dyslipidemia Code(s): E78.5 - HYPERLIPIDEMIA, UNSPECIFIED Status: Chronic (7) HTN (hypertension) Code(s): I10 - ESSENTIAL (PRIMARY) HYPERTENSION Status: Chronic Qualifiers: Hypertension type: essential hypertension Qualified Code(s): I10 - Essential (primary) hypertension - Plan hemostable await gen surgery/fur weigher opinion in am is on vanc and zosyn, wound care continue asp, lipitor, cardizem cd, lyrica, namenda and aricept
[2018-10-08 18:59] LABS: Bacteria/HPF None Seen HPF (None Seen); Bilirubin Negative (Negative); Blood, Urine Trace (Negative); Clarity Clear (Clear); Glucose, Urine (Dipstick) Normal (Negative); Leukocyte Negative Leu/uL (Negative); Nitrite Negative (Negative); Protein, Urine (Dipstick) 50 mg/dL (Neg-Trace); RBC/HPF 0-3 HPF (0-3); Urobilinogen Normal mg/dL (Less than 2); WBC/HPF 0-3 HPF (0-3)
[2018-10-08 19:03] LABS: Urine Culture Reflex No No
[2018-10-08] MEDS: traMADol HCl 50 MG TAB PO SCH (20:05)
[2018-10-09] MEDS: Piperacillin/Tazobactam 3.375 GM in Sodium Chloride 0.9% 100 ML IVPB SCH (05:06)
[2018-10-09 05:48] LABS: Anion Gap 12 mmol/L (10-20); BUN (Urea Nitrogen) 26 mg/dL (9.8-20.1); Calc. Creatinine Clearance 36 mL/min (70-130); Calcium 9.4 mg/dL (7.8-10.44); Carbon Dioxide 28 mmol/L (23-31); Chloride 106 mmol/L (98-107); Estimated GFR-MDRD 20; Glucose 111 mg/dL (83-110); Potassium 4.2 mmol/L (3.5-5.1); Sodium 142 mmol/L (136-145)
[2018-10-09 08:31] LABS: Vancomycin, Trough 42.4 ug/mL
[2018-10-09] MEDS ORDERED: Vancomycin HCl 1 GM in Premix Bag 1 BAG IVPB SCH (09:00)
[2018-10-09] MEDS: Sodium Chloride 0.9% 1,000 ML IV SCH ×2 (09:15→21:09)
[2018-10-09] MEDS: Aspirin 325 MG TAB PO SCH (09:24)
[2018-10-09] MEDS: Donepezil HCl 5 MG TAB PO SCH (09:24)
[2018-10-09] MEDS: Atorvastatin Calcium 40 MG TAB PO SCH (09:24)
[2018-10-09] MEDS: Senokot S 8.6-50 MG TAB PO SCH ×2 (09:24→21:00)
[2018-10-09] MEDS: Pregabalin 50 MG CAP PO SCH ×2 (09:24→21:04)
[2018-10-09] MEDS: Enoxaparin Sodium 30 MG/0.3 ML SYRINGE SC SCH (09:31)
--- NOTE | 2018-10-09 10:59 | CON ---
DATE OF CONSULTATION: 10/07/2018 SUBJECTIVE FINDINGS: I was asked to see the patient on 10/07/2018, which I did, and no family was present. The patient was resting comfortably in bed. The patient was sent to [facility] by her home nurse who noted her right foot being red and swollen. She was then transferred to [facility] in [place]. Reported x-rays being taken with some changes on the fifth metatarsal head. The patient is well known to me in the office and underwent left hallux and 1st ray partial amputation in 12/2017. OBJECTIVE FINDINGS: In cumalative findings from yesterday and today, the patient had a white blood cell count of 7.7 on 10/07/2018. The patient's blood glucose was 117 today. She is currently on vancomycin. Examination of the left foot shows a non-healed wound at the level of the medial aspect of the foot in association with the previous amputation. This wound looked bigger when I last saw her, and from reports from a wound care, it was much smaller. The left foot shows no signs of infection. No drainage. No erythema. No swelling. Today, the left foot wound measures 10 mm x 5 mm x 7 mm. No probing to bone. There is no erythema and no drainage. Examination of the right foot shows no gross swelling. No drainage. There is a wound located at the lateral fifth metatarsophalangeal joint. Some fibrotic tissue present. After debridement of this wound, it measures 10 mm x 12 mm x 3 mm. At the distal aspect of the wound, there is this was where the 3 mm depth is located. Probable debris in the metatarsophalangeal joint capsule, but could not be confirmed with visual examination. X-rays from [place] as well as yesterday show erosion on the fifth metatarsal. This does not appear to be grossly active, however, osteomyelitis cannot be ruled out. The patient has significant neuropathy. Her dorsalis pedis pulses are palpable 2/4 bilaterally. The PT pulses are nonpalpable bilaterally. However, there is moderate edema around the ankle. The patient's capillary filling time to bilateral digits is less than 3 seconds. ASSESSMENT AND PLAN: 1. I cannot rule out osteomyelitis, but due to the foot's appearance, I have some question regarding this diagnosis. 2. I discussed with her son over the phone in the evening yesterday plan and what we are trying to diagnose, he appeared to understand, all of his questions were answered. 3. At this time, an MRI will be ordered to evaluate the erosion process on the fifth metatarsal and right foot. If it is positive for osteomyelitis, choices can be amputation with IV antibiotics or IV antibiotics with wound care. 4. Left foot, we will continue wound care for this area. No surgical intervention is needed at this time. Job ID: [id number]
--- NOTE | 2018-10-09 14:30 | PDOC.HOSPP ---
- Subjective Subjective: awake, a bit lethargic this am no sob or leg pain she is usually slow to talk and recollect information. - Objective Vital Signs & Weight: Vital Signs (12 hours) Temp Pulse Resp BP BP Pulse Ox 10/09/18 09:24 81 169/86 H 10/09/18 09:10 97 10/09/18 07:39 99.1 F 81 20 169/86 H 97 Weight Admit Weight 255 lb 4.8 oz Weight 255 lb 4.8 oz Result Diagrams: 10/07/18 05:48 10/09/18 05:02 ROS - Review of Systems All systems: All other ROS were reviewed and found negative. - Medication Medications: Active Medications Generic Name Dose Route Start Last Admin Trade Name Freq PRN Reason Stop Dose Admin Aspirin 325 mg 10/07/18 09:00 10/09/18 09:24 Aspirin PO 325 mg DAILY PRISCILLA Administration Atorvastatin Calcium 40 mg 10/07/18 09:00 10/09/18 09:24 Lipitor PO 40 mg DAILY PRISCILLA Administration Diltiazem HCl 120 mg 10/07/18 09:00 10/09/18 09:24 Cardizem Cd PO 120 mg DAILY PRISCILLA Administration Donepezil HCl 5 mg 10/07/18 09:00 10/09/18 09:24 Aricept PO 5 mg DAILY PRISCILLA Administration Enoxaparin Sodium 30 mg 10/09/18 09:00 10/09/18 09:31 Lovenox SC 30 mg 0900 PRISCILLA Administration Sodium Chloride 1,000 mls @ 100 mls/hr 10/09/18 08:00 10/09/18 09:15 Normal Saline 0.9% IV 1,000 mls .Q10H PRISCILLA Administration Memantine 5 mg 10/07/18 09:00 10/09/18 09:24 Namenda PO 5 mg DAILY PRISCILLA Administration Pantoprazole Sodium 40 mg 10/06/18 21:00 10/08/18 20:05 Protonix PO 40 mg HS PRISCILLA Administration Pregabalin 50 mg 10/06/18 21:00 10/09/18 09:24 Lyrica PO 50 mg BID PRISCILLA Administration Senna/Docusate Sodium 2 tab 10/06/18 21:00 10/09/18 09:24 Senokot S PO 2 tab BID PRISCILLA Administration Sodium Chloride 10 ml 10/06/18 21:00 10/09/18 09:18 Flush - Normal Saline IVF 10 ml Q12HR PRISCILLA Administration Tramadol HCl 50 mg 10/06/18 21:00 10/08/18 20:05 Ultram PO 50 mg HS PRISCILLA Administration - Exam NAD (right foot in dressing) Eye: PERRL, anicteric sclera ENT: no oropharyngeal lesions, moist mucosa Neck: supple, no JVD Heart: RRR, no gallops Respiratory: no wheezes, rhonchi Gastrointestinal: soft, non-tender, normal bowel sounds Extremities: 1+ LE edema Neurological: CN's grossly intact, no focal deficits Psychiatric: normal affect Hosp A/P (1) Osteomyelitis Code(s): M86.9 - OSTEOMYELITIS, UNSPECIFIED Status: Acute Qualifiers: Osteomyelitis location: foot Laterality: right (2) H/O: CVA (cerebrovascular accident) Code(s): Z86.73 - PRSNL HX OF TIA (TIA), AND CEREB INFRC W/O RESID DEFICITS Status: Chronic (3) Chronic venous stasis Code(s): I87.8 - OTHER SPECIFIED DISORDERS OF VEINS Status: Chronic (4) Afib Code(s): I48.91 - UNSPECIFIED ATRIAL FIBRILLATION Status: Chronic Qualifiers: Atrial fibrillation type: paroxysmal Qualified Code(s): I48.0 - Paroxysmal atrial fibrillation (5) Alzheimer disease Code(s): G30.9 - ALZHEIMER'S DISEASE, UNSPECIFIED; F02.80 - DEMENTIA IN OTH DISEASES CLASSD ELSWHR W/O BEHAVRL DISTURB Status: Chronic Qualifiers: Alzheimer's disease onset: unspecified onset (6) Dyslipidemia Code(s): E78.5 - HYPERLIPIDEMIA, UNSPECIFIED Status: Chronic (7) HTN (hypertension) Code(s): I10 - ESSENTIAL (PRIMARY) HYPERTENSION Status: Chronic Qualifiers: Hypertension type: essential hypertension Qualified Code(s): I10 - Essential (primary) hypertension (8) EDUARD (acute kidney injury) Code(s): N17.9 - ACUTE KIDNEY FAILURE, UNSPECIFIED Status: Acute Plan: likely sec to antibiotics/infection - Plan vanc trough is high, held, pharmacy to dose per protocol dc zosyn, add cipro renal dose gentle iv hydration, may dc if she starts coughing or clinical signs of overload Statistical Modeler has seen her, mri is pending, no contrast with MRI due to eduard continue asp, lipitor, cardijessicam cd, lyrica, namenda and aricept PT to mobilize as tolerated, has been amb and participating with PT
--- NOTE | 2018-10-09 18:15 | MRI ---
MRI RIGHT FOOT WITH AND WITHOUT CONTRAST: 10/09/2018 HISTORY: Concern for infection laterally. Erosion in the region of the 5th metatarsal head. COMPARISON: None. TECHNIQUE: Multiplanar, multisequence MR imaging of the midfoot/forefoot on the right obtained with and without contrast media. FINDINGS: STIR imaging demonstrates abnormally increased signal intensity within the majority of the 5th proxim al phalanx, as well as involving the head of the 5th metatarsal. These areas of increased STIR signa l demonstrate abnormally decreased precontrast T1 marrow signal intensity and post contrast enhanceme nt. Findings are suspicious for osteomyelitis involving the 5th proximal phalanx and the 5th metatar lory head with probable involvement of the joint and associated septic arthritis of the 5th metatarsop halangeal joint. The 5th distal phalanx appears normal in signal intensity. There is no additional area of abnormal signal intensity concerning for osteomyelitis. There are a few foci of abnormal sig nal intensity involving the base of the 1st proximal phalanx and the 1st metatarsal head, which are p robably on the basis of degenerative change. The soft tissues adjacent to the 5th metatarsal head and the 5th proximal phalanx demonstrate edema w ith enhancement, suggesting associated cellulitis. There is partial visualization of the calcaneus, near its articulation with the cuboid bone. The sub talar joint is partially imaged. These regions demonstrate increased STIR signal with enhancement, s uggesting severe degenerative change involving the subtalar joint and the calcaneal cuboid articulati on. Infection in these regions cannot be fully excluded, but correlation with radiographs suggests t hat this is on the basis of degenerative change. IMPRESSION: 1. Findings suggesting septic arthritis at the 5th metatarsophalangeal joint, with associated osteom yelitis of the 5th metatarsal head and the 5th proximal phalanx. Adjacent soft tissue signal abnorma lity suggests cellulitis. 2. Partially imaged hindfoot, demonstrating probable prominent subtalar joint degenerative change. Please see above discussion. POS: GAIL
[2018-10-09] MEDS: traMADol HCl 50 MG TAB PO SCH (21:01)
[2018-10-09] MEDS: Ciprofloxacin 500 MG TAB PO SCH (21:03)
--- NOTE | 2018-10-09 21:50 | CON ---
DATE OF CONSULTATION: 10/09/2018 REASON FOR CONSULTATION: Bilateral feet ulcers. HISTORY OF PRESENT ILLNESS: A 78-year-old, whom I had seen in the past when she presented with a history of hypertension, DVT, pulmonary embolism and neuropathy of unclear etiology, who developed an ulceration in the left first MPJ skin site a few weeks before admission. There was evidence of penetration of the ulcer to the bone and there was osteomyelitis on plain films. Therefore, she was treated with amputation of the first MPJ ray. After that, she was given antimicrobial therapy. On March 15, she was brought in complaining of left arm pain and numbness starting around midnight. 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 Discharge proceeded with resolution of left arm pain and possible transient ischemic attack. She was discharged on acyclovir for herpetic eruption, aspirin, bismuth, Aricept, Namenda, prednisone, Ultram, and Lipitor. Now, she presents with pain in the right foot and swelling. She was given vancomycin and Rocephin. The initial vital signs were pulse 63, respirations 18, O2 saturation 97%, and the exam was fairly unremarkable except for lower extremity swelling and erythema in the lateral aspect of the right foot. She had 2 feet x-rays, which showed resection of the left big toe in the left side and right foot ulcers with diffusely demineralized osseous structures. Currently, Ms. Davis is awake. She has quite a bit of difficulty in having a conversation. She has difficulty in finding words and recollecting events in the recent past. She denies headaches. No dyspnea. A little bit of cough. No abdominal pain. Voiding in the bedside commode. Ocular movements are conjugate. Sclerae are white. She has a bit of hypomotility. Oral cavity with numerous missing teeth. Neck is supple. No jugular vein distention. Lungs are symmetric. Clear breath sounds. S1 and S2, regular rate. Abdomen is soft, not distended or tender. No ascites. No bladder distention. The left first MPJ site has an area of ulceration right at the base of the fifth metatarsal amputation site. I probed this area and could not reach any evidence of bone at the base. The base appeared red with some blood. There was no erythema surrounding those areas. The left foot also had an open ulcer at the base of the left first MPJ site and I tried to probe bone with this lesion and could not either. Pulses are 1+ in dorsalis pedis. There is very slight erythema in the right lateral forefoot region. No edema. No lymphadenopathy. PHYSICAL EXAMINATION: GENERAL: She is a little bit apathetic. LYMPH: No lymphadenopathy. HEENT: Ocular movements are conjugate. Sclerae are white. Oral cavity with numerous missing teeth. NECK: Supple. No jugular venous distention. No sternoclavicular joint inflammatory changes. No shoulder pain. LUNGS: Symmetric. Clear breath sounds. HEART: S1 and S2, regular rate. No S3 or S4. ABDOMEN: Soft, not distended or tender. No ascites. No bladder distention. EXTREMITIES: Moves extremities equally, diffusely weak. NEUROLOGIC: She knows her name, knows where she is after giving some thought. LABORATORY DATA: White cell count 7.7, hemoglobin 12.7, platelets 147, 71% neutrophils. Sodium 142, creatinine 0.94. CRP 2.1. Urinalysis was fairly normal. Microbiology data with Edwige albicans and Enterococcus faecalis in the right foot sample. In the left, there is Enterococcus faecalis and Pseudomonas aeruginosa. X-rays of the left foot showed amputation of the first ray and a small amount of soft tissue gas. X-ray of the right foot demonstrated maintained plantar arch erosions involving the plantar lateral aspect of the fifth metatarsal head. ASSESSMENT AND PLAN: Hypertension, prior episodes of thromboembolism, neuropathy of unclear etiology, some element of cognitive dysfunction, prior amputations of the right 5th and left first metatarsophalangeal joint and rays with now persistence of wound ulceration, but no bone exposure after probing of the area. She has pretty good pulses and unless she has a microvascular disease, this is unlikely to represent a vascular insufficiency. The possibility of osteomyelitis has been brought up by Dr. Ballesteros and I believe MRIs have been scheduled to evaluate the possibility. The MRI in this situation may be difficult to interpret because of bone remodeling following the amputation, but she may have been enough number of months since the procedure to allow interpretation. If there is evidence of osteomyelitis, then we will have to consider treatment after debridement. If there is not, then we will just continue wound care. Job ID: [id number] [facility]
[2018-10-10] MEDS: Ciprofloxacin 500 MG TAB PO SCH ×2 (05:28→20:24)
[2018-10-10] MEDS: Sodium Chloride 0.9% 1,000 ML IV SCH ×3 (05:33→20:33)
[2018-10-10 05:51] LABS: Anion Gap 13 mmol/L (10-20); BUN (Urea Nitrogen) 28 mg/dL (9.8-20.1); Calc. Creatinine Clearance 32 mL/min (70-130); Calcium 8.8 mg/dL (7.8-10.44); Carbon Dioxide 22 mmol/L (23-31); Chloride 109 mmol/L (98-107); Estimated GFR-MDRD 18; Glucose 105 mg/dL (83-110); Potassium 3.9 mmol/L (3.5-5.1); Sodium 140 mmol/L (136-145)
[2018-10-10] MEDS: Enoxaparin Sodium 30 MG/0.3 ML SYRINGE SC SCH (07:49)
[2018-10-10] MEDS: Aspirin 325 MG TAB PO SCH (07:49)
[2018-10-10] MEDS: Donepezil HCl 5 MG TAB PO SCH (07:53)
[2018-10-10] MEDS: Senokot S 8.6-50 MG TAB PO SCH ×2 (07:58→20:23)
[2018-10-10] MEDS: Pregabalin 50 MG CAP PO SCH ×2 (09:00→20:25)
[2018-10-10] MEDS: Atorvastatin Calcium 40 MG TAB PO SCH (09:00)
--- NOTE | 2018-10-10 10:25 | CON ---
DATE OF CONSULTATION: REQUESTING PHYSICIAN: Felicia Saunders MD REASON FOR CONSULTATION: Acute kidney injury. IMPRESSION: 1. Acute kidney injury. This is likely medication related, in this case possibility of vancomycin-induced toxicity as the vancomycin of this patient is noted to be supratherapeutic. Also one cannot completely rule out cytokine mediated injury in the context of osteomyelitis. PLAN: 1. Hemodynamic support. 2. We will strongly recommend holding the vancomycin and renally dose her other medications. 3. Avoid potentially nephrotoxic agents. 4. Further management to be dependent on the clinical course. HISTORY OF PRESENT ILLNESS: A 78-year-old female patient, who presented here with osteomyelitis as well as chronic venous stasis. The patient could not give much of any history as the patient seems demented in the context of Alzheimer's disease. In any case, the patient presented with a creatinine of about 0.9 to 1.03, but over the course of hospitalization, creatinine has jumped up to 2.35 and at the same time vancomycin was noted to be supratherapeutic in terms of level, this was noted at 42.4. The finding of elevated creatinine necessitated this renal consultation. PAST MEDICAL HISTORY: Significant for osteomyelitis, peripheral neuropathy, chronic venous stasis, dementia, herpes infection, reflux disease, hemorrhoidectomy, cholecystectomy, cardiac catheterization. MEDICATIONS: Reviewed and as documented on [employer]. ALLERGIES: TO CODEINE, AND MORPHINE. SOCIAL HISTORY: No alcohol. No tobacco. No illicit drug use. REVIEW OF SYSTEMS: Highly limited given the fact this patient does not communicate. PHYSICAL EXAMINATION: GENERAL: The patient was found to be ill looking, does not quite communicate noted with the following vital signs. VITAL SIGNS: Afebrile, temperature 98.5, pulse , respiratory rate of 18, O2 saturation 93% with blood pressure of 163/81. HEENT: Unremarkable. Moist oral mucosa. NECK: Supple. No conjunctival injection or icterus. CARDIOVASCULAR: First and second heart sounds were heard. RESPIRATORY: Clear to auscultation. DIGESTIVE: Revealed an obese abdomen. EXTREMITIES: No peripheral edema. Has some wrapped with bandage. SUMMARY: A 78-year-old female patient, who presented with osteomyelitis, noted with worsening renal failure in the context of supratherapeutic vancomycin level. Job ID: [id number]
[2018-10-10] MEDS ORDERED: Neomycin-Polymyxin 1 ML AMP ONE (11:45)
[2018-10-10] MEDS ORDERED: Bupivacaine PF 0.5% 30 ML VIAL ONE (11:45)
[2018-10-10] MEDS ORDERED: Fentanyl 100 MCG/2 ML VIAL ONE (11:57)
[2018-10-10] MEDS ORDERED: Promethazine HCl 25 MG/ML VIAL SLOW IVP PRN (13:14)
[2018-10-10] MEDS ORDERED: Promethazine HCl 25 MG/ML VIAL IM PRN (13:14)
[2018-10-10] MEDS ORDERED: Ketorolac Tromethamine 30 MG/ML VIAL IVP PRN (13:14)
[2018-10-10] MEDS ORDERED: Meperidine HCl/PF 25 MG/ML VIAL SLOW IVP PRN (13:14)
[2018-10-10] MEDS ORDERED: Ondansetron HCl/PF 4 MG/2 ML Vial IVP PRN (13:14)
--- NOTE | 2018-10-10 14:59 | PRG ---
DATE OF SERVICE: 10/10/2018 OBJECTIVE: VITAL SIGNS: The patient noted with the following vital signs; afebrile, temperature 98.1, pulse 68, respiratory rate of 18, O2 saturations of 93%, blood pressure 135/72. HEENT: Unremarkable. CARDIOVASCULAR: First and second heart sounds were heard. RESPIRATORY: Clear to auscultation. DIGESTIVE: Benign abdomen. EXTREMITIES: No peripheral edema. SKIN: No new gross rash. LYMPHATICS: No peripheral lymphadenopathy. LABORATORY INVESTIGATION: Creatinine of 2.63 with BUN of 28. IMPRESSION: Acute kidney injury, possibly in the context of vancomycin toxicity, though cannot completely rule out cytokine-mediated injury. PLAN: 1. We will continue with the hemodynamics/renal support with gentle IV fluid rehydration. 2. Continue to hold vancomycin until level falls within the therapeutic range. 3. Avoid potentially nephrotoxic agents. 4. Renally dose all other medications. 5. Further management will be dependent on the clinical course. Job ID: [id number]
--- NOTE | 2018-10-10 15:19 | PRG ---
DATE OF SERVICE: 10/10/2018 PREOPERATIVE DIAGNOSIS: Septic right fifth MPJ with osteomyelitis of the fifth metatarsal distally. POSTOPERATIVE DIAGNOSIS: Septic right fifth MPJ with osteomyelitis of the fifth metatarsal distally. PROCEDURE: Amputation of the guera digit and partial fifth metatarsal. ANESTHESIA: General with local. HEMOSTASIS: None used. ESTIMATED BLOOD LOSS: Less than 100 mL. TISSUE SENT: Culture and sensitivity with Gram stain sent. COMPLICATIONS: None and should be evaluated. Job ID: [id number]
--- NOTE | 2018-10-10 15:45 | PDOC.HOSPP ---
- Subjective Subjective: pt up in bed no complains - Objective Vital Signs & Weight: Vital Signs (12 hours) Temp Pulse Resp BP BP Pulse Ox 10/10/18 11:24 98.1 F 68 18 135/72 93 L 10/10/18 07:59 93 L 10/10/18 07:52 69 134/73 10/10/18 07:06 100.4 F H 69 20 134/73 93 L 10/10/18 04:00 100.2 F H 75 18 119/63 93 L Weight Admit Weight 255 lb 4.8 oz Weight 255 lb 4.8 oz I&O: 10/09/18 10/10/18 10/11/18 06:59 06:59 06:59 Intake Total 1030 Balance 1030 Result Diagrams: 10/07/18 05:48 10/10/18 05:06 ROS - Review of Systems All systems: All other ROS were reviewed and found negative. Respiratory: denies: cough, dry, shortness of breath, hemoptysis, SOB with excertion, pleuritic pain, sputum, wheezing, other Cardiovascular: denies: chest pain, palpitations, orthopnea, paroxysmal noc. dyspnea, edema, light headedness, other Gastrointestinal: denies: nausea, vomitting, abdominal pain, diarrhea, constipation, melena, hematochezia, other - Medication Medications: Active Medications Generic Name Dose Route Start Last Admin Trade Name Freq PRN Reason Stop Dose Admin Acetaminophen 650 mg 10/06/18 19:32 10/10/18 07:50 Tylenol PO 650 mg Q4H PRN Administration Headache/Fever/Mild Pain (1-3) Aspirin 325 mg 10/07/18 09:00 10/10/18 07:49 Aspirin PO Not Given DAILY [facility] Atorvastatin Calcium 40 mg 10/07/18 09:00 10/10/18 09:00 Lipitor PO Not Given DAILY PRISCILLA Ciprofloxacin 250 mg 10/09/18 20:00 10/10/18 05:28 Cipro PO 250 mg [facility] Administration Diltiazem HCl 120 mg 10/07/18 09:00 10/10/18 07:52 Cardizem Cd PO 120 mg DAILY PRISCILLA Administration Donepezil HCl 5 mg 10/07/18 09:00 10/10/18 07:53 Aricept PO 5 mg DAILY [facility] Administration Enoxaparin Sodium 30 mg 10/09/18 09:00 10/10/18 07:49 Lovenox SC Not Given 0900 PRISCILLA Sodium Chloride 1,000 mls @ 100 mls/hr 10/09/18 08:00 10/10/18 05:33 Normal Saline 0.9% IV 1,000 mls .Q10H PRISCILLA Administration Memantine 5 mg 10/07/18 09:00 10/10/18 07:53 Namenda PO 5 mg DAILY PRISCILLA Administration Pantoprazole Sodium 40 mg 10/06/18 21:00 10/09/18 21:00 Protonix PO 40 mg HS PRISCILLA Administration Pregabalin 50 mg 10/06/18 21:00 10/10/18 09:00 Lyrica PO Not Given BID PRISCILLA Senna/Docusate Sodium 2 tab 10/06/18 21:00 10/10/18 07:58 Senokot S PO Not Given BID PRISCILLA Sodium Chloride 10 ml 10/06/18 21:00 10/10/18 07:57 Flush - Normal Saline IVF Not Given Q12HR PRISCILLA Tramadol HCl 50 mg 10/06/18 21:00 10/09/18 21:01 Ultram PO 50 mg HS PRISCILLA Administration - Exam Neck: negative: supple, symmetric, no JVD, no Thyromegaly, no lymphadenopathy, no carotid bruit, JVD Heart: negative: RRR, no murmur, no gallops, no rubs, normal peripheral pulses, irregular, diminshed peripheral pulses, murmur present, II/IV, III/IV Respiratory: negative: CTAB, no wheezes, no rales, no ronchi, normal chest expansion, no tachypnea, normal percussion, rales, rhonchi, tachypneic, wheezes Extremities: no edema (pt's has good pedal pulses wounds wrapped) Hosp A/P (1) Osteomyelitis Code(s): M86.9 - OSTEOMYELITIS, UNSPECIFIED Status: Acute Qualifiers: Osteomyelitis location: foot Laterality: right (2) Afib Code(s): I48.91 - UNSPECIFIED ATRIAL FIBRILLATION Status: Chronic Qualifiers: Atrial fibrillation type: paroxysmal Qualified Code(s): I48.0 - Paroxysmal atrial fibrillation (3) Dyslipidemia Code(s): E78.5 - HYPERLIPIDEMIA, UNSPECIFIED Status: Chronic (4) HTN (hypertension) Code(s): I10 - ESSENTIAL (PRIMARY) HYPERTENSION Status: Chronic Qualifiers: Hypertension type: essential hypertension Qualified Code(s): I10 - Essential (primary) hypertension - Plan pt's MRI indicates osteomyelitis. pt to undergo surgery today. per nursing staff daughter wants her to be full code. will add incentive spirometry.
[2018-10-10] MEDS ORDERED: Glycopyrrolate 0.2 MG/ML 5 ML SYRINGE ONE (15:49)
[2018-10-10] MEDS ORDERED: Lidocaine 1% PF 5 ML VIAL ONE (15:49)
[2018-10-10] MEDS ORDERED: Ondansetron PF 4 MG/2 ML Vial ONE (15:49)
[2018-10-10] MEDS ORDERED: Atropine Sulfate 0.4 mg/1 ml Vial ONE (15:49)
[2018-10-10] MEDS ORDERED: ePHEDrine 50 MG/ML VIAL ONE (15:49)
[2018-10-10] MEDS ORDERED: PROPOFOL 200 MG/20 ML VIAL ONE (15:49)
[2018-10-10] MEDS: Vancomycin HCl 500 MG in Sodium Chloride 0.9% 100 ML IVPB SCH (15:51)
--- NOTE | 2018-10-10 17:06 | OP ---
DATE OF PROCEDURE: 10/10/2018 PREOPERATIVE DIAGNOSIS: Septic joint with osteomyelitis, right fifth MPJ and metatarsal. POSTOPERATIVE DIAGNOSIS: Septic joint with osteomyelitis, right fifth MPJ and metatarsal. PROCEDURES PERFORMED: Amputation of right fifth digit and partial right fifth metatarsal. ESTIMATED BLOOD LOSS: Less than 100 mL. HEMOSTASIS: None used. ANESTHESIA: General with local. DESCRIPTION OF PROCEDURE: The patient was taken to the operating room, placed on the operating room table in a supine position. After general anesthesia was achieved, a mini Parsons block was performed using 9 mL of 0.5% plain Marcaine. The right lower extremity was then scrubbed and draped in the usual surgical manner. Attention was directed to the right foot. A circumferential incision was made from the dorsal aspect of the fifth metatarsal around the fifth digit. Soft tissues were dissected to expose the MPJ and the mid shaft of the fifth metatarsal. Using a power saw, the fifth metatarsal was cut at a bias. The entire anatomical unit was then removed and passed to the back table. All extensor and flexor tendons were clamped, retracted distally and transected proximally. All tissues remaining appeared healthy, viable, and good bleeding to the wound noted. A pulse lavage was used on the wound. Skin flaps were reapproximated loosely with 3-0 nylon suture and the wound was packed with iodoform gauze. Dressings were applied consisting of 4x4 gauze, Nayeli, and Kevin bandage. The patient will have a VAC placed tomorrow. The patient tolerated the anesthesia and procedure well. The patient left the operating room to the recovery room with vital signs stable. We will follow up with her inhouse tomorrow. She is being readmitted. Job ID: [id number]
--- NOTE | 2018-10-10 17:17 | RAD ---
3 VIEWS RIGHT FOOT: Date: 10/10/18 INDICATION: Status post surgery. COMPARISON: Prior exam dated 10/07/18. FINDINGS: Since the prior exam, there has been interval partial ray amputation of the fifth digit. Diffuse oste openia and scattered degenerative change is similar appearing. There is soft tissue swelling and gas remaining at the amputation site. IMPRESSION: Interval partial ray amputation of the fifth digit. POS: [facility]
[2018-10-10] MEDS: traMADol HCl 50 MG TAB PO SCH (20:26)
[2018-10-10] MEDS: Heparin 5,000 UNITS/ML VIAL SC SCH (20:27)
[2018-10-11] MEDS: Sodium Chloride 0.9% 1,000 ML IV SCH ×2 (03:05→16:04)
[2018-10-11 05:53] LABS: Anion Gap 13 mmol/L (10-20); BUN (Urea Nitrogen) 33 mg/dL (9.8-20.1); Calc. Creatinine Clearance 31 mL/min (70-130); Calcium 9.1 mg/dL (7.8-10.44); Carbon Dioxide 22 mmol/L (23-31); Chloride 109 mmol/L (98-107); Estimated GFR-MDRD 17; Glucose 92 mg/dL (83-110); Potassium 4.1 mmol/L (3.5-5.1); Sodium 140 mmol/L (136-145)
[2018-10-11] MEDS: Vancomycin HCl 500 MG in Sodium Chloride 0.9% 100 ML IVPB SCH (06:02)
[2018-10-11] MEDS: Ciprofloxacin 500 MG TAB PO SCH ×2 (06:07→20:54)
[2018-10-11] MEDS: Donepezil HCl 5 MG TAB PO SCH (09:08)
[2018-10-11] MEDS: Pregabalin 50 MG CAP PO SCH ×2 (09:08→20:55)
[2018-10-11] MEDS: Aspirin 325 MG TAB PO SCH (09:08)
[2018-10-11] MEDS: Senokot S 8.6-50 MG TAB PO SCH ×2 (09:09→20:55)
[2018-10-11] MEDS: Atorvastatin Calcium 40 MG TAB PO SCH (09:09)
[2018-10-11] MEDS: Heparin 5,000 UNITS/ML VIAL SC SCH ×3 (09:09→20:55)
[2018-10-11 16:35] LABS: Vancomycin, Trough 22.7 ug/mL
--- NOTE | 2018-10-11 17:17 | PDOC.HOSPP ---
- Subjective Subjective: pt up in bed no complains - Objective Vital Signs & Weight: Vital Signs (12 hours) Temp Pulse Resp BP BP Pulse Ox 10/11/18 11:00 97.5 F L 80 18 131/73 95 10/11/18 09:08 74 151/75 H 10/11/18 08:00 94 L 10/11/18 07:08 98.2 F 74 18 151/75 H 94 L Weight Admit Weight 255 lb 4.8 oz Weight 255 lb 4.8 oz I&O: 10/10/18 10/11/18 10/12/18 06:59 06:59 06:59 Intake Total 1030 600 240 Balance 1030 600 240 Result Diagrams: 10/07/18 05:48 10/11/18 04:43 ROS - Review of Systems All systems: All other ROS were reviewed and found negative. Respiratory: denies: cough, dry, shortness of breath, hemoptysis, SOB with excertion, pleuritic pain, sputum, wheezing, other Cardiovascular: denies: chest pain, palpitations, orthopnea, paroxysmal noc. dyspnea, edema, light headedness, other Gastrointestinal: denies: nausea, vomitting, abdominal pain, diarrhea, constipation, melena, hematochezia, other - Medication Medications: Active Medications Generic Name Dose Route Start Last Admin Trade Name Jaycobq PRN Reason Stop Dose Admin Acetaminophen 650 mg 10/06/18 19:32 10/10/18 07:50 Tylenol PO 650 mg Q4H PRN Administration Headache/Fever/Mild Pain (1-3) Aspirin 325 mg 10/07/18 09:00 10/11/18 09:08 Aspirin PO 325 mg DAILY [facility] Administration Atorvastatin Calcium 40 mg 10/07/18 09:00 10/11/18 09:09 Lipitor PO 40 mg DAILY [facility] Administration Ciprofloxacin 250 mg 10/09/18 20:00 10/11/18 06:07 Cipro PO 250 mg [id number] PRISCILLA Administration Diltiazem HCl 120 mg 10/07/18 09:00 10/11/18 09:08 Cardizem Cd PO 120 mg DAILY [facility] Administration Donepezil HCl 5 mg 10/07/18 09:00 10/11/18 09:08 Aricept PO 5 mg DAILY [facility]CILLA Administration Heparin Sodium (Porcine) 5,000 units 10/10/18 21:00 10/11/18 15:58 Heparin SC 5,000 units TID PRISCILLA Administration Sodium Chloride 1,000 mls @ 100 mls/hr 10/09/18 08:00 10/11/18 16:04 Normal Saline 0.9% IV 1,000 mls .Q10H PRISCILLA Administration Memantine 5 mg 10/07/18 09:00 10/11/18 09:09 Namenda PO 5 mg DAILY [facility] Administration Pantoprazole Sodium 40 mg 10/06/18 21:00 10/10/18 20:24 Protonix PO 40 mg HS PRISCILLA Administration Pregabalin 50 mg 10/06/18 21:00 10/11/18 09:08 Lyrica PO 50 mg BID PRISCILLA Administration Senna/Docusate Sodium 2 tab 10/06/18 21:00 10/11/18 09:09 Senokot S PO Not Given BID PRISCILLA Sodium Chloride 10 ml 10/06/18 21:00 10/11/18 09:09 Flush - Normal Saline IVF Not Given Q12HR PRISCILLA Tramadol HCl 50 mg 10/06/18 21:00 10/10/18 20:26 Ultram PO 50 mg HS PRISCILLA Administration - Exam Heart: negative: RRR, no murmur, no gallops, no rubs, normal peripheral pulses, irregular, diminshed peripheral pulses, murmur present, II/IV, III/IV Respiratory: negative: CTAB, no wheezes, no rales, no ronchi, normal chest expansion, no tachypnea, normal percussion, rales, rhonchi, tachypneic, wheezes Gastrointestinal: negative: soft, non-tender, non-distended, normal bowel sounds , no palpable masses, no hepatomegaly, no splenomegaly, no bruit, tender to palpation, distended, diminished bowl sounds, voluntary guarding Hosp A/P (1) Osteomyelitis Code(s): M86.9 - OSTEOMYELITIS, UNSPECIFIED Status: Acute Qualifiers: Osteomyelitis location: foot Laterality: right (2) Afib Code(s): I48.91 - UNSPECIFIED ATRIAL FIBRILLATION Status: Chronic Qualifiers: Atrial fibrillation type: paroxysmal Qualified Code(s): I48.0 - Paroxysmal atrial fibrillation (3) Dyslipidemia Code(s): E78.5 - HYPERLIPIDEMIA, UNSPECIFIED Status: Chronic (4) HTN (hypertension) Code(s): I10 - ESSENTIAL (PRIMARY) HYPERTENSION Status: Chronic Qualifiers: Hypertension type: essential hypertension Qualified Code(s): I10 - Essential (primary) hypertension - Plan her zay is worsening. will hold vanco for now. continue hydration. she is on renal dose cipro. pain control. will order her PT. s/p right 5th digit amputation and partial 5th metatarsal amputation.
[2018-10-11] MEDS: traMADol HCl 50 MG TAB PO SCH (20:56)
--- NOTE | 2018-10-11 22:14 | PRG ---
DATE OF SERVICE: 10/11/2018 SUBJECTIVE: The patient is seen and examined with no new complaint. OBJECTIVE: VITAL SIGNS: Noted with the following vital signs; afebrile, temperature 97.5, pulse 82, respiratory rate of 18, and blood pressure of 151/75. HEENT: Unremarkable. CARDIOVASCULAR SYSTEM: First and second heart sounds were heard. RESPIRATORY SYSTEM: Clear to auscultation. DIGESTIVE SYSTEM: Revealed a benign abdomen with positive bowel sounds. EXTREMITIES: No peripheral edema. SKIN: No new gross rash. LYMPHATICS: No peripheral lymphadenopathy. LABORATORY INVESTIGATION: Showed a creatinine of 2.7. IMPRESSION: Acute kidney injury, which seems to be remaining sustained. This is likely in the context of vancomycin toxicity. PLAN: 1. We will continue with current renal supportive measures. 2. Renally dose all medications and avoid potentially nephrotoxic agents. Job ID: [id number]
[2018-10-12] MEDS: Sodium Chloride 0.9% 1,000 ML IV SCH ×3 (00:04→15:21)
[2018-10-12] MEDS: Ciprofloxacin 500 MG TAB PO SCH ×2 (05:54→20:49)
[2018-10-12 07:00] LABS: Anion Gap 13 mmol/L (10-20); BUN (Urea Nitrogen) 37 mg/dL (9.8-20.1); Calc. Creatinine Clearance 34 mL/min (70-130); Calcium 9.3 mg/dL (7.8-10.44); Carbon Dioxide 20 mmol/L (23-31); Chloride 111 mmol/L (98-107); Estimated GFR-MDRD 19; Glucose 105 mg/dL (83-110); Sodium 140 mmol/L (136-145)
[2018-10-12] MEDS: Pregabalin 50 MG CAP PO SCH ×2 (08:15→20:50)
[2018-10-12] MEDS: Atorvastatin Calcium 40 MG TAB PO SCH (08:15)
[2018-10-12] MEDS: Senokot S 8.6-50 MG TAB PO SCH ×2 (08:16→20:49)
[2018-10-12] MEDS: Aspirin 325 MG TAB PO SCH (08:16)
[2018-10-12] MEDS: Enoxaparin Sodium 30 MG/0.3 ML SYRINGE SC SCH (08:17)
[2018-10-12] MEDS: Donepezil HCl 5 MG TAB PO SCH (08:17)
--- NOTE | 2018-10-12 08:46 | PRG ---
DATE OF SERVICE: 10/11/2018 SUBJECTIVE FINDINGS: The patient was seen resting comfortably in her bed eating lunch. The patient reports having no pain in her foot. She has just finished with PT for gait training. OBJECTIVE FINDINGS: The patient is alert. The patient's bandages are dry, clean, and intact. The patient's digits are inspected and had instant capillary filling time. The bandages were not taken down due to VAC being placed later this afternoon. ASSESSMENT/PLAN: From podiatry standpoint, the patient can be discharged to half-way facility pending VAC placement and Infectious Disease plan of outpatient antibiotic treatment. ADDENDUM: Later the afternoon, I was contacted by Wound Care, and they were unable to place the VAC due to the wound bleeding too profusely. The [facility] Care re-dressed the foot with a compressive dressing, and we will place the wound VAC tomorrow. Job ID: [id number]
--- NOTE | 2018-10-12 15:49 | PDOC.HOSPP ---
- Subjective Subjective: pt up in bed no complains - Objective Vital Signs & Weight: Vital Signs (12 hours) Temp Pulse Resp BP Pulse Ox Pulse Ox 10/12/18 10:26 95 10/12/18 08:15 98 10/12/18 08:00 98.5 F 74 18 163/83 H 93 L Weight Admit Weight 255 lb 4.8 oz Weight 255 lb 4.8 oz I&O: 10/11/18 10/12/18 10/13/18 06:59 06:59 06:59 Intake Total 600 1590 600 Balance 600 1590 600 Result Diagrams: 10/07/18 05:48 10/12/18 06:16 ROS - Review of Systems All systems: All other ROS were reviewed and found negative. Respiratory: denies: cough, dry, shortness of breath, hemoptysis, SOB with excertion, pleuritic pain, sputum, wheezing, other Cardiovascular: denies: chest pain, palpitations, orthopnea, paroxysmal noc. dyspnea, edema, light headedness, other Gastrointestinal: denies: nausea, vomitting, abdominal pain, diarrhea, constipation, melena, hematochezia, other - Medication Medications: Active Medications Generic Name Dose Route Start Last Admin Trade Name Freq PRN Reason Stop Dose Admin Acetaminophen 650 mg 10/06/18 19:32 10/10/18 07:50 Tylenol PO 650 mg Q4H PRN Administration Headache/Fever/Mild Pain (1-3) Aspirin 325 mg 10/07/18 09:00 10/12/18 08:16 Aspirin PO 325 mg DAILY PRISCILLA Administration Atorvastatin Calcium 40 mg 10/07/18 09:00 10/12/18 08:15 Lipitor PO 40 mg DAILY PRISCILLA Administration Ciprofloxacin 250 mg 10/09/18 20:00 10/12/18 05:54 Cipro PO 250 mg 06,1999 PRISCILLA Administration Diltiazem HCl 120 mg 10/07/18 09:00 10/12/18 08:15 Cardizem Cd PO 120 mg DAILY PRISCILLA Administration Donepezil HCl 5 mg 10/07/18 09:00 10/12/18 08:17 Aricept PO 5 mg DAILY PRISCILLA Administration Enoxaparin Sodium 30 mg 10/12/18 09:00 10/12/18 08:17 Lovenox SC 30 mg 0900 PRISCILLA Administration Sodium Chloride 1,000 mls @ 100 mls/hr 10/09/18 08:00 10/12/18 15:21 Normal Saline 0.9% IV Not Given .Q10H PRISCILLA Memantine 5 mg 10/07/18 09:00 10/12/18 08:17 Namenda PO 5 mg DAILY PRISCILLA Administration Pantoprazole Sodium 40 mg 10/06/18 21:00 10/11/18 20:55 Protonix PO 40 mg HS PRISCILLA Administration Pregabalin 50 mg 10/06/18 21:00 10/12/18 08:15 Lyrica PO 50 mg BID PRISCILLA Administration Senna/Docusate Sodium 2 tab 10/06/18 21:00 10/12/18 08:16 Senokot S PO 2 tab BID PRISCILLA Administration Sodium Chloride 10 ml 10/06/18 21:00 10/12/18 08:17 Flush - Normal Saline IVF Not Given Q12HR PRISCILLA Tramadol HCl 50 mg 10/06/18 21:00 10/11/18 20:56 Ultram PO 50 mg HS PRISCILLA Administration - Exam Heart: negative: RRR, no murmur, no gallops, no rubs, normal peripheral pulses, irregular, diminshed peripheral pulses, murmur present, II/IV, III/IV Respiratory: negative: CTAB, no wheezes, no rales, no ronchi, normal chest expansion, no tachypnea, normal percussion, rales, rhonchi, tachypneic, wheezes Gastrointestinal: negative: soft, non-tender, non-distended, normal bowel sounds , no palpable masses, no hepatomegaly, no splenomegaly, no bruit, tender to palpation, distended, diminished bowl sounds, voluntary guarding Hosp A/P (1) Osteomyelitis Code(s): M86.9 - OSTEOMYELITIS, UNSPECIFIED Status: Acute Qualifiers: Osteomyelitis location: foot Laterality: right (2) Afib Code(s): I48.91 - UNSPECIFIED ATRIAL FIBRILLATION Status: Chronic Qualifiers: Atrial fibrillation type: paroxysmal Qualified Code(s): I48.0 - Paroxysmal atrial fibrillation (3) Dyslipidemia Code(s): E78.5 - HYPERLIPIDEMIA, UNSPECIFIED Status: Chronic (4) HTN (hypertension) Code(s): I10 - ESSENTIAL (PRIMARY) HYPERTENSION Status: Chronic Qualifiers: Hypertension type: essential hypertension Qualified Code(s): I10 - Essential (primary) hypertension - Plan pt still needs a wound vac. will ask ID for abx. pt's creatinine has improved. she is tolerating her oral well. will discontinue iv fluids.
[2018-10-12 16:22] LABS: Vancomycin, Random 17.5 ug/mL (See Comment)
[2018-10-12] MEDS: Vancomycin HCl 500 MG in Sodium Chloride 0.9% 100 ML IVPB SCH (17:28)
[2018-10-12] MEDS: traMADol HCl 50 MG TAB PO SCH (20:49)
[2018-10-13] MEDS: Ciprofloxacin 500 MG TAB PO SCH (05:40)
[2018-10-13] MEDS: Vancomycin HCl 500 MG in Sodium Chloride 0.9% 100 ML IVPB SCH (05:40)
[2018-10-13 06:34] LABS: Anion Gap 15 mmol/L (10-20); BUN (Urea Nitrogen) 32 mg/dL (9.8-20.1); Calc. Creatinine Clearance 40 mL/min (70-130); Calcium 9.4 mg/dL (7.8-10.44); Carbon Dioxide 22 mmol/L (23-31); Chloride 111 mmol/L (98-107); Estimated GFR-MDRD 22; Glucose 124 mg/dL (83-110); Potassium 3.6 mmol/L (3.5-5.1); Sodium 144 mmol/L (136-145)
[2018-10-13] MEDS: Aspirin 325 MG TAB PO SCH (08:59)
[2018-10-13] MEDS: Atorvastatin Calcium 40 MG TAB PO SCH (08:59)
[2018-10-13] MEDS: Enoxaparin Sodium 30 MG/0.3 ML SYRINGE SC SCH (09:00)
[2018-10-13] MEDS: Donepezil HCl 5 MG TAB PO SCH (09:00)
[2018-10-13] MEDS: Pregabalin 50 MG CAP PO SCH (09:00)
[2018-10-13] MEDS: Senokot S 8.6-50 MG TAB PO SCH (09:01)
[2018-10-13 09:14] VITALS: BP 154/82; TEMP 98
[2018-10-13] MEDS ORDERED: Fluconazole 100 MG TAB PO SCH (12:00)
[2018-10-13] MEDS ORDERED: AMOXicillin 250 MG CAP PO SCH (21:00)
--- NOTE | 2018-10-13 21:33 | DIS ---
DATE OF ADMISSION: 10/06/2018 DATE OF DISCHARGE: 10/13/2018 DISCHARGE DIAGNOSES: As of the followin. Osteomyelitis of the right foot, status post right fifth digit amputation and partial right fifth metatarsal amputation. This was done on October 10. 2. History of dementia. 3. Acute kidney injury. 4. Dyslipidemia. 5. Atrial fibrillation. HOSPITAL COURSE: The patient is a 78-year-old female, who initially presented to the hospital on 10/06 for worsening right foot wound. The patient was supposed to see Infectious Disease, however, it is unclear if she ever followed up with Infectious Disease. 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 She initially was started on broad-spectrum antibiotics and then she was admitted to the floor and she was seen by Surgery. She underwent fifth toe metatarsal amputation by Podiatry. The patient prior to that had a lower extremity MRI, which indicated concerns for osteomyelitis in the fifth metatarsophalangeal joint. The patient's blood culture indicated presumptive Edwige and enterococcus faecalis. The patient also had a wound VAC that was placed on 10/12. She will be discharged to a swing bed and she will follow up with Infectious Disease and Podiatry. HOME MEDICATIONS: Her home medications will be as of the followin. Amoxicillin 500 mg b.i.d. for a total of 2 weeks. 2. Diflucan 200 mg daily for 2 weeks. Also have recommended checking lab work twice a week. 3. Diltiazem 120 mg daily. 4. Aricept 5 mg daily. 5. Namenda 5 mg daily. 6. Lyrica 50 mg b.i.d. 7. Aspirin 325 daily. 8. Atorvastatin 40 mg daily. PHYSICAL EXAMINATION: VITAL SIGNS: Temperature of 98.0, 77, 15, 92% on room air, 154/82. GENERAL: She is awake, alert, and oriented x3. Does not appear in distress. CV: S1, S2 present. No murmurs, rubs, or gallops. LUNGS: Clear to auscultation. No rhonchi or wheezes noted. Mental quintero, she did appear more confused today. However, per family, she always gets confused when she comes in to the hospital. Job ID: [id number]
[2018-10-14] MEDS ORDERED: Fluconazole 100 MG TAB PO SCH (09:00)
== END 2018-10-13 15:35 | disposition home or self-care (01) | DRG 475 ==
LOC: ERS 15:18 → T4-A 18:42
PROVIDERS: ADMIT Internal Medicine; ATTEND Internal Medicine
PROC: 0Y6M0ZF Detachment at Right Foot, Partial 5th Ray, Open Approach (ICD-10-PCS; principal; 2018-10-10)
PROC: 0Y6X0Z0 Detachment at Right 5th Toe, Complete, Open Approach (ICD-10-PCS; 2018-10-10)
DX: M86.8X7 Other osteomyelitis, ankle and foot (principal); L03.115 Cellulitis of right lower limb; N17.9 Acute kidney failure, unspecified; G89.29 Other chronic pain; Z66 Do not resuscitate; G62.9 Polyneuropathy, unspecified; I87.8 Other specified disorders of veins; K21.9 Gastro-esophageal reflux disease without esophagitis; I48.0 Paroxysmal atrial fibrillation; G30.9 Alzheimer's disease, unspecified; F02.80 Dementia in other diseases classified elsewhere, unspecified severity, without behavioral disturbance, psychotic disturbance, mood disturbance, and anxiety; E78.5 Hyperlipidemia, unspecified; I10 Essential (primary) hypertension; T36.8X5A Adverse effect of other systemic antibiotics, initial encounter; Z89.412 Acquired absence of left great toe; Z86.718 Personal history of other venous thrombosis and embolism; Z90.710 Acquired absence of both cervix and uterus; Z90.49 Acquired absence of other specified parts of digestive tract; Z79.82 Long term (current) use of aspirin; Z88.5 Allergy status to narcotic agent; Z86.73 Personal history of transient ischemic attack (TIA), and cerebral infarction without residual deficits
CPT/HCPCS: 36415; 36416; 80048; 80202; 81001; 85025; 85652; 86140; 87070; 87077; 87086; 87186; 87205; 88305; 88311; 93005; 93010; 99285; J0131; J0461; J1644; J1650; J2001; J2405; J2543; J2704; J3010; J3370; J3490; J7050; S0020

== ENCOUNTER 2019-04-13 12:20 | Inpatient (IN) | payer MEDICARE ==
[2019-04-13 13:12] LABS: #Eosinphils 0.1 thou/uL (0.0-0.7); #Lymphocytes 0.7 thou/uL (1.20-3.40); #Monocytes 0.9 thou/uL (0.11-0.59); #Neutrophils 13.5 thou/uL (1.40-6.50); %Basophils 0.1 % (0.0-1.0); %Eosinophils 0.4 % (0.0-10.0); %Lymphocytes 4.8 % (21.0-51.0); %Monocytes 6.1 % (0.0-10.0); %Neutrophils 88.7 % (42.0-75.0); Mean Corpuscular HGB CONC 31.7 g/dL (32.0-36.0); Mean Corpuscular Volume 91.5 fL (78.0-98.0); Mean Platelet Volume 9.2 fL (7.4-10.4); Platelet Count 119 thou/uL (130-400); RBC Distribution Width 14.2 % (11.5-14.5); Red Blood Cell (RBC) Count 4.14 mill/uL (4.20-5.40); White Blood Cell (WBC) Count 15.2 thou/uL (4.8-10.8)
[2019-04-13 13:23] LABS: Bacteria/HPF None Seen HPF (None Seen); Bilirubin Negative (Negative); Blood, Urine Negative (Negative); Clarity Clear (Clear); Glucose, Urine (Dipstick) Normal (Negative); Leukocyte 25 Leu/uL (Negative); Nitrite Negative (Negative); Protein, Urine (Dipstick) 70 mg/dL (Neg-Trace); RBC/HPF 0-3 HPF (0-3); Squamous Epithelial 0-3 HPF (0-3); Urobilinogen Normal mg/dL (Less than 2)
[2019-04-13 13:41] LABS: ALT (SGPT) Less than 7 U/L (8-55); AST (SGOT) 13 U/L (5-34); Albumin 4.1 g/dL (3.4-4.8); Alkaline Phosphatase 108 U/L (40-110); Anion Gap 16 mmol/L (10-20); BUN (Urea Nitrogen) 27 mg/dL (9.8-20.1); Bilirubin, Total 0.8 mg/dL (0.2-1.2); Calc. Creatinine Clearance 0 mL/min (70-130); Calcium 9.3 mg/dL (7.8-10.44); Carbon Dioxide 18 mmol/L (23-31); Chloride 107 mmol/L (98-107); Estimated GFR-MDRD 32; Globulin 3.3 g/dL (2.4-3.5); Glucose 128 mg/dL (83-110); Lipase 15 U/L (8-78); Magnesium 1.6 mg/dL (1.6-2.6); Potassium 4.1 mmol/L (3.5-5.1); Protein, Total 7.4 g/dL (6.0-8.3); Sodium 137 mmol/L (136-145)
--- NOTE | 2019-04-13 13:47 | RAD ---
PORTABLE CHEST: Date: 04/13/2019 HISTORY: Swelling to lower extremities. COMPARISON: 04/12/2019 study. FINDINGS: Heart size appears borderline. There are some atherosclerotic changes of the aorta. The lungs are conner ar of infiltrates. IMPRESSION: No active intrathoracic disease. No signs of failure. POS: [facility]
[2019-04-13 16:42] LABS: Lactic Acid 1.9 mmol/L (0.5-2.2)
[2019-04-13] MEDS ORDERED: cefTRIAXone\\ROCEPHIN 2 GM VIAL ONE (17:48)
--- NOTE | 2019-04-13 19:52 | PDOC.HHP ---
Hospitalist HPI - History of Present Illness Weakness, bilateral LE swelling History of Present Illness: 79 year old female with PMH dementia, neuropathy, atrial fibrillation, GERD, IVF filter presents to the ED for worsening weakness, was dx with UTI yesterday 04/12 in [place] [facility] and was discharged on bactrim, WBC was 15 but nothing else seen at that time to indicate sepsis. She now reports pitting edema to the bilateral LE. Cannot walk across room or do ADL due to weakness. Denies chest pain, SOB. Dr. Suero is PCP. Pt has history of A fib and a heel wound. In ED, WBC elevated, lactic acid 2.9 (improved to 1.9 w/ bolus). UA weak positive, CXR without acute findings, admitted to [facility] for further management. Patient AOx 1 no distress does not remember why she is here. Hospitalist ROS - Review of Systems ROS unobtainable: due to mental status - Medication Medications: acyclovir oral TABLET : Strength - 400 mg : ORAL Patient Dose: 400 mg Oral 2 times a day. diltiazem oral CAPSULE, EXTENDED RELEASE : Strength - 120 mg : ORAL Patient Dose: 120 mg Oral once a day. omeprazole CAPSULE,DELAYED RELEASE (ENTERIC COATED) : Strength - 20 mg : ORAL Patient Dose: 20 mg Oral once a day (at bedtime). Aricept TABLET : Strength - 5 mg : ORAL Patient Dose: 5 mg Oral once a day. aspirin oral TABLET : Strength - 325 mg : ORAL Patient Dose: 325 mg Oral once a day. Namenda TABLET : Strength - 5 mg : ORAL Patient Dose: 5 mg Oral once a day. ZyrTEC CAPSULE : Strength - 10 mg : ORAL Patient Dose: 10 mg Oral once a day. melatonin oral LOZENGE : Strength - 3 mg : ORAL Patient Dose: 3 mg Oral once a day (at bedtime). Lipitor TABLET : Strength - 20 mg : ORAL Patient Dose: Unknown. Vitamin D3 tablet : Strength - 5,000 unit : ORAL Patient Dose: Unknown. Flonase spray,suspension : Strength - 50 mcg/actuation : NASAL Patient Dose: Unknown. Hospitalist History - Past Medical History Other Medical History: dementia, neuropathy, atrial fibrillation, GERD, IVF filter - Past Surgical History Other Surgical History: hx. left and right shoulder repair, stomach stapleing and then reversal, tubal ligation with appendix removal, Surgical history of orthopedic surgery, right and left knees, AMPUTATION L BIG TOE, AMPUTATION R 5TH TOE. - Family History Family History: reports: no pertinent history - Social History Other Social History: Lives at home, with family, Patient denies alcohol use, Patient denies drug use , Patient has no smoking history. - Exam General Appearance: NAD, awake alert Eye: PERRL, anicteric sclera ENT: normocephalic atraumatic, no oropharyngeal lesions, moist mucosa Neck: supple, symmetric, no JVD, no thyromegaly, no lymphadenopathy, no carotid bruit Heart: RRR, no murmur, no gallops, no rubs, normal peripheral pulses Respiratory: CTAB, no wheezes, no rales, no ronchi, normal chest expansion, no tachypnea, normal percussion Gastrointestinal: soft, non-tender, non-distended, normal bowel sounds, no palpable masses, no hepatomegaly, no splenomegaly, no bruit Extremities: no cyanosis, no clubbing, no edema Skin: normal turgor, no lesions, no rashes Neurological: cranial nerve grossly intact, normal sensation to touch, no weakness, no focal deficits, no new deficit Neurological - other findings: AMS Musculoskeletal: normal tone, normal strength, no muscle wasting Psychiatric: normal affect, normal behavior Psychiatric - other findings: AMS Hospitalist Results - Labs Result Diagrams: 04/13/19 12:58 04/13/19 12:58 Lab results: WBC 15.2 thou/uL (4.8-10.8) H 04/13/19 12:58 Hgb 12.0 g/dL (12.0-16.0) 04/13/19 12:58 Hct 37.9 % (36.0-47.0) 04/13/19 12:58 MCV 91.5 fL (78.0-98.0) 04/13/19 12:58 Plt Count 119 thou/uL (130-400) L 04/13/19 12:58 Neutrophils % 88.7 % (42.0-75.0) H 04/13/19 12:58 Sodium 137 mmol/L (136-145) 04/13/19 12:58 Potassium 4.1 mmol/L (3.5-5.1) 04/13/19 12:58 Chloride 107 mmol/L (98-107) 04/13/19 12:58 Carbon Dioxide 18 mmol/L (23-31) L 04/13/19 12:58 BUN 27 mg/dL (9.8-20.1) H 04/13/19 12:58 Creatinine 1.57 mg/dL (0.6-1.1) H 04/13/19 12:58 Glucose 128 mg/dL (83-110) H 04/13/19 12:58 Lactic Acid 1.9 mmol/L (0.5-2.2) 04/13/19 16:14 Calcium 9.3 mg/dL (7.8-10.44) 04/13/19 12:58 Total Bilirubin 0.8 mg/dL (0.2-1.2) 04/13/19 12:58 AST 13 U/L (5-34) 04/13/19 12:58 ALT Less than 7 U/L (8-55) L 04/13/19 12:58 Alkaline Phosphatase 108 U/L (40-110) 04/13/19 12:58 Troponin I 0.020 ng/mL (< 0.028) 04/13/19 12:58 B-Natriuretic Peptide 130.4 pg/mL (0-100) H 04/13/19 12:58 Serum Total Protein 7.4 g/dL (6.0-8.3) 04/13/19 12:58 Albumin 4.1 g/dL (3.4-4.8) 04/13/19 12:58 Lipase 15 U/L (8-78) 04/13/19 12:58 Urine Ketones Negative mg/dL (Negative) 04/13/19 13:09 Urine Blood Negative (Negative) 04/13/19 13:09 Urine Nitrite Negative (Negative) 04/13/19 13:09 Ur Leukocyte Esterase 25 Gay/uL (Negative) 04/13/19 13:09 Urine RBC 0-3 HPF (0-3) 04/13/19 13:09 Urine WBC 4-6 HPF (0-3) A 04/13/19 13:09 Ur Squamous Epith Cells 0-3 HPF (0-3) 04/13/19 13:09 Urine Bacteria None Seen HPF (None Seen) 04/13/19 13:09 Additional comment: VITAL SIGNS TueApr 13, 2019 18:49 Tommy, REMI, Nicole BP: 131/58 Pulse: 73 Resp: 20 Temp: 97.6 (Oral) Pain: 0 O2 sat: 97 on (Room Air) Time: 04/13/2019 18:49. WBC 15.2 hgb 12 plt 119 Cr 1.57 CO2 18 lactic acid 2.9 -> 1.9 UA w/ 4-6 WBC no bacteria 25 LE CXR: no active disease - EKG Interpretation EKG: afib rate [address] changes of acuity Hospitalist H&P A/P - Plan Plan: 79 year old female with PMH dementia, neuropathy, atrial fibrillation, GERD, IVF filter presents to the ED for worsening weakness. # UTI - hold bactrim continue ceftriaxone follow cultures # weakness due to delirium and metabolic encephalopathy - treat UTI as above, consult PT/OT # atria fibrillation - rate controlled continue home medications # debility - consult case management in case home health or placement recommended by therapy, disposition based on clinical improvement, lives in house with normally ambulates with walker
[2019-04-13] MEDS ORDERED: Senokot S 8.6-50 MG TAB PO PRN (21:40)
[2019-04-13] MEDS ORDERED: Promethazine HCl 12.5 MG in Sodium Chloride 0.9% 50 ML IVPB PRN (21:40)
[2019-04-13] MEDS ORDERED: Morphine 2 MG/ML SYRINGE SLOW IVP PRN (21:40)
[2019-04-13] MEDS ORDERED: Acetaminophen 325 MG TAB PO PRN (21:40)
[2019-04-13] MEDS ORDERED: Ondansetron PF 4 MG/2 ML Vial IVP PRN (21:40)
[2019-04-13] MEDS ORDERED: Bisacodyl 5 MG TAB PO PRN (21:40)
[2019-04-13] MEDS ORDERED: hydrALAZINE 20 MG/ML VIAL SLOW IVP PRN (21:40)
[2019-04-13] MEDS ORDERED: cloNIDine 0.1 MG TAB PO PRN (21:40)
[2019-04-13] MEDS ORDERED: HYDROcodone/Acetaminophen 5/325 mg Tablet PO PRN (21:40)
[2019-04-13 22:30] VITALS: BMI 36.6
[2019-04-13] MEDS ORDERED: Donepezil HCl 5 MG TAB PO SCH (22:30)
[2019-04-13] MEDS ORDERED: Melatonin 3 MG TAB PO SCH (22:30)
[2019-04-14] MEDS: Acyclovir 400 mg Tablet PO SCH ×4 (01:37→20:49)
[2019-04-14 06:05] LABS: #Basophils 0.1 thou/uL (0.0-0.2); #Eosinphils 0.3 thou/uL (0.0-0.7); #Lymphocytes 1.4 thou/uL (1.20-3.40); #Monocytes 1.3 thou/uL (0.11-0.59); #Neutrophils 8.4 thou/uL (1.40-6.50); %Basophils 0.5 % (0.0-1.0); %Eosinophils 2.8 % (0.0-10.0); %Lymphocytes 12.5 % (21.0-51.0); %Monocytes 11.5 % (0.0-10.0); %Neutrophils 72.7 % (42.0-75.0); Anion Gap 13 mmol/L (10-20); BUN (Urea Nitrogen) 23 mg/dL (9.8-20.1); Calc. Creatinine Clearance 68 mL/min (70-130); Carbon Dioxide 20 mmol/L (23-31); Chloride 109 mmol/L (98-107); Estimated GFR-MDRD 44; Glucose 102 mg/dL (83-110); Hemoglobin 11.1 g/dL (12.0-16.0); Mean Corpuscular Hemoglobin 29.2 pg (27.0-31.0); Mean Corpuscular Volume 91.2 fL (78.0-98.0); Mean Platelet Volume 9.3 fL (7.4-10.4); Platelet Count 99 thou/uL (130-400); Potassium 4.2 mmol/L (3.5-5.1); RBC Distribution Width 14.4 % (11.5-14.5); Red Blood Cell (RBC) Count 3.82 mill/uL (4.20-5.40); Sodium 138 mmol/L (136-145); White Blood Cell (WBC) Count 11.5 thou/uL (4.8-10.8)
[2019-04-14] MEDS: Polyethylene Glycol 3350 17 GM Packet PO SCH (08:07)
[2019-04-14] MEDS: Aspirin 325 MG TAB PO SCH (08:07)
[2019-04-14] MEDS: Enoxaparin Sodium 40 MG/0.4 ML SYRINGE SC SCH (08:07)
[2019-04-14] MEDS: Fluticasone Propionate Nasal Spray 16 gm Bottle NASAL SCH (08:11)
[2019-04-14] MEDS ORDERED: Diltiazem HCl SR 60 mg Capsule PO SCH (09:00)
[2019-04-14] MEDS ORDERED: FLU VACC TS2019-20(65YR UP)/PF 180 MCG/0.5 ML SYRINGE IM ONE (09:00)
[2019-04-14] MEDS ORDERED: Prevnar 13-Val Conj/PF 0.5 ML SYRINGE IM ONE (09:00)
--- NOTE | 2019-04-14 14:48 | PDOC.HOSPP ---
- Subjective Subjective: Seen and examined. Patient sitting upright in bed, breathing comfortably on room air. She is slow to answer questions though answering all appropriately. Patient with bladder infection responding to current antibiotics with downtrend of WBC count from 15,000 to 11,000 on ceftriaxone. Patient has no acute complaints this a.m. - Objective Vital Signs & Weight: Vital Signs (12 hours) Temp Pulse Resp BP Pulse Ox 04/14/19 08:08 72 04/14/19 08:00 98 04/14/19 07:58 99.3 F 68 18 124/72 98 04/14/19 04:00 98.5 F 72 20 128/72 99 Weight Admit Weight 248 lb 0.321 oz Weight 248 lb 0.321 oz I&O: 04/13/19 04/14/19 04/15/19 06:59 06:59 06:59 Intake Total 300 480 Balance 300 480 Result Diagrams: 04/14/19 05:24 04/14/19 05:24 Radiology Reviewed by me: Yes Hospitalist ROS - Review of Systems All other systems reviewed; all pertinent +/- noted in HPI/Subj - Medication Medications: Active Medications Generic Name Dose Route Start Last Admin Trade Name Freq PRN Reason Stop Dose Admin Acyclovir 400 mg 04/14/19 09:00 04/14/19 08:11 Zovirax PO 400 mg BID PRISCILLA Administration Aspirin 325 mg 04/14/19 08:00 04/14/19 08:07 Aspirin PO 325 mg QAM- PRISCILLA Administration Cholecalciferol 5,000 units 04/14/19 09:00 04/14/19 08:07 Vitamin D3 PO 5,000 units DAILY PRISCILLA Administration Diltiazem HCl 120 mg 04/14/19 09:00 04/14/19 08:08 Cardizem Cd PO 120 mg DAILY PRISCILLA Administration Enoxaparin Sodium 40 mg 04/14/19 09:00 04/14/19 08:07 Lovenox SC 40 mg 0900 PRISCILLA Administration Fluticasone Propionate 0 gm 04/14/19 09:00 04/14/19 08:11 Flonase Nasal [place] NASAL 2 spr DAILY PRISCILLA Administration Memantine 5 mg 04/14/19 09:00 04/14/19 08:08 Namenda PO 5 mg DAILY PRISCILLA Administration Pantoprazole Sodium 40 mg 04/14/19 09:00 04/14/19 08:08 Protonix PO 40 mg DAILY PRISCILLA Administration Polyethylene Glycol 17 gm 04/14/19 09:00 04/14/19 08:07 Miralax PO 17 gm DAILY PRISCILLA Administration - Exam General Appearance: NAD, awake alert Eye: anicteric sclera ENT: normocephalic atraumatic, moist mucosa Neck: supple, symmetric, no lymphadenopathy Heart: RRR, no murmur, normal peripheral pulses Respiratory: CTAB, no wheezes, no rales, no ronchi Gastrointestinal: soft, non-tender, no guarding, no rigidity Extremities: no edema Skin: no lesions, no rashes Neurological: cranial nerve grossly intact, no weakness Musculoskeletal: generalized weakness Psychiatric: normal behavior, A&O x 3, flat affect Hosp A/P (1) UTI (urinary tract infection) Status: Acute (2) Afib Code(s): I48.91 - UNSPECIFIED ATRIAL FIBRILLATION Status: Chronic Qualifiers: Atrial fibrillation type: paroxysmal Qualified Code(s): I48.0 - Paroxysmal atrial fibrillation (3) Alzheimer disease Code(s): G30.9 - ALZHEIMER'S DISEASE, UNSPECIFIED; F02.80 - DEMENTIA IN OTH DISEASES CLASSD ELSWHR W/O BEHAVRL DISTURB Status: Chronic Qualifiers: Alzheimer's disease onset: unspecified onset (4) Chronic venous stasis Code(s): I87.8 - OTHER SPECIFIED DISORDERS OF VEINS Status: Chronic (5) Dyslipidemia Code(s): E78.5 - HYPERLIPIDEMIA, UNSPECIFIED Status: Chronic (6) H/O: CVA (cerebrovascular accident) Code(s): Z86.73 - PRSNL HX OF TIA (TIA), AND CEREB INFRC W/O RESID DEFICITS Status: Chronic (7) HTN (hypertension) Code(s): I10 - ESSENTIAL (PRIMARY) HYPERTENSION Status: Chronic Qualifiers: Hypertension type: essential hypertension Qualified Code(s): I10 - Essential (primary) hypertension (8) Status post total left knee replacement Code(s): Z96.652 - PRESENCE OF LEFT ARTIFICIAL KNEE JOINT Status: Chronic - Plan Plan: medical unit IV antibiotics blood culture urine culture De escalate to culture and sensitivity as able continue other home medications as able blood pressure control blood sugar control Jorge Luis prophylaxis DVT prophylaxis
[2019-04-14] MEDS: Donepezil HCl 5 MG TAB PO SCH (20:49)
[2019-04-14] MEDS: cefTRIAXone\\ROCEPHIN 1 GM in Sodium Chloride 0.9% 100 ML IVPB SCH (20:49)
[2019-04-14] MEDS: Melatonin 3 MG TAB PO SCH (20:49)
[2019-04-14] MEDS: Atorvastatin Calcium 20 MG TAB PO SCH (20:49)
[2019-04-15 06:02] LABS: #Basophils 0.1 thou/uL (0.0-0.2); #Eosinphils 0.5 thou/uL (0.0-0.7); #Monocytes 0.9 thou/uL (0.11-0.59); #Neutrophils 6.8 thou/uL (1.40-6.50); %Basophils 0.6 % (0.0-1.0); %Eosinophils 5.4 % (0.0-10.0); %Lymphocytes 10.7 % (21.0-51.0); %Monocytes 10.1 % (0.0-10.0); %Neutrophils 73.2 % (42.0-75.0); Hemoglobin 10.7 g/dL (12.0-16.0); Mean Corpuscular HGB CONC 30.1 g/dL (32.0-36.0); Mean Corpuscular Hemoglobin 27.4 pg (27.0-31.0); Mean Corpuscular Volume 91.1 fL (78.0-98.0); Mean Platelet Volume 9.1 fL (7.4-10.4); Platelet Count 114 thou/uL (130-400); RBC Distribution Width 14.3 % (11.5-14.5); Red Blood Cell (RBC) Count 3.91 mill/uL (4.20-5.40); White Blood Cell (WBC) Count 9.3 thou/uL (4.8-10.8)
[2019-04-15 06:20] LABS: Anion Gap 13 mmol/L (10-20); BUN (Urea Nitrogen) 19 mg/dL (9.8-20.1); Calc. Creatinine Clearance 73 mL/min (70-130); Carbon Dioxide 22 mmol/L (23-31); Chloride 107 mmol/L (98-107); Estimated GFR-MDRD 47; Glucose 105 mg/dL (83-110); Potassium 4.3 mmol/L (3.5-5.1); Sodium 138 mmol/L (136-145)
[2019-04-15] MEDS: Aspirin 325 MG TAB PO SCH (08:22)
[2019-04-15] MEDS: Acyclovir 400 mg Tablet PO SCH ×2 (08:22→20:41)
[2019-04-15] MEDS: Enoxaparin Sodium 40 MG/0.4 ML SYRINGE SC SCH (08:23)
[2019-04-15] MEDS: Fluticasone Propionate Nasal Spray 16 gm Bottle NASAL SCH (08:23)
[2019-04-15] MEDS: Polyethylene Glycol 3350 17 GM Packet PO SCH (08:24)
--- NOTE | 2019-04-15 11:14 | PDOC.HOSPP ---
- Subjective Subjective: Seen and examined. No acute complaints this morning. Slept well. Breathing comfortably on room air. Patient's mentation is alert and oriented times three and she has fair insight into a clinical condition. She is faster to answer questions today as infection is resolving. Patient will need to work with physical therapy and occupational therapy and may benefit from subacute placement. - Objective Vital Signs & Weight: Vital Signs (12 hours) Temp Pulse Resp BP BP Pulse Ox 04/15/19 08:20 97 04/15/19 07:35 98.4 F 74 16 118/73 97 04/15/19 00:00 98.8 F 64 16 115/57 L 97 Weight Admit Weight 248 lb 0.321 oz Weight 248 lb 0.321 oz I&O: 04/14/19 04/15/19 04/16/19 06:59 06:59 06:59 Intake Total 300 1660 Balance 300 1660 Result Diagrams: 04/15/19 05:49 04/15/19 05:49 Radiology Reviewed by me: Yes Hospitalist ROS - Review of Systems All other systems reviewed; all pertinent +/- noted in HPI/Subj - Medication Medications: Active Medications Generic Name Dose Route Start Last Admin Trade Name Freq PRN Reason Stop Dose Admin Acetaminophen 650 mg 04/13/19 21:40 04/14/19 20:54 Tylenol PO 650 mg Q4H PRN Administration Headache/Fever/Mild Pain (1-3) Acyclovir 400 mg 04/14/19 09:00 04/15/19 08:22 Zovirax PO 400 mg BID PRISCILLA Administration Aspirin 325 mg 04/14/19 08:00 04/15/19 08:22 Aspirin PO 325 mg QAM-WM PRISCILLA Administration Atorvastatin Calcium 20 mg 04/14/19 21:00 04/14/19 20:49 Lipitor PO 20 mg HS PRISCILLA Administration Cholecalciferol 5,000 units 04/14/19 09:00 04/15/19 08:23 Vitamin D3 PO 5,000 units DAILY PRISCILLA Administration Diltiazem HCl 120 mg 04/14/19 09:00 04/15/19 08:22 Cardizem Cd PO 120 mg DAILY PRISCILLA Administration Donepezil HCl 5 mg 04/14/19 21:00 04/14/19 20:49 Aricept PO 5 mg HS PRISCILLA Administration Enoxaparin Sodium 40 mg 04/14/19 09:00 04/15/19 08:23 Lovenox SC Not Given 0900 PRISCILLA Fluticasone Propionate 0 gm 04/14/19 09:00 04/15/19 08:23 Flonase Nasal [place] NASAL 1 spr DAILY PRISCILLA Administration Ceftriaxone Sodium 1 gm/ 100 mls @ 200 mls/hr 04/14/19 21:45 04/14/19 20:49 Sodium Chloride IVPB 04/19/19 22:14 100 mls Q24HR PRISCILLA Administration Melatonin 3 mg 04/14/19 21:00 04/14/19 20:49 Melatonin PO 3 mg HS PRISCILLA Administration Memantine 5 mg 04/14/19 09:00 04/15/19 08:23 Namenda PO 5 mg DAILY PRISCILLA Administration Pantoprazole Sodium 40 mg 04/14/19 09:00 04/15/19 08:22 Protonix PO 40 mg DAILY PRISCILLA Administration Polyethylene Glycol 17 gm 04/14/19 09:00 04/15/19 08:24 Miralax PO 17 gm DAILY PRISCILLA Administration - Exam General Appearance: NAD Eye: PERRL, anicteric sclera ENT: normocephalic atraumatic, moist mucosa Neck: supple, symmetric, no lymphadenopathy Heart: no murmur, no gallops, no rubs Respiratory: CTAB, no wheezes, no rales, no tachypnea Gastrointestinal: soft, non-tender, no guarding, no rigidity Extremities: no edema Skin: no lesions, no rashes Neurological: cranial nerve grossly intact, no focal deficits Musculoskeletal: generalized weakness Psychiatric: normal behavior, A&O x 3, flat affect Hosp A/P (1) UTI (urinary tract infection) Status: Acute (2) Afib Code(s): I48.91 - UNSPECIFIED ATRIAL FIBRILLATION Status: Chronic Qualifiers: Atrial fibrillation type: paroxysmal Qualified Code(s): I48.0 - Paroxysmal atrial fibrillation (3) Alzheimer disease Code(s): G30.9 - ALZHEIMER'S DISEASE, UNSPECIFIED; F02.80 - DEMENTIA IN OTH DISEASES CLASSD ELSWHR W/O BEHAVRL DISTURB Status: Chronic Qualifiers: Alzheimer's disease onset: unspecified onset (4) Chronic venous stasis Code(s): I87.8 - OTHER SPECIFIED DISORDERS OF VEINS Status: Chronic (5) Dyslipidemia Code(s): E78.5 - HYPERLIPIDEMIA, UNSPECIFIED Status: Chronic (6) H/O: CVA (cerebrovascular accident) Code(s): Z86.73 - PRSNL HX OF TIA (TIA), AND CEREB INFRC W/O RESID DEFICITS Status: Chronic (7) HTN (hypertension) Code(s): I10 - ESSENTIAL (PRIMARY) HYPERTENSION Status: Chronic Qualifiers: Hypertension type: essential hypertension Qualified Code(s): I10 - Essential (primary) hypertension (8) Status post total left knee replacement Code(s): Z96.652 - PRESENCE OF LEFT ARTIFICIAL KNEE JOINT Status: Chronic - Plan Plan: medical unit WBC count has normalized on ABX Mentation improved since ABX PT/OT eval and treat - may need subacute placement IV antibiotics blood culture, no growth to date urine culture, no growth to date De escalate to culture and sensitivity as able continue other home medications as able blood pressure control blood sugar control GI prophylaxis DVT prophylaxis
[2019-04-15] MEDS: Donepezil HCl 5 MG TAB PO SCH (20:41)
[2019-04-15] MEDS: Atorvastatin Calcium 20 MG TAB PO SCH (20:41)
[2019-04-15] MEDS: Melatonin 3 MG TAB PO SCH (20:41)
[2019-04-15] MEDS: cefTRIAXone\\ROCEPHIN 1 GM in Sodium Chloride 0.9% 100 ML IVPB SCH (20:41)
[2019-04-16] MEDS: Acyclovir 400 mg Tablet PO SCH ×2 (07:57→21:12)
[2019-04-16] MEDS: Aspirin 325 MG TAB PO SCH (07:57)
[2019-04-16] MEDS: Polyethylene Glycol 3350 17 GM Packet PO SCH (07:59)
[2019-04-16] MEDS: Fluticasone Propionate Nasal Spray 16 gm Bottle NASAL SCH (07:59)
[2019-04-16] MEDS: Enoxaparin Sodium 40 MG/0.4 ML SYRINGE SC SCH (07:59)
--- NOTE | 2019-04-16 15:40 | PDOC.HOSPP ---
- Subjective Encounter Date: 04/16/19 Encounter Time: 08:00 Subjective: awake, feels better no nausea or abd pain says she will work with PT today - Objective Vital Signs & Weight: Vital Signs (12 hours) Temp Pulse Pulse Resp BP Pulse Ox Pulse Ox 04/16/19 09:59 78 97 04/16/19 07:58 78 04/16/19 07:48 98.2 F 78 18 147/72 H 96 Weight Admit Weight 248 lb 0.321 oz Weight 248 lb 0.321 oz I&O: 04/15/19 04/16/19 04/17/19 06:59 06:59 06:59 Intake Total 1660 1070 Balance 1660 1070 Result Diagrams: 04/15/19 05:49 04/15/19 05:49 Hospitalist ROS - Medication Medications: Active Medications Generic Name Dose Route Start Last Admin Trade Name Freq PRN Reason Stop Dose Admin Acetaminophen 650 mg 04/13/19 21:40 04/14/19 20:54 Tylenol PO 650 mg Q4H PRN Administration Headache/Fever/Mild Pain (1-3) Acyclovir 400 mg 04/14/19 09:00 04/16/19 07:57 Zovirax PO 400 mg BID PRISCILLA Administration Aspirin 325 mg 04/14/19 08:00 04/16/19 07:57 Aspirin PO 325 mg QAM-WM PRISCILLA Administration Atorvastatin Calcium 20 mg 04/14/19 21:00 04/15/19 20:41 Lipitor PO 20 mg HS PRISCILLA Administration Cholecalciferol 5,000 units 04/14/19 09:00 04/16/19 07:58 Vitamin D3 PO 5,000 units DAILY PRISCILLA Administration Diltiazem HCl 120 mg 04/14/19 09:00 04/16/19 07:58 Cardizem Cd PO 120 mg DAILY PRISCILLA Administration Donepezil HCl 5 mg 04/14/19 21:00 04/15/19 20:41 Aricept PO 5 mg HS PRISCILLA Administration Enoxaparin Sodium 40 mg 04/14/19 09:00 04/16/19 07:59 Lovenox SC 40 mg 0900 PRISCILLA Administration Fluticasone Propionate 0 gm 04/14/19 09:00 04/16/19 07:59 Flonase Nasal [place] NASAL 1 spr DAILY PRISCILLA Administration Melatonin 3 mg 04/14/19 21:00 04/15/19 20:41 Melatonin PO 3 mg HS PRISCILLA Administration Memantine 5 mg 04/14/19 09:00 04/16/19 07:58 Namenda PO 5 mg DAILY PRISCILLA Administration Pantoprazole Sodium 40 mg 04/14/19 09:00 04/16/19 07:57 Protonix PO 40 mg DAILY PRISCILLA Administration Polyethylene Glycol 17 gm 04/14/19 09:00 04/16/19 07:59 Miralax PO 17 gm DAILY PRISCILLA Administration - Exam General Appearance: NAD, awake alert Eye: PERRL, anicteric sclera ENT: no oropharyngeal lesions, dry oral mucosa Neck: supple, no JVD Heart: RRR, no murmur Respiratory: no wheezes, no rales Gastrointestinal: soft, non-tender, non-distended, normal bowel sounds Extremities: no cyanosis, no edema Neurological: cranial nerve grossly intact, no focal deficits Hosp A/P (1) UTI (urinary tract infection) Status: Acute Qualifiers: Urinary tract infection type: acute cystitis Hematuria presence: without hematuria Qualified Code(s): N30.00 - Acute cystitis without hematuria (2) Afib Code(s): I48.91 - UNSPECIFIED ATRIAL FIBRILLATION Status: Chronic Qualifiers: Atrial fibrillation type: paroxysmal Qualified Code(s): I48.0 - Paroxysmal atrial fibrillation (3) Alzheimer disease Code(s): G30.9 - ALZHEIMER'S DISEASE, UNSPECIFIED; F02.80 - DEMENTIA IN OTH DISEASES CLASSD ELSWHR W/O BEHAVRL DISTURB Status: Chronic Qualifiers: Alzheimer's disease onset: unspecified onset (4) Dyslipidemia Code(s): E78.5 - HYPERLIPIDEMIA, UNSPECIFIED Status: Chronic (5) H/O: CVA (cerebrovascular accident) Code(s): Z86.73 - PRSNL HX OF TIA (TIA), AND CEREB INFRC W/O RESID DEFICITS Status: Chronic (6) HTN (hypertension) Code(s): I10 - ESSENTIAL (PRIMARY) HYPERTENSION Status: Chronic Qualifiers: Hypertension type: essential hypertension Qualified Code(s): I10 - Essential (primary) hypertension (7) Physical deconditioning Code(s): R53.81 - OTHER MALAISE Status: Acute (8) Sepsis Code(s): A41.9 - SEPSIS, UNSPECIFIED ORGANISM Status: Acute Qualifiers: Sepsis type: sepsis due to unspecified organism Sepsis acute organ dysfunction status: without acute organ dysfunction Qualified Code(s): A41.9 - Sepsis, unspecified organism (9) Acute metabolic encephalopathy Code(s): G93.41 - METABOLIC ENCEPHALOPATHY Status: Acute - Plan change to oral cipro cultures have not grown any organism dc plan in am to swing bed wbc down to 9k from 15k with left shift on admission hemostable to ambulate with PT as tolerated continue asp, lipitor, cardizem CD low dose, aricept and namenda. d/w case mgmt encourage po intake
[2019-04-16] MEDS: Melatonin 3 MG TAB PO SCH (21:12)
[2019-04-16] MEDS: Atorvastatin Calcium 20 MG TAB PO SCH (21:12)
[2019-04-16] MEDS: Ciprofloxacin 500 MG TAB PO SCH (21:12)
[2019-04-16] MEDS: Donepezil HCl 5 MG TAB PO SCH (21:12)
[2019-04-17] MEDS: Ciprofloxacin 500 MG TAB PO SCH (05:56)
[2019-04-17] MEDS: Aspirin 325 MG TAB PO SCH (08:07)
[2019-04-17] MEDS: Enoxaparin Sodium 40 MG/0.4 ML SYRINGE SC SCH (08:07)
[2019-04-17] MEDS: Acyclovir 400 mg Tablet PO SCH (08:07)
[2019-04-17] MEDS: Polyethylene Glycol 3350 17 GM Packet PO SCH (08:07)
[2019-04-17 08:31] VITALS: BP 150/84; TEMP 98.5
[2019-04-17] MEDS: Fluticasone Propionate Nasal Spray 16 gm Bottle NASAL SCH (08:47)
--- NOTE | 2019-04-17 15:09 | PDOC.HOSPP ---
- Subjective Encounter Date: 04/17/19 Encounter Time: 08:45 Subjective: not fully oriented but responds well to verbal questions has not eaten her breakfast yet no nausea/abd pain or sob - Objective Vital Signs & Weight: Vital Signs (12 hours) Temp Pulse Resp BP BP Pulse Ox 04/17/19 08:07 79 04/17/19 08:00 98.5 F 81 22 H 115/75 150/84 H 94 L 04/17/19 06:00 98.0 F 79 97 Weight Admit Weight 248 lb 0.321 oz Weight 248 lb 0.321 oz I&O: 04/16/19 04/17/19 04/18/19 06:59 06:59 06:59 Intake Total 1070 1100 Balance 1070 1100 Result Diagrams: 04/15/19 05:49 04/15/19 05:49 Hospitalist ROS - Medication Medications: Active Medications Generic Name Dose Route Start Last Admin Trade Name Freq PRN Reason Stop Dose Admin Acetaminophen 650 mg 04/13/19 21:40 04/14/19 20:54 Tylenol PO 650 mg Q4H PRN Administration Headache/Fever/Mild Pain (1-3) Acyclovir 400 mg 04/14/19 09:00 04/17/19 08:07 Zovirax PO 400 mg BID PRISCILLA Administration Aspirin 325 mg 04/14/19 08:00 04/17/19 08:07 Aspirin PO 325 mg QAM-WM PRISCILLA Administration Atorvastatin Calcium 20 mg 04/14/19 21:00 04/16/19 21:12 Lipitor PO 20 mg HS PRISCILLA Administration Cholecalciferol 5,000 units 04/14/19 09:00 04/17/19 08:07 Vitamin D3 PO 5,000 units DAILY PRISCILLA Administration Ciprofloxacin 500 mg 04/16/19 20:00 04/17/19 05:56 Cipro PO 500 mg 0600,1999 PRISCILLA Administration Diltiazem HCl 120 mg 04/14/19 09:00 04/17/19 08:07 Cardizem Cd PO 120 mg DAILY PRISCILLA Administration Donepezil HCl 5 mg 04/14/19 21:00 04/16/19 21:12 Aricept PO 5 mg HS PRISCILLA Administration Enoxaparin Sodium 40 mg 04/14/19 09:00 04/17/19 08:07 Lovenox SC 40 mg 0900 PRISCILLA Administration Fluticasone Propionate 0 gm 04/14/19 09:00 04/17/19 08:47 Flonase Nasal [place] NASAL Not Given DAILY PRISCILLA Melatonin 3 mg 04/14/19 21:00 04/16/19 21:12 Melatonin PO 3 mg HS PRISCILLA Administration Memantine 5 mg 04/14/19 09:00 04/17/19 08:52 Namenda PO Not Given DAILY PRISCILLA Pantoprazole Sodium 40 mg 04/14/19 09:00 04/17/19 08:07 Protonix PO 40 mg DAILY PRISCILLA Administration Polyethylene Glycol 17 gm 04/14/19 09:00 04/17/19 08:07 Miralax PO 17 gm DAILY PRISCILLA Administration - Exam Eye: PERRL, anicteric sclera ENT: no oropharyngeal lesions, dry oral mucosa Neck: supple, no JVD Heart: RRR, no murmur Respiratory: no wheezes, no rales Gastrointestinal: soft, non-tender, non-distended, normal bowel sounds Extremities: no cyanosis, 1+ LE edema Neurological: cranial nerve grossly intact, no focal deficits Hosp A/P (1) UTI (urinary tract infection) Status: Acute Qualifiers: Urinary tract infection type: acute cystitis Hematuria presence: without hematuria Qualified Code(s): N30.00 - Acute cystitis without hematuria (2) Afib Code(s): I48.91 - UNSPECIFIED ATRIAL FIBRILLATION Status: Chronic Qualifiers: Atrial fibrillation type: paroxysmal Qualified Code(s): I48.0 - Paroxysmal atrial fibrillation (3) Alzheimer disease Code(s): G30.9 - ALZHEIMER'S DISEASE, UNSPECIFIED; F02.80 - DEMENTIA IN OTH DISEASES CLASSD ELSWHR W/O BEHAVRL DISTURB Status: Chronic Qualifiers: Alzheimer's disease onset: unspecified onset (4) Dyslipidemia Code(s): E78.5 - HYPERLIPIDEMIA, UNSPECIFIED Status: Chronic (5) H/O: CVA (cerebrovascular accident) Code(s): Z86.73 - PRSNL HX OF TIA (TIA), AND CEREB INFRC W/O RESID DEFICITS Status: Chronic (6) HTN (hypertension) Code(s): I10 - ESSENTIAL (PRIMARY) HYPERTENSION Status: Chronic Qualifiers: Hypertension type: essential hypertension Qualified Code(s): I10 - Essential (primary) hypertension (7) Physical deconditioning Code(s): R53.81 - OTHER MALAISE Status: Acute (8) Sepsis Code(s): A41.9 - SEPSIS, UNSPECIFIED ORGANISM Status: Resolved Qualifiers: Sepsis type: sepsis due to unspecified organism Sepsis acute organ dysfunction status: without acute organ dysfunction Qualified Code(s): A41.9 - Sepsis, unspecified organism (9) Acute metabolic encephalopathy Code(s): G93.41 - METABOLIC ENCEPHALOPATHY Status: Acute - Plan cipro for uti cultures have not grown any organism dc plan to swing bed, d/w son Mr.Doyle Davis. wbc down to 9k from 15k with left shift on admission hemostable to ambulate with PT as tolerated continue asp, lipitor, cardizem CD low dose, aricept and namenda. d/w case mgmt encourage po intake
--- NOTE | 2019-04-17 17:32 | DIS ---
DATE OF ADMISSION: 04/13/2019 DATE OF DISCHARGE: 04/17/2019 DISCHARGE DISPOSITION: To [facility]. PRIMARY DISCHARGE DIAGNOSES: Acute metabolic encephalopathy with urinary tract infection. SECONDARY DISCHARGE DIAGNOSES: Chronic paroxysmal atrial fibrillation, dementia, dyslipidemia, history of cerebrovascular accident, hypertension, deconditioning, initial sepsis with UTI, resolved. PROCEDURES DONE DURING HOSPITALIZATION: Blood cultures x2, no growth. Urine culture, no growth. Had a white count of 15 on the day of admission with white count of 9.3 on the 2nd. BUN 19, creatinine 1.1. Admitting BUN and creatinine was 27 and 1.5. TSH 2.2. DISCHARGE MEDICATIONS: 1. Acyclovir 400 mg p.o. twice daily. 2. Aspirin 325 mg p.o. daily. 3. Lipitor 20 mg p.o. at bedtime. 4. Cetirizine 10 mg daily. 5. Vitamin D3 5000 units p.o. daily. 6. Cardizem CD 120 mg p.o. daily. 7. Fluticasone nasal spray 2 sprays to each nostril daily. 8. Melatonin 3 mg p.o. at bedtime. 9. Namenda 5 mg p.o. daily. 10. Omeprazole 20 mg p.o. daily. 11. Ciprofloxacin 500 mg p.o. twice daily for a total of 4 days. 12. Aricept 5 mg p.o. at bedtime. 13. MiraLAX 17 g p.o. daily. ALLERGIES: ALLERGIC TO CODEINE AND MORPHINE. DISCHARGE PLAN: The patient to follow up with Dr. Suero in 1 week. BRIEF COURSE DURING HOSPITALIZATION: The patient was initially brought to emergency room for generalized weakness and bilateral lower extremity swelling. She had elevated white count with left shift as well. The patient was placed on broad-spectrum antibiotics. She has underlying dementia and also had acute metabolic encephalopathy. Her urine culture did not grow any organism nor was her blood cultures. The patient is tolerating oral solid diet. She has some moments of confusion and not being oriented at times. The patient responds well to verbal questions even when she is not oriented. She is otherwise hemodynamically stable and will be shortly discharged to swing bed at [place]. Please see a [id number] documentation for the day of discharge on [facility]. A total of 35 minutes was spent on discharge plan. The patient likely will need oral diuresis with either Lasix or Bumex with close monitoring of her renal function. Primary care physician, Dr. Suero, will be following the patient at the Swing Bed. I have given complete updates to the patient's son on the day of discharge. Job ID: [id number]
== END 2019-04-17 17:36 | disposition swing bed (61) | DRG 871 ==
LOC: ERS 12:20 → T4-A 19:39 → OBSVTOIN 21:32
PROVIDERS: ADMIT Internal Medicine; ATTEND Internal Medicine
DX: A41.9 Sepsis, unspecified organism (principal); G93.41 Metabolic encephalopathy; N39.0 Urinary tract infection, site not specified; I48.20 Chronic atrial fibrillation, unspecified; E87.2 Acidosis; F03.90 Unspecified dementia, unspecified severity, without behavioral disturbance, psychotic disturbance, mood disturbance, and anxiety; E78.5 Hyperlipidemia, unspecified; I10 Essential (primary) hypertension; I48.0 Paroxysmal atrial fibrillation; E11.40 Type 2 diabetes mellitus with diabetic neuropathy, unspecified; K21.9 Gastro-esophageal reflux disease without esophagitis; R53.81 Other malaise; Z86.73 Personal history of transient ischemic attack (TIA), and cerebral infarction without residual deficits; Z79.01 Long term (current) use of anticoagulants; Z88.8 Allergy status to other drugs, medicaments and biological substances; Z89.422 Acquired absence of other left toe(s); Z89.421 Acquired absence of other right toe(s)
CPT/HCPCS: 36415; 51701; 71045; 80048; 80053; 81003; 81015; 83605; 83690; 83735; 83880; 84443; 84484; 85025; 87040; 87086; 93005; 96361; 96365; A4353; J0696; J1650; J3490

== ENCOUNTER 2019-05-28 18:37 | Inpatient (IN) | payer MEDICARE ==
[2019-05-28] MEDS ORDERED: Cefepime 2 GM in Sodium Chloride 0.9% 100 ML IVPB SCH (23:15)
[2019-05-28] MEDS ORDERED: Vancomycin 1 GM in Premix Bag 1 BAG IVPB SCH (23:15)
[2019-05-28] MEDS ORDERED: Lactated Ringer's 1,000 ML IV SCH (23:15)
[2019-05-29] MEDS ORDERED: hydrALAZINE 20 MG/ML VIAL SLOW IVP PRN (00:09)
[2019-05-29] MEDS ORDERED: Acetaminophen 325 MG TAB PO PRN (00:09)
[2019-05-29] MEDS: Lactated Ringer's 1,000 ML IV SCH ×2 (00:36→15:57)
[2019-05-29 01:39] VITALS: BMI 35.9
--- NOTE | 2019-05-29 01:58 | HP ---
PRIMARY CARE PHYSICIAN: Dr. Suero. CHIEF COMPLAINT: Fever and weakness. HISTORY OF PRESENT ILLNESS: Extremely limited as the patient has advanced dementia and the family is no longer present. I tried to call the patient's , but the phone rang. I assume they are in transit back home. The patient is a 79-year-old female, who has a history of hypertension and Alzheimer disease and atrial fibrillation. It appears she was recently hospitalized at our facility for urinary tract infection with metabolic encephalopathy. She also has a chronic left heel decubitus, which was treated. She was discharged to [facility] like [place] where she continued with wound care, IV antibiotics and physical therapy. She was released from the hospital there on May 17 about 10 days ago and apparently in the interim, she developed fever and some weakness. It was noted that she was walking at least 90 feet with a walker according to the records from [place]. She was brought to our facility for further evaluation. There is concern that the decubitus ulcer on the left heel has become infected. It is noted that there is an odor coming from the area and her white blood cell count was elevated and she has fever and is being admitted. REVIEW OF SYSTEMS: Unobtainable as the patient is has advanced dementia. PAST MEDICAL HISTORY: Significant for hypertension, Alzheimer disease, spondylosis of the lumbar spine, osteomyelitis of the left great toe, atrial fibrillation, DVT and pulmonary embolism. PAST SURGICAL HISTORY: She has had amputation of the left great toe and then also amputation of the right 5th toe in 2019. She has had cholecystectomy, total abdominal hysterectomy, hemorrhoidectomy, IVC filter placement, rotator cuff repair, bariatric surgery, and stomach stapling and then later taken down, bilateral total knee replacements. ALLERGIES: TO MORPHINE AND CODEINE WELL MELOXICAM, WHICH CAUSES STOMACH UPSET AND MECLIZINE WHICH TENDS TO MAKE VERTIGO WORSE. SOCIAL HISTORY: She is . She is a non smoker, nondrinker. Her code status is reported as full code. FAMILY HISTORY: Unobtainable. MEDICATIONS: Taken from the electronic records and these will need to be verified, but include: 1. Acyclovir 400 mg twice daily. 2. Aspirin 325 mg daily. 3. Lipitor 20 mg at bedtime. 4. Zyrtec 10 mg daily. 5. Vitamin D3 5000 units daily. 6. Diltiazem extended release 120 mg daily. 7. Flonase nasal spray. 8. Melatonin 3 mg at bedtime. 9. Omeprazole 20 mg daily. 10. Tylenol 650 mg as needed. 11. Aricept 5 mg at bedtime. 12. Namenda 10 mg twice daily. 13. Zoloft 25 mg daily. PHYSICAL EXAMINATION: GENERAL: She is oriented to person and she does know she is in the hospital, but when asked with the year, she says it is 2039 and when you ask her what month it is, she just says it is number 4. She is well developed and well nourished. VITAL SIGNS: Blood pressure was 141/68, heart rate 67, respiratory rate of 16, and currently afebrile. HEENT: Pupils are equal, round, and reactive to light. Extraocular muscles are intact. Her sclerae are anicteric. Throat, no erythema, no exudates. NECK: No adenopathy. No bruits. LUNGS: Clear to auscultation. There is no wheezing, no rales, no rhonchi. CARDIOVASCULAR: She has a normal S1, S2. I did not appreciate an S3 or S4. No murmurs, clicks, no rubs. ABDOMEN: Soft, obese, nontender, and nondistended. Positive for bowel sounds. No rebound. No guarding. No organomegaly. EXTREMITIES: She has approximately 2+ pitting edema, left more than right. No calf tenderness. No joint effusions. NEUROLOGIC: She is moving all extremities. SKIN AND INTEGUMENT: On the medial aspect of the left foot, on the left heel, there is approximately quarter-sized area of a stage II decubitus. It has a darkish color and again there is some odor. Her dorsalis pedis pulse is palpable, but thready as well as the posterior tibial on the left foot. It is a little bit stronger on the right, but still diminished. The capillary refill however is intact. There is no discoloration of the feet and there are noted the amputations of both of the 1st toes on both feet and the 5th toe on the right foot. LABORATORY DATA: The white blood cell count is 16.9, hemoglobin 11, hematocrit is 37.1, and platelet count was 220. Sodium is 142, potassium 3.5, chloride is 107, CO2 is 22, BUN of 13, creatinine of 1.02, glucose is 143. Urinalysis was essentially negative. IMAGING: The chest x-ray is poorly penetrated. The heart size is noted to be on the upper limit of normal. She has an elevation of the right hemidiaphragm, but no infiltrates that is by my reading. X-ray of the foot was reported as no evidence of osteomyelitis. ASSESSMENT: Ms. Davis is a pleasant 79-year-old female, who was brought to the hospital due to concern for an infected decubitus ulcer on the left heel. She does have an elevated white blood cell count as well as some swelling and erythema around the ulcer. She will be admitted to the medical floor, started on IV antibiotics. We will consult her senior sales operations analyst, Dr. Ballesteros, for local debridement. We will also get a wound care consult and consider ID consult since this has been a chronic ongoing problem. We will also get lower extremity arterial Dopplers, if this has not yet been done to assess her circulation. 1. Hypertension. We will need to reconcile and restart her home medications as well as p.r.n. medicines as needed. 2. Atrial fibrillation. She is currently appears to be in sinus rhythm and her heart rate is stable and it does not appear that she is on anticoagulation. 3. History of deep venous thrombosis and pulmonary embolism. Once again, she does not appear to be on anticoagulation. She does have an IVC filter. Therefore, we will place her on just general deep venous thrombosis prophylaxis at this time. Job ID: [id number]
[2019-05-29] MEDS ORDERED: Vancomycin 1 GM in Premix Bag 1 BAG IVPB SCH ×2 (02:00→05:00)
[2019-05-29 05:59] LABS: #Eosinphils 0.2 thou/uL (0.0-0.7); #Lymphocytes 0.6 thou/uL (1.20-3.40); #Neutrophils 9.1 thou/uL (1.40-6.50); %Basophils 0.2 % (0.0-1.0); %Lymphocytes 5.2 % (21.0-51.0); %Monocytes 9.3 % (0.0-10.0); %Neutrophils 83.3 % (42.0-75.0); Hemoglobin 10.1 g/dL (12.0-16.0); Mean Corpuscular HGB CONC 32.2 g/dL (32.0-36.0); Mean Corpuscular Hemoglobin 29.8 pg (27.0-31.0); Mean Corpuscular Volume 92.7 fL (78.0-98.0); Mean Platelet Volume 8.3 fL (7.4-10.4); Platelet Count 200 thou/uL (130-400); RBC Distribution Width 15.6 % (11.5-14.5); Red Blood Cell (RBC) Count 3.38 mill/uL (4.20-5.40); White Blood Cell (WBC) Count 10.9 thou/uL (4.8-10.8)
[2019-05-29 06:26] LABS: Anion Gap 12 mmol/L (10-20); BUN (Urea Nitrogen) 10 mg/dL (9.8-20.1); Calc. Creatinine Clearance 87 mL/min (70-130); Calcium 8.4 mg/dL (7.8-10.44); Carbon Dioxide 23 mmol/L (23-31); Chloride 109 mmol/L (98-107); Estimated GFR-MDRD 57; Glucose 94 mg/dL (83-110); Potassium 3.2 mmol/L (3.5-5.1); Sodium 141 mmol/L (136-145)
[2019-05-29] MEDS ORDERED: Cefepime 1 GM in Sodium Chloride 0.9% 100 ML IVPB SCH ×2 (09:00→12:00)
[2019-05-29] MEDS: Aspirin 325 MG TAB PO SCH (09:06)
[2019-05-29] MEDS: Acyclovir 400 mg Tablet PO SCH ×2 (09:07→21:55)
[2019-05-29] MEDS: Saccharomyces boulardii 250 MG CAP PO SCH (09:07)
[2019-05-29] MEDS: Enoxaparin Sodium 40 MG/0.4 ML SYRINGE SC SCH (09:07)
[2019-05-29] MEDS: Famotidine 20 MG TAB PO SCH ×2 (09:07→22:04)
[2019-05-29] MEDS: Loratadine 10 MG TAB PO SCH (09:07)
[2019-05-29] MEDS: Vancomycin HCl 25 MG/ML Oral PO SCH ×3 (10:34→19:27)
--- NOTE | 2019-05-29 12:25 | PDOC.HOSPP ---
- Subjective Encounter Date: 05/29/19 Encounter Time: 08:30 Subjective: feels better, no complaints is eating her breakfast - Objective Vital Signs & Weight: Vital Signs (12 hours) Temp Pulse Resp BP BP BP Pulse Ox 05/29/19 11:16 97.4 F L 64 16 118/74 95 05/29/19 09:57 173/80 H 05/29/19 09:06 66 129/75 05/29/19 08:00 96 05/29/19 07:21 97.4 F L 66 18 129/75 96 05/29/19 03:50 98.8 F 67 20 146/71 H 94 L Weight Weight 250 lb 4.8 oz Result Diagrams: 05/29/19 05:43 05/29/19 05:43 Hospitalist ROS - Medication Medications: Active Medications Generic Name Dose Route Start Last Admin Trade Name Freq PRN Reason Stop Dose Admin Acyclovir 400 mg 05/29/19 09:00 05/29/19 09:07 Zovirax PO 400 mg BID PRISCILLA Administration Aspirin 325 mg 05/29/19 09:00 05/29/19 09:06 Aspirin PO 325 mg DAILY PRISCILLA Administration Diltiazem HCl 120 mg 05/29/19 09:00 05/29/19 09:06 Cardizem Cd PO 120 mg DAILY PRISCILLA Administration Enoxaparin Sodium 40 mg 05/29/19 09:00 05/29/19 09:07 Lovenox SC 40 mg 0900 PRISCILLA Administration Famotidine 20 mg 05/29/19 09:00 05/29/19 09:07 Pepcid PO 20 mg BID PRISCILLA Administration Lactated Ringer's 1,000 mls @ 75 mls/hr 05/29/19 00:30 05/29/19 00:36 Lactated Ringer's IV Not Given .[id number] PRISCILLA Cefepime HCl 1 gm/ Sodium 100 mls @ 200 mls/hr 05/29/19 12:00 05/29/19 12:17 Chloride IVPB 100 mls 1200,2359 PRISCILLA Administration Vancomycin HCl 1 gm/ Device 200 mls @ 200 mls/hr 05/29/19 05:00 05/29/19 05: 46 IVPB 200 mls 0500,1700 PRISCILLA Administration Loratadine 10 mg 05/29/19 09:00 05/29/19 09:07 Claritin PO 10 mg DAILY PRISCILLA Administration Saccharomyces Boulardii 250 mg 05/29/19 09:00 05/29/19 09:07 Florastor PO 250 mg DAILY PRISCILLA Administration Sertraline HCl 25 mg 05/29/19 09:00 05/29/19 09:07 Zoloft PO 25 mg DAILY PRISCILLA Administration Vancomycin HCl 125 mg 05/29/19 09:00 05/29/19 10:34 First Vancomycin PO 125 mg 0300,0900,1500,2100 PRISCILLA Administration - Exam General Appearance: awake alert Eye: PERRL, anicteric sclera ENT: no oropharyngeal lesions, moist mucosa Neck: supple, no JVD Heart: RRR, no murmur Respiratory: no wheezes, no rales Gastrointestinal: soft, non-tender, non-distended, normal bowel sounds Extremities: no cyanosis, no edema Extremities - other findings: left heel in dressing Neurological: cranial nerve grossly intact, no focal deficits Hosp A/P (1) Osteomyelitis Code(s): M86.9 - OSTEOMYELITIS, UNSPECIFIED Status: Suspected Qualifiers: Osteomyelitis type: subacute Osteomyelitis location: foot Laterality: left Qualified Code(s): M86.272 - Subacute osteomyelitis, left ankle and foot (2) Ulcer of left heel Code(s): L97.429 - NON-PRS CHRONIC ULCER OF LEFT HEEL AND MIDFOOT W UNSP SEVERT Status: Acute (3) H/O deep venous thrombosis Code(s): Z86.718 - PERSONAL HISTORY OF OTHER VENOUS THROMBOSIS AND EMBOLISM Status: Chronic (4) Afib Code(s): I48.91 - UNSPECIFIED ATRIAL FIBRILLATION Status: Chronic Qualifiers: Atrial fibrillation type: paroxysmal (5) Alzheimer disease Code(s): G30.9 - ALZHEIMER'S DISEASE, UNSPECIFIED; F02.80 - DEMENTIA IN OTH DISEASES CLASSD ELSWHR W/O BEHAVRL DISTURB Status: Chronic Qualifiers: Alzheimer's disease onset: unspecified onset Dementia behavioral disturbance: without behavioral disturbance Qualified Code(s): G30.9 - Alzheimer's disease, unspecified; F02.80 - Dementia in other diseases classified elsewhere without behavioral disturbance (6) Chronic venous stasis Code(s): I87.8 - OTHER SPECIFIED DISORDERS OF VEINS Status: Chronic (7) Dyslipidemia Code(s): E78.5 - HYPERLIPIDEMIA, UNSPECIFIED Status: Chronic (8) H/O: CVA (cerebrovascular accident) Code(s): Z86.73 - PRSNL HX OF TIA (TIA), AND CEREB INFRC W/O RESID DEFICITS Status: Chronic (9) HTN (hypertension) Code(s): I10 - ESSENTIAL (PRIMARY) HYPERTENSION Status: Chronic Qualifiers: (10) Sepsis Code(s): A41.9 - SEPSIS, UNSPECIFIED ORGANISM Status: Acute Qualifiers: - Plan is on vanc and cefepime, wound care, podiatry consultation continue asp, lipitor, cardizem Cd, aricept, namenda and zoloft PT to mobilize as tolerated hemostable
[2019-05-29] MEDS ORDERED: Vancomycin HCl 25 MG/ML Oral PO SCH (15:29)
--- NOTE | 2019-05-29 16:59 | CON ---
DATE OF CONSULTATION: REASON FOR CONSULTATION: Fever and foot ulcer. HISTORY OF PRESENT ILLNESS: A 79-year-old with history of hypertension, prior deep vein thrombosis with IVC filter, prior pulmonary embolism and neuropathy of unclear etiology who has had complications in the right and left feet, which have led to amputations of the left first and right fifth toes. At this time she was brought in because of worsening ulceration of the left heel with concern for inflammatory changes and odor. On April 11, she was brought to the emergency room because of weakness and dizziness. On arrival, her BP was 80 to 90 systolic. She was diagnosed with urinary tract infection causing the abnormalities although a urine culture was no growth at 48 hours. She was discharged on Bactrim oral. She came back to the emergency room 2 days later with persistence of weakness and edema in both lower extremities. Her temperature was normal, O2 saturations were 99%, pulse 80, blood pressure 108/60. The exam showed decreased motor strength in all four appendicular structures. No skin abnormalities were noted. The patient was admitted with the evaluation during the hospital stay identifying atrial fibrillation, dementia, metabolic encephalopathy with urinary tract infection, and she was transferred to [facility] on acyclovir, Lipitor, cetirizine, Cardizem, fluticasone, melatonin, Namenda, and ciprofloxacin. None of the urine culture submitted around this time demonstrated positive results and the urinalysis had small amounts of neutrophils, so I do not believe the diagnosis of urinary tract infection was confirmed. In [place], patient developed diarrhea and a C difficile test was positive for both antigen and toxin. She was started on oral vancomycin 125 mg 4 times daily on May 10, expected to continue for 10 day course. She was transferred back to her family home with home health and now she is brought back to this hospital because of again weakness and temperature max 102 and concern for left calcaneus ulcer. Because of cognitive impairment, it was difficult to rely on patient's own account. Regarding her review of systems, at the moment, she is awake and she knows her name. She knew she was in the hospital, but could not tell me the name of the hospital or the date. She did follow commands, but basically denied that she was having any pain anywhere. Also denied diarrhea, which she actually had diarrhea, so I think that her personal account is not reliable. PAST MEDICAL HISTORY: Includes neuropathy of unclear etiology, dementia, possibly vascular dementia in view of the atrial fibrillation identified, a prior DVT with pulmonary embolism with vena cava filter and complications related to neuropathy in lower extremities with amputations of toes in the right and left foot and chronic heel ulcer on the left side. SOCIAL HISTORY: She never smoked in her life. Lives with family. FAMILY HISTORY: Noncontributory. ALLERGIES: MORPHINE AND CODEINE. CURRENT MEDICATIONS: Includes 1. Zovirax. 2. Cefepime. 3. Diltiazem. 4. Donepezil. 5. Lovenox. 6. Pepcid. 7. Fluticasone. 8. Claritin. 9. Melatonin. 10. Namenda. 11. Vancomycin. PHYSICAL EXAMINATION: VITAL SIGNS: She has been afebrile here in the hospital. BP 118/74, pulse 64, respirations 16, and O2 saturation 95%. GENERAL: She is awake. She has mobility impairment and she has this ulcer in the medial aspect of the left heel which has been debrided at the bedside by Dr. Mcqueen. This ulcer is round shaped, about 2 cm in diameter with a sort of dark red tissue at the base. No undermining. No erythema noted around the ulcer. I tried to probe with a Q-tip, but was not able to demonstrate any communication with any underlying bone. The patient has a peripheral IV access and voids in the diaper. No lymphadenopathy. HEENT: Ocular movements conjugate. Sclerae are white. Conjunctivae somewhat pale. Oral cavity is not remarkable. NECK: Supple. No jugular vein distention. LUNGS: Symmetric, clear breath sounds. HEART: S1 and S2. Regular rate. No S3 or S4. ABDOMEN: Not distended, not tender. Bowel sounds are normal. No bladder distention. EXTREMITIES: She is able to move extremities on command, but she is not able to lift the knees from the bed. Plantar responses are flexor. No clonus. Pulses 1+ in dorsalis pedis. NEUROLOGIC: Cognitive function is limited. The patient has poor recollection of events. Her review of systems is not reliable. She does know her name, but she really has a hard time in remembering it and could not tell me the name of the hospital she is in. LABORATORY DATA: The white cell count is 10.9, hemoglobin 10.1, platelets 200 with 83% neutrophils. Sodium 141, creatinine 0.94. Microbiology with no growth in urine culture 12 hours. Blood culture, no growth thus far two sets. Positive C diff test. IMAGING: Foot x-ray with no definite radiographic evidence of osteomyelitis. Soft tissue ulceration along the plantar aspect of left heel. Chest x-ray with no evidence of acute cardiopulmonary disease. ASSESSMENT: 1. Atrial fibrillation, cognitive impairment, probably due to vascular dementia, neuropathy of unclear etiology with complications in right and left feet. 2. Chronic heel ulcer, left side, medial aspect. 3. Fever. 4. Recently diagnosed Clostridium difficile colitis. DISCUSSION: The differential diagnosis includes persistence of C difficile infection with inflammatory changes related to it versus transient bacteremia associated with the heel ulcer. A respiratory tract infection is not apparent, but will be checked with respiratory virus PCR if not done yet. If the blood cultures and urine culture remain negative, I would discontinue the antimicrobial therapy, I do not believe she needs an MRI of the left heel at this point in time, although it might become necessary later on, depending on clinical progress. The matter of the C difficile will have to continue to be treated. I would increase the dose to 250 mg q.6 hours of oral vancomycin and then implement a taper after the original treatment course is completed. Job ID: [id number] MTDD
[2019-05-29] MEDS: Atorvastatin Calcium 40 MG TAB PO SCH (21:55)
[2019-05-29] MEDS: Donepezil HCl 10 MG TAB PO SCH (22:01)
[2019-05-29] MEDS: Melatonin 3 MG TAB PO SCH (22:04)
[2019-05-29] MEDS: Fluticasone Propionate Nasal Spray 16 gm Bottle NASAL SCH (22:05)
[2019-05-30] MEDS: Lactated Ringer's 1,000 ML IV SCH (00:30)
[2019-05-30] MEDS: Vancomycin HCl 25 MG/ML Oral PO SCH ×5 (01:18→23:48)
--- NOTE | 2019-05-30 08:07 | CON ---
DATE OF CONSULTATION: LOCATION: She is room [facility]14 in the [facility]. HISTORY OF PRESENT ILLNESS: The patient is a 79-year-old female, admitted to [facility] for altered mental status and decubitus ulceration on the left heel with possible osteomyelitis. The wound has been present for an unknown period of time. The patient is high risk due to history of peripheral neuropathy. Currently, resting well, in no apparent distress, good appetite. PAST MEDICAL HISTORY: Includes peripheral neuropathy, hypertension, and osteoarthritis. MEDICATIONS: Noted in chart. ALLERGIES: CODEINE. SOCIAL HISTORY: Denies alcohol and tobacco use. FAMILY HISTORY: No diabetes. REVIEW OF SYSTEMS: Noted in chart. PHYSICAL EXAMINATION: Lower extremity physical examination: VASCULAR STATUS: Dorsalis pedis and posterior tibial pulses were 2/4 bilaterally. Cap refill time was approximately 3 seconds digits 1 through 5 bilaterally. Positive warm skin noted distal to proximal. Reduced hair growth. Skin changes evident to bilateral lower extremities include shiny atrophic skin and thinning skin. NEUROLOGIC: Loss of protective threshold bilaterally with 5.07 [place] monofilament wire. Positive paresthesia and numbness subjectively. MUSCULOSKELETAL: Reveals 5/5 muscle grading. Stiffness on range of motion. Ambulatory with assistance. DERMATOLOGICAL: Reveals a 5 x approximately 4 cm decubitus full-thickness subcutaneous ulceration on the medial plantar aspect of the left heel. The ulcer has a fibrotic, nonviable, darkish eschar base, soft in nature with underlying granular tissue. Good viable bleeding with sharp debridement. No bacterial signs of infection. Cha-marginal border shows callus, hyperkeratotic skin build-up. No tunnelling noted to deeper tissue. Minimal fibrotic smell. Minimal serous drainage on exam. ASSESSMENT AND PLAN: 1. Peripheral neuropathy, bilateral lower extremities. 2. Decubitus ulcer, left heel. The son and I with nurse present discussed the diagnoses and treatment options. Using sharp instrumentation, the ulcer was debrided of all nonviable callus and fibrotic tissue to a good viable bleeding base. With a 15 blade, sharp debridement was performed. Good ulcer bleeding was noted at subcutaneous . The wound at this time was flushed and irrigated with saline solution. Bactroban and a temporary dressing were applied. Wound Care inhouse [facility] Team has been consulted. I wrote wound care orders consisting of cleansing the ulcer every day with wound cleanser; applying Santyl ointment, calcium alginate, and a foam dressing every day until healed. I recommended a heel protector to off-load the left heel at bedrest. A CAM walking boot was ordered for the patient to use for ambulation to off-load the left heel, specifically for physical therapy rehab. Consultations were made for Home Health Care per social skilled nursing case manager for the patient once discharged to have wound care for left heel. Dr. Baum has been consulted by hospital group for evaluation and treatment of the patient. She is currently on cefepime and vancomycin IV antibiotics at this time inhouse. The patient will follow with me 1 week from discharge from the hospital. This was made imperative to the son, so we can take serial x-rays in the future to rule out osteomyelitis, not noted on initial x-rays taken on May 27, which were negative for osteo. Impressions with x-rays showed soft tissue ulceration only. If you have any questions or concerns, please call me at [phone] or my cell phone is [phone]. Job ID: [id number]
[2019-05-30] MEDS: Saccharomyces boulardii 250 MG CAP PO SCH (09:21)
[2019-05-30] MEDS: Loratadine 10 MG TAB PO SCH (09:21)
[2019-05-30] MEDS: Aspirin 325 MG TAB PO SCH (09:21)
[2019-05-30] MEDS: Acyclovir 400 mg Tablet PO SCH ×2 (09:21→20:49)
[2019-05-30] MEDS: Enoxaparin Sodium 40 MG/0.4 ML SYRINGE SC SCH (09:22)
[2019-05-30] MEDS: Famotidine 20 MG TAB PO SCH ×2 (09:22→20:49)
--- NOTE | 2019-05-30 14:23 | PDOC.HOSPP ---
- Subjective Encounter Date: 05/30/19 Encounter Time: 11:45 Subjective: awake, no sob or pain no abd pain or nausea says she is not hungry - Objective Vital Signs & Weight: Vital Signs (12 hours) Temp Pulse Resp BP BP Pulse Ox 05/30/19 11:01 98.0 F 58 L 22 H 131/83 96 05/30/19 09:21 59 L 157/68 H 05/30/19 09:00 93 L 05/30/19 08:00 97.9 F 59 L 24 H 157/68 H 93 L Weight Admit Weight 250 lb 4.8 oz Weight 250 lb 4.8 oz I&O: 05/29/19 05/30/19 05/31/19 06:59 06:59 06:59 Intake Total 1102 Balance 1102 Result Diagrams: 05/29/19 05:43 05/29/19 05:43 Hospitalist ROS - Medication Medications: Active Medications Generic Name Dose Route Start Last Admin Trade Name Freq PRN Reason Stop Dose Admin Acyclovir 400 mg 05/29/19 09:00 05/30/19 09:21 Zovirax PO 400 mg BID PRISCILLA Administration Aspirin 325 mg 05/29/19 09:00 05/30/19 09:21 Aspirin PO 325 mg DAILY PRISCILLA Administration Atorvastatin Calcium 20 mg 05/29/19 21:00 05/29/19 21:55 Lipitor PO 20 mg HS PRISCILLA Administration Diltiazem HCl 120 mg 05/29/19 09:00 05/30/19 09:21 Cardizem Cd PO 120 mg DAILY PRISCILLA Administration Donepezil HCl 5 mg 05/29/19 21:00 05/29/19 22:01 Aricept PO 5 mg HS PRISCILLA Administration Enoxaparin Sodium 40 mg 05/29/19 09:00 05/30/19 09:22 Lovenox SC 40 mg 0900 PRISCILLA Administration Famotidine 20 mg 05/29/19 09:00 05/30/19 09:22 Pepcid PO 20 mg BID PRISCILLA Administration Fluticasone Propionate 0 gm 05/29/19 21:00 05/29/19 22:05 Flonase Nasal [place] NASAL 2 spr HS PRISCILLA Administration Loratadine 10 mg 05/29/19 09:00 05/30/19 09:21 Claritin PO 10 mg DAILY PRISCILLA Administration Melatonin 3 mg 05/29/19 21:00 05/29/19 22:04 Melatonin PO 3 mg HS PRISCILLA Administration Memantine 10 mg 05/29/19 21:00 05/29/19 22:04 Namenda PO 10 mg HS PRISCILLA Administration Saccharomyces Boulardii 250 mg 05/29/19 09:00 05/30/19 09:21 Florastor PO 250 mg DAILY PRISCILLA Administration Sertraline HCl 25 mg 05/29/19 09:00 05/30/19 09:21 Zoloft PO 25 mg DAILY PRISCILLA Administration Vancomycin HCl 250 mg 05/29/19 18:00 05/30/19 11:49 First Vancomycin PO 250 mg Q6HR PRISCILLA Administration - Exam General Appearance: awake alert Eye: PERRL, anicteric sclera ENT: no oropharyngeal lesions, moist mucosa Neck: supple, no JVD Heart: RRR, no murmur Respiratory: no wheezes, no rales Gastrointestinal: soft, non-tender, non-distended, normal bowel sounds Extremities: no cyanosis, no edema Extremities - other findings: right heel in dressing Neurological: cranial nerve grossly intact, no focal deficits Hosp A/P (1) Ulcer of left heel Code(s): L97.429 - NON-PRS CHRONIC ULCER OF LEFT HEEL AND MIDFOOT W UNSP SEVERT Status: Acute (2) H/O deep venous thrombosis Code(s): Z86.718 - PERSONAL HISTORY OF OTHER VENOUS THROMBOSIS AND EMBOLISM Status: Chronic (3) Afib Code(s): I48.91 - UNSPECIFIED ATRIAL FIBRILLATION Status: Chronic Qualifiers: Atrial fibrillation type: paroxysmal (4) Alzheimer disease Code(s): G30.9 - ALZHEIMER'S DISEASE, UNSPECIFIED; F02.80 - DEMENTIA IN OTH DISEASES CLASSD ELSWHR W/O BEHAVRL DISTURB Status: Chronic Qualifiers: Alzheimer's disease onset: unspecified onset Dementia behavioral disturbance: without behavioral disturbance Qualified Code(s): G30.9 - Alzheimer's disease, unspecified; F02.80 - Dementia in other diseases classified elsewhere without behavioral disturbance (5) Chronic venous stasis Code(s): I87.8 - OTHER SPECIFIED DISORDERS OF VEINS Status: Chronic (6) Dyslipidemia Code(s): E78.5 - HYPERLIPIDEMIA, UNSPECIFIED Status: Chronic (7) H/O: CVA (cerebrovascular accident) Code(s): Z86.73 - PRSNL HX OF TIA (TIA), AND CEREB INFRC W/O RESID DEFICITS Status: Chronic (8) HTN (hypertension) Code(s): I10 - ESSENTIAL (PRIMARY) HYPERTENSION Status: Chronic Qualifiers: (9) Sepsis Code(s): A41.9 - SEPSIS, UNSPECIFIED ORGANISM Status: Resolved Qualifiers: - Plan is on oral vanc, wound care, had bedside debridement of heel ulcer, no sign of osteomyelitis. continue asp, lipitor, cardizem Cd, aricept, namenda and zoloft PT to mobilize as tolerated dc planning hemostable
[2019-05-30] MEDS: Collagenase 250 UNITS/GM Ointment 30 GM TUBE TOP SCH (16:30)
--- NOTE | 2019-05-30 18:40 | PRG ---
DATE OF SERVICE: 05/30/2019 SUBJECTIVE: The patient is eating her dinner. She is feeling better, not much cough. No dyspnea. No abdominal pain. 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 OBJECTIVE: VITAL SIGNS: T-max 98.8, blood pressure 130/83, pulse 58, respirations 22, O2 saturation 96%. GENERAL: She appears in no distress, oriented to self, knows she is in the hospital, could not tell me the name or the date. LUNGS: With faint basilar wheezes. HEART: S1 and S2. Regular rate. ABDOMEN: Moderately distended, but not tender. No ascites. No bladder distention. LABORATORY DATA: White cell count 10.9, hemoglobin 10.1, platelets 200. Creatinine 0.94. Microbiology with negative blood cultures thus far at 48 hours. Urine culture, no growth at 36 hours. ASSESSMENT AND DISCUSSION: Atrial fibrillation; cognitive impairment, probably due to vascular dementia; chronic heel ulcer, left side medial aspect; fever; and recently diagnosed Clostridium difficile colitis. Again, possibilities include transient bacteremia from the heel ulcer, which appears to be less likely versus fever from the Clostridium difficile colitis. I have increased the dosage of vancomycin, and we could consider discharge planning if she remains stable by tomorrow on vancomycin to complete a full course of therapy for 2 weeks and then transition to a tapering dose of oral vancomycin. Job ID: [id number]
[2019-05-30] MEDS: Atorvastatin Calcium 40 MG TAB PO SCH (20:49)
[2019-05-30] MEDS: Melatonin 3 MG TAB PO SCH (20:49)
[2019-05-30] MEDS: Donepezil HCl 10 MG TAB PO SCH (20:49)
[2019-05-30] MEDS: Fluticasone Propionate Nasal Spray 16 gm Bottle NASAL SCH (20:50)
[2019-05-31] MEDS: Vancomycin HCl 25 MG/ML Oral PO SCH ×2 (05:17→11:22)
[2019-05-31] MEDS: Aspirin 325 MG TAB PO SCH (09:14)
[2019-05-31] MEDS: Acyclovir 400 mg Tablet PO SCH (09:14)
[2019-05-31] MEDS: Famotidine 20 MG TAB PO SCH (09:14)
[2019-05-31] MEDS: Saccharomyces boulardii 250 MG CAP PO SCH (09:14)
[2019-05-31] MEDS: Loratadine 10 MG TAB PO SCH (09:15)
[2019-05-31] MEDS: Enoxaparin Sodium 40 MG/0.4 ML SYRINGE SC SCH (09:15)
[2019-05-31] MEDS: Collagenase 250 UNITS/GM Ointment 30 GM TUBE TOP SCH (09:15)
[2019-05-31 12:40] VITALS: BP 155/68; TEMP 98
--- NOTE | 2019-05-31 20:39 | DIS ---
DATE OF ADMISSION: 05/28/2019 DATE OF DISCHARGE: 05/31/2019 REASON FOR ADMISSION: Fever and weakness. SIGNIFICANT FINDINGS: The patient found to have lower extremity ulceration of the foot, which is subacute and she is also found to have recurrent Clostridium difficile infection. PROCEDURES PERFORMED AND TREATMENTS RENDERED: The patient was admitted to the medical unit, please see full history and physical from 05/29/2019 for full details. The patient was seen and evaluated by infectious disease specialist, Dr. Baum, please see full consultation notes and progress notes for details. Dr. Baum was adjusting antibiotic therapy appropriately throughout her hospitalization. The patient was seen by Dr. Mcqueen, doctor of podiatric medicine, please see full consultation note for details. There was a bedside debridement that was performed per Podiatry and the patient had recommendations for an offloading boot. The patient was evaluated by Physical Therapy and Occupational Therapy and recommended safe for discharge to custodial facility versus swing bed, however, the family refused this. The patient's family adamant that they will take her home and care for in the home setting with the addition of home health. The patient was recommended safe for discharge by all specialists. The patient was recommended vancomycin with a tapering dose per infectious disease specialist and this was prescribed per infectious disease specialist. The patient will follow up with infectious disease specialist in the next 1 to 2 weeks. The patient will follow up with doctor of podiatric medicine in the next 1 to 2 weeks. The patient recommended to follow up with primary care physician in the next 5 to 7 days. The patient recommended to take all medications as directed. The patient recommended to return to acute care hospital immediately if she is unable to comply with any of the previously mentioned steps. CONDITION ON DISCHARGE: Stable. SPECIFIC INSTRUCTIONS FOR THE PATIENT/FAMILY: 1. The patient is recommended to take all medications as directed. 2. The patient is recommended to follow up with primary care physician in the next 5 to 7 days. 3. The patient is recommended to follow up with Podiatry in the next 1 to 2 weeks. 4. The patient is recommended to follow up with Infectious Disease in the next 1 to 2 weeks. 5. The patient is recommended to return to acute care hospital immediately if signs or symptoms return, worsen, or any other new symptoms occur. 6. The patient is recommended to return to acute care hospital immediately if she is unable to comply with any of the previously mentioned steps. DISCHARGE MEDICATIONS: Please see full discharge medication list for details. 1. Vancomycin 125 mg one tablet p.o. q.6 hours, to be followed by a tapering dose. 2. Saccharomyces boulardii 250 mg one tablet p.o. daily. 3. Acyclovir 400 mg one tablet p.o. b.i.d. 4. Atorvastatin 20 mg one tablet p.o. at bedtime. 5. Diltiazem 120 mg one tablet p.o. daily. 6. Donepezil 5 mg one tablet p.o. at bedtime. 7. Omeprazole 20 mg one tablet p.o. daily. 8. Aspirin 325 mg one tablet p.o. daily. 9. Namenda 10 mg one tablet p.o. at bedtime. 10. Zyrtec 10 mg one tablet p.o. daily. 11. Vitamin D3 5000 units p.o. daily. 12. Fluticasone propionate two sprays each nostril at bedtime. 13. Melatonin 3 mg p.o. at bedtime p.r.n. insomnia. 14. Zoloft 25 mg one tablet p.o. at bedtime. TIME SPENT: Greater than 34 minutes spent coordinating care and discharge process for this patient. Job ID: [id number]
--- NOTE | 2019-06-03 08:48 | PQF ---
DATE: 06/03/2019 ATTN: JERICHO ROSENBERG Please exercise your independent, professional judgment in responding to the clarification form. Clinical indicators are provided on the bottom of this form for your review Please check appropriate box(s) to clarify if the following diagnosis has been ruled in or ruled out: SEPSIS [ XX ] Ruled in diagnosis [ ] Continue to treat [ ] Resolved [ ] Ruled out diagnosis [ ] Cannot rule out diagnosis [ ] Other diagnosis [ ] Unable to determine CLINICAL INDICATORS - - presents to ED for Sepsis workup - ED provider report on 05/28/2019,DO José Miguel Esposito - T max 102 , WBC 13 - ED provider report on 05/28/2019,DO José Miguel Esposito - Sepsis - ED provider report on 05/28/2019,DO José Miguel Esposito - Fever and weakness - H and P on 05/29/2019 ,Catalino Mckeon RISK FACTORS : - decubitus ulcer has become infected - H and P on 05/29/2019 ,Catalino Mckeon - persistance of Clostridium difficile - Consult on 05/29/19 , Dev Baum - possibilities include bacteremia from the heel ulcer - Progress notes on ,Dev Baum TREATMENTS - Received Vanc and ceftriaxone - ED provider report on 05/28/2019,DO José Miguel Esposito - started on IV antibiotics - H and P on 05/29/2019 ,Catalino Mckeon - had bedside debridement of heel ulcer - Hospital PNs on 05/30/19 , Chip Rodarte (This form is maintained as a part of the permanent medical record) DANIELLE
--- NOTE | 2019-06-03 08:49 | PQF ---
MANJIT MCGRAW EDUARDO DPM [id number] CLINICAL DOCUMENTATION CLARIFICATION FORM: POST DISCHARGE Addendum to original discharge summary date: ____ Late entry note date: __ DATE: 06/03/2019 ATTN: MAXIMILIANO MCQUEEN DPM Please exercise your independent, professional judgment in responding to the clarification form. Clinical indicators are provided on the bottom of this form for your review Please check appropriate box(s): [ ] Excisional Debridement: [ ] Excised [ ] Cut away [ ] Other: Depth / layer: (deepest layer of debridement): [ ] Skin[ ] SubQ Tissue [ ] Fascia [ ] Muscle [ ] Tendon [ ] Bone Appearance of wound: (e.g., down to fresh bleeding tissue, etc.)___ Margins: (please specify): / x x Instruments used: [ ] Scissors [ ] Scalpel [ ] Curette [ ] Soft tissue clipper [ ] Other: [ ] Non-excisional Debridement: (Removal by flushing, brushing, chemical, or washing) Depth / layer: (deepest layer of debridement): [ ] Skin[ ] Subcutaneous [ ] Fascia [ ] Muscle [ ] Tendon [ ] Bone [ ] Other procedure [ ] Unable to determine CLINICAL INDICATORS - - With a 15 blade, sharp debridement was performed - Consult on 05/29/19, Maximiliano Mcqueen DPM - Good ulcer bleeding was noted at subcutaneous . Consult on , Maximiliano Mcqueen DPM - had bed side debridement - Hospital PNs on 05/30/19, Felicia Saunders RISK FACTORS - decubitus ulcer has become infected - H and P on 05/29/19 , Catalino Mckeon - swelling and erythema around the ulcer -H and P on 05/29/19 , Catalino Mckeon TREATMENTS: - Wound care inhouse [facility] has been conculted - Consult on 05/29/19 , Maximiliano Mcqueen DPM - Vleansing the ulcer every day with wound ckleanser - Consult on 05/29/19, Maximiliano Mcqueen DPM - Vancomycin IV antibiotics - Consult on 05/29/19, Maximiliano Mcqueen DPM MTDD
== END 2019-05-31 14:35 | disposition home health service (06) | DRG 854 ==
LOC: ERS 18:37 → T4-A 20:27
PROVIDERS: ADMIT Internal Medicine; ATTEND Internal Medicine
PROC: 0JBR0ZZ Excision of Left Foot Subcutaneous Tissue and Fascia, Open Approach (ICD-10-PCS; principal; 2019-05-29)
DX: A41.9 Sepsis, unspecified organism (principal); A04.71 Enterocolitis due to Clostridium difficile, recurrent; I48.91 Unspecified atrial fibrillation; Z79.01 Long term (current) use of anticoagulants; K21.9 Gastro-esophageal reflux disease without esophagitis; Z88.6 Allergy status to analgesic agent; I10 Essential (primary) hypertension; G30.9 Alzheimer's disease, unspecified; Z86.718 Personal history of other venous thrombosis and embolism; Z86.711 Personal history of pulmonary embolism; E78.5 Hyperlipidemia, unspecified; Z86.73 Personal history of transient ischemic attack (TIA), and cerebral infarction without residual deficits; G62.9 Polyneuropathy, unspecified; F01.50 Vascular dementia, unspecified severity, without behavioral disturbance, psychotic disturbance, mood disturbance, and anxiety; L89.620 Pressure ulcer of left heel, unstageable
CPT/HCPCS: 36415; 80048; 85025; 96365; J0692; J0744; J1650; J3370; J3490

== ENCOUNTER 2020-03-09 18:07 | Emergency (ER) | payer MEDICARE | END 2020-03-10 00:19 | LOC: ERS 18:07 | DX: R53.1 Weakness (principal); R26.2 Difficulty in walking, not elsewhere classified; M79.81 Nontraumatic hematoma of soft tissue; I48.91 Unspecified atrial fibrillation; K21.9 Gastro-esophageal reflux disease without esophagitis; G62.9 Polyneuropathy, unspecified; Z79.899 Other long term (current) drug therapy; Z79.82 Long term (current) use of aspirin | CPT/HCPCS: 99285 ==